=== PATIENT | male | born 1930 | race African-American/Black ===

== ENCOUNTER 2018-11-20 15:52 | Inpatient (IN) | payer OTHER ==
--- NOTE | 2018-11-20 16:13 | RAD REPORT ---
EXAM DESCRIPTION: RAD - Chest Single View - 11/20/2018 4:08 pm CLINICAL HISTORY: CONGESTION Chest pain. COMPARISON: No comparisons FINDINGS: Portable technique limits examination quality. The lungs are grossly clear. The heart is normal in size. No displaced fractures. IMPRESSION: No acute intrathoracic process suspected.
[2018-11-20] MEDS ORDERED: VANCOMYCIN/NS 1 gm 1 GM/250 ML BAG IV SCH (16:15)
[2018-11-20] MEDS ORDERED: NA CHLORIDE 0.9% 2,000 ML ONE (16:23)
[2018-11-20] MEDS ORDERED: CEFEPIME 1 GM/100 ML BAG IV ONE (16:24)
[2018-11-20] MEDS ORDERED: ACETAMINOPHEN 650MG/RECT SUPP PR ONE (16:25)
--- NOTE | 2018-11-20 16:30 | RAD REPORT ---
EXAM DESCRIPTION: CT - Head Brain Wo Cont - 11/20/2018 4:24 pm CLINICAL HISTORY: CONFUSED Headache, drowsiness COMPARISON: <Comparisons> TECHNIQUE: All CT scans are performed using dose optimization technique as appropriate and may inclu de automated exposure control or mA/KV adjustment according to patient size. FINDINGS: No intracranial hemorrhage, hydrocephalus or extra-axial fluid collection.Advanced general ized brain atrophy is present with advanced periventricular and deep white matter chronic microvascul ar ischemic changes.No areas of brain edema or evidence of midline shift. The paranasal sinuses and mastoids are clear. The calvarium is intact. IMPRESSION: No acute intracranial abnormality.
[2018-11-20 17:06] LABS: Absolute Lymphocytes (CBC) 0.5 K/uL (0.7-4.9); Basophils % 0.3 % (0-1.3); Hematocrit 35.2 % (39.6-49.0); MPV 10.3 fL (7.6-11.3); Monocytes % 5.2 % (3.3-12.3); RBC Red Blood Cell Count 3.64 M/uL (4.33-5.43)
[2018-11-20 17:09] LABS: Protime INR 2.11
[2018-11-20 17:24] LABS: ALT/SGPT 57 U/L (12-78); AST/SGOT 52 U/L (15-37); Albumin 2.9 g/dL (3.4-5.0); Alkaline Phosphatase 76 U/L (45-117); BUN Blood Urea Nitrogen 37 mg/dL (7-18); Bicarbonate 28 mmol/L (21-32); Bilirubin Direct 0.2 mg/dL (0-0.2); Bilirubin Total 0.7 mg/dL (0.2-1.0); CKMB Creatine Kinase MB < 1.0 ng/mL (0.3-3.6); Glucose Level 116 mg/dL (74-106); Potassium 4.1 mmol/L (3.5-5.1); Sodium Level 149 mmol/L (136-145); Troponin (Emerg Dept Use Only) 0.14 ng/mL (0.0-0.045)
[2018-11-20 17:32] LABS: Platelet Estimate ADEQ; Urine White Blood Cell Casts OK
[2018-11-20 17:33] LABS: Blood Morphology Comment NOT SEEN (NOT SEEN); Polychromasia SLIGHT
--- NOTE | 2018-11-20 18:10 | ER ---
Nurse's Notes [facility] Name: Sly Sutton Age: 87 yrs Sex: Male : 1930 Arrival Date: 11/20/2018 Time: 15:56 Bed 24 Private MD: Diagnosis: Cystitis, unspecified without hematuria;Sepsis due to other Gram-negative organisms Presentation: 11/20 15:50 Presenting complaint: EMS states: Pt from [facility], staff reports that pt was at ph baseline mental status at 1400, then found w/ AMS and high fever approx 1 hr later, hx of dementia but can usually speak and hold conversation, now only responding w/ grunts, temp for EMS 102.7, pt having difficulty drinking fluids so no PO meds given, IV initiated and approx 200 mL NS given, BBB noted on 12 lead, BP WNL, HR 105, BGL 106. Transition of care: patient was received from another setting of care (long-term care facility), [facility]. Onset of symptoms was November 20, 2018. Risk Assessment: Do you want to hurt yourself or someone else? Patient reports no desire to harm self or others. Initial Sepsis Screen: Does the patient meet any 2 criteria? RR > 20 per min. Temp <36.0*C (96.8*F)) or > 38.3*C (100.9*F). Altered Mental Status. HR > 90 bpm. Yes Does the patient have a suspected source of infection? Yes: Productive cough/pneumonia. Care prior to arrival: Medication(s) given: Normal saline infusion, 200 mL IV initiated. 20 GA, in the left hand, Glucose check: 106 Oxygen administered. via nasal cannula. 15:50 Method Of Arrival: EMS: [facility] ph 15:50 Acuity: FIORELLA 2 ph Historical: - Allergies: 16:18 No Known Allergies; ph - Home Meds: 18:16 amlodipine 5 mg tab 1 tab once daily [Active]; aspirin 81 mg Oral chew 1 tab once daily ph [Active]; cyanocobalamin (vitamin B-12) 500 mcg oral tab daily [Active]; furosemide 20 mg Oral tab 1 tab once daily [Active]; isosorbide mononitrate 30 mg Oral Tb24 1 tab once daily [Active]; levothyroxine 50 mcg tab 1 tab once daily [Active]; lovastatin 20 mg Oral tab 1 tab once daily [Active]; melatonin 3 mg Oral tab nightly [Active]; Risperdal 0.25 mg Oral tab 1 tabs as needed [Active]; Xarelto 15 mg oral tab [Active]; Risperdal 0.25 mg Oral tab 1 tabs nightly [Active]; Tylenol 325 mg oral tab 2 tabs every 6 hours [Active]; - PMHx: 16:18 Dementia; UTI; Hypertension; Hypothyroidism; Hyperlipidemia; DVT; ph - Immunization history:: Adult Immunizations unknown. - Social history:: Patient/guardian denies using alcohol, street drugs, The patient lives in [place] [facility], Smoking status: unknown. - Ebola Screening: : No symptoms or risks identified at this time. - Code Status:: DNR. Screenin:20 Abuse screen: Denies threats or abuse. Denies injuries from another. Nutritional ph screening: No deficits noted. Tuberculosis screening: No symptoms or risk factors identified. Fall Risk Fall in past 12 months (25 points). Secondary diagnosis (15 points) dementia, IV access (20 points). Ambulatory Aid- None/Bed Rest/Nurse Assist (0 pts). Gait- Weak (10 pts.). Mental Status- Overestimates/Forgets Limitations (15 pts.). Total Garcia Fall Scale indicates High Risk Score (45 or more points). Fall prevention measures have been instituted. Side Rails Up X 2 Placed Close to Nursing Station Frequent Obs/Assessments Occuring. Assessment: 16:10 General: Appears in no apparent distress. well groomed, Behavior is drowsy, quiet. ph Pain: Unable to use pain scale. Patient is disoriented. Neuro: Level of Consciousness is awake, lethargic, listless, Oriented to person. Cardiovascular: Capillary refill < 3 seconds in bilateral fingers Patient's skin is warm and dry. Respiratory: Airway is patent Respiratory effort is even, unlabored, Respiratory pattern is regular, symmetrical. GI: Abdomen is round non-distended. Derm: Skin is intact, with poor turgor Skin is normal, Skin temperature is hot. Musculoskeletal: Circulation, motion, and sensation intact. Range of motion: intact in all extremities, Swelling absent. 17:20 Reassessment: Attempted straight cath to obtain urine, unable to advance past prostate, ph ERP notified, will attempt again w/ coud catheter. 17:38 Reassessment: Patient appears in no apparent distress at this time. Patient and/or ph family updated on plan of care and expected duration. Pain level reassessed. Pt resting quietly, appears more alert and responsive, oriented to person only, family at bedside, oral temp decreased to 100.4, other VS WNL. 18:31 Reassessment: Patient appears in no apparent distress at this time. Patient and/or ph family updated on plan of care and expected duration. Pain level reassessed. Pt more alert, found standing at foot of bed attempting to remove lines and monitoring equipment, assisted back into bed by myself and another nurse, moved to bed 3 to remain in site of nurse, now resting quietly w/ stable VS. 18:38 Reassessment: Patient appears in no apparent distress at this time. Patient and/or ph family updated on plan of care and expected duration. Pain level reassessed. Dr Hardy at bedside. 19:09 Reassessment: Patient appears in no apparent distress at this time. Patient and/or ph family updated on plan of care and expected duration. Pain level reassessed. Pt to be ER hold until bed available, report given to MONIK Young and pt moved to ED 24. 19:43 Reassessment: Patient appears in no apparent distress at this time. No changes from fv previously documented assessment. Patient and/or family updated on plan of care and expected duration. Pain level reassessed. Patient alert and oriented x2 tries to get out of bed, but cooperative in getting back to bed. Vital Signs: 16:00 BP 144 / 81; Pulse 105; Resp 22; Temp 103.2; Pulse Ox 92% on R/A; Weight 74.84 kg; ph 16:30 BP 132 / 68; Pulse 102; Resp 18; Pulse Ox 98% on 2 lpm NC; ph 17:15 BP 112 / 70; Pulse 94; Resp 18; Pulse Ox 100% on 2 lpm NC; ph 17:15 Temp 100.4(O); ph 18:00 BP 126 / 76; Pulse 96; Resp 20; Pulse Ox 99% ; ph 18:38 BP 124 / 62; Pulse 94; Resp 16; Temp 99.2; Pulse Ox 98% on R/A; ph 20:28 BP 139 / 89; Pulse 97; Resp 20; Temp 98.7; Pulse Ox 99% ; fv Sravani Coma Score: 16:00 Eye Response: spontaneous(4). Verbal Response: incomprehensible(2). Motor Response: ph obeys commands(6). Total: 12. 18:38 Eye Response: spontaneous(4). Verbal Response: confused(4). Motor Response: obeys ph commands(6). Total: 14. ED Course: 15:56 Patient arrived in ED. ph 15:59 Shasta Ugalde MD is Attending Physician. ma2 16:00 Tayla Goff RN is Primary Nurse. ph 16:08 Chest Single View XRAY In Process Unspecified. EDMS 16:19 Maintain EMS IV. Dressing intact. Good blood return noted. Site clean \T\ dry. Gauge \T\ ph site: 20 G Lhand. Oxygen administration via nasal cannula \T\ 2L/min. 16:24 CT completed. Patient tolerated procedure well. Patient moved back from CT. mw3 16:25 CT Head Brain wo Cont In Process Unspecified. EDMS 16:26 Triage completed. ph 16:26 Arm band placed on Patient placed in an exam room, on a stretcher, on oxygen, on ph director of cardiac cath lab, on pulse oximetry. 16:26 Patient has correct armband on for positive identification. Placed in gown. Bed in low ph position. Call light in reach. Side rails up X2. etiquette coach on. Pulse ox on. NIBP on. Head of bed elevated. 16:50 Inserted saline lock: in left upper arm, using aseptic technique. Blood collected. ph inserted by Misael Wilson RN Accessed peripheral vein via ultrasound, utilizing dynamic ultrasound technique using 20G Nexia IV catheter Clean \T\ dry. Dressing intact. 18:08 Napoleon Elkins MD is Hospitalizing Provider. ma2 18:41 No provider procedures requiring assistance completed. Patient admitted, IV remains in ph place. Administered Medications: 16:19 Drug: Acetaminophen Suppository 650 mg Route: CO; ca1 17:44 Follow up: Response: No adverse reaction; Temperature is decreased ph 16:50 Drug: NS 0.9% (30 ml/kg) 30 ml/kg {Note: 2000 mL .} Route: IV; Rate: bolus; Site: left ph upper arm; 18:43 Follow up: Response: No adverse reaction; IV Status: Completed infusion; IV Intake: ph 2000ml 17:00 Drug: vancoMYCIN 1 grams Route: IVPB; Infused Over: 2 hrs; Site: left upper arm; ph 18:30 Follow up: Response: No adverse reaction; IV Status: Completed infusion; IV Intake: ph 250ml 17:13 Drug: Cefepime 1 grams Route: IVPB; Rate: 200 ml/hr; Infused Over: 30 mins; Site: left ph hand; 18:00 Follow up: Response: No adverse reaction; IV Status: Completed infusion; IV Intake: ph 100ml Intake: 18:00 IV: 100ml; Total: 100ml. ph 18:30 IV: 250ml; Total: 350ml. ph 18:43 IV: 2000ml; Total: 2350ml. ph Outcome: 18:09 Decision to Hospitalize by Provider. ma2 19:10 Admitted to ER Hold. Please see [facility] for further documentation. ph 19:10 Condition: improved 11/21 00:07 Patient left the ED. lt1 Signatures: Dispatcher [employer] Tayla Bauer RN RN Len Piper RN RN Shasta Ugalde MD MD ma2 Mary Cueva mw3 Ora Arizmendi RN RN ca1 Tran, Leah lt1
--- NOTE | 2018-11-20 18:10 | EDPHYS ---
Physician Documentation [facility] Name: Sly Sutton Age: 87 yrs Sex: Male : 1930 Arrival Date: 11/20/2018 Time: 15:56 Bed 24 Private MD: ED Physician Shasta Ugalde HPI: 11/20 16:01 This 87 yrs old Male presents to ER via Unassigned with complaints of confusion . ma2 16:01 The patient presents with confusion, decreased mental status. Onset: The ma2 symptoms/episode began/occurred gradually, 1 day(s) ago. Associated signs and symptoms: Pertinent negatives: ataxia, combativeness, dizziness. Associated signs and symptoms: Pertinent positives: confusion. Current symptoms: In the emergency department the patient's symptoms are unchanged from the initial presentation. Patient's baseline: Neuro: alert but confused, orientated to person. Unable to obtain HPI due to altered mental status. The patient has experienced similar episodes in the past. Historical: - Allergies: 16:18 No Known Allergies; ph - Home Meds: 18:16 amlodipine 5 mg tab 1 tab once daily [Active]; aspirin 81 mg Oral chew 1 tab once daily ph [Active]; cyanocobalamin (vitamin B-12) 500 mcg oral tab daily [Active]; furosemide 20 mg Oral tab 1 tab once daily [Active]; isosorbide mononitrate 30 mg Oral Tb24 1 tab once daily [Active]; levothyroxine 50 mcg tab 1 tab once daily [Active]; lovastatin 20 mg Oral tab 1 tab once daily [Active]; melatonin 3 mg Oral tab nightly [Active]; Risperdal 0.25 mg Oral tab 1 tabs as needed [Active]; Xarelto 15 mg oral tab [Active]; Risperdal 0.25 mg Oral tab 1 tabs nightly [Active]; Tylenol 325 mg oral tab 2 tabs every 6 hours [Active]; - PMHx: 16:18 Dementia; UTI; Hypertension; Hypothyroidism; Hyperlipidemia; DVT; ph - Immunization history:: Adult Immunizations unknown. - Social history:: Patient/guardian denies using alcohol, street drugs, The patient lives in a retirement, Smoking status: unknown. - Ebola Screening: : No symptoms or risks identified at this time. - Code Status:: DNR. ROS: 16:01 Eyes: Negative for injury, pain, redness, and discharge. ma2 16:01 All other systems are negative. 16:01 Unable to obtain ROS due to altered mental status. Exam: 16:01 Constitutional: This is a well developed, well nourished patient who is awake, alert, ma2 and in no acute distress. Eyes: Pupils equal round and reactive to light, extra-ocular motions intact. Lids and lashes normal. Conjunctiva and sclera are non-icteric and not injected. Cornea within normal limits. Periorbital areas with no swelling, redness, or edema. Neck: Trachea midline, no thyromegaly or masses palpated, and no cervical lymphadenopathy. Supple, full range of motion without nuchal rigidity, or vertebral point tenderness. No Meningismus. Chest/axilla: Normal chest wall appearance and motion. Nontender with no deformity. No lesions are appreciated. Cardiovascular: Regular rate and rhythm with a normal S1 and S2. No gallops, murmurs, or rubs. Normal PMI, no JVD. No pulse deficits. Abdomen/GI: Soft, non-tender, with normal bowel sounds. No distension or tympany. No guarding or rebound. No evidence of tenderness throughout. MS/ Extremity: Pulses equal, no cyanosis. Neurovascular intact. Full, normal range of motion. Neuro: Awake and alert, GCS 15, oriented to person, place, time, and situation. Cranial nerves II-XII grossly intact. Motor strength 5/5 in all extremities. Sensory grossly intact. Cerebellar exam normal. Normal gait. 16:01 Respiratory: moderate respiratory distress is noted, Respirations: labored breathing, Breath sounds: rhonchi, that are moderate, are located in both bases. Vital Signs: 16:00 BP 144 / 81; Pulse 105; Resp 22; Temp 103.2; Pulse Ox 92% on R/A; Weight 74.84 kg; ph 16:30 BP 132 / 68; Pulse 102; Resp 18; Pulse Ox 98% on 2 lpm NC; ph 17:15 BP 112 / 70; Pulse 94; Resp 18; Pulse Ox 100% on 2 lpm NC; ph 17:15 Temp 100.4(O); ph 18:00 BP 126 / 76; Pulse 96; Resp 20; Pulse Ox 99% ; ph 18:38 BP 124 / 62; Pulse 94; Resp 16; Temp 99.2; Pulse Ox 98% on R/A; ph 20:28 BP 139 / 89; Pulse 97; Resp 20; Temp 98.7; Pulse Ox 99% ; fv Sravani Coma Score: 16:00 Eye Response: spontaneous(4). Verbal Response: incomprehensible(2). Motor Response: ph obeys commands(6). Total: 12. 18:38 Eye Response: spontaneous(4). Verbal Response: confused(4). Motor Response: obeys ph commands(6). Total: 14. MDM: 15:59 Patient medically screened. [facility] 16:01 Differential Diagnosis: pneumonia, sepsis, TIA, UTI, volume depletion. [facility] 18:07 Data reviewed: vital signs, nurses notes. Counseling: I had a detailed discussion with [facility] the patient and/or guardian regarding: the historical points, exam findings, and any diagnostic results supporting the discharge/admit diagnosis, the presence of at least one elevated blood pressure reading (>120/80) during this emergency department visit, the need for further work-up and treatment in the hospital. Response to treatment: the patient's symptoms have markedly improved after treatment. ED course: has UTI, sepsis, elevated trop ekg with rbbb no ischemic changed no chest pain discussed with dr. elkins ]. 07 16:01 Order name: Urine Culture [facility] 11/20 16:01 Order name: Basic Metabolic Panel [facility] 11/20 16:01 Order name: Blood Culture Adult (2) [facility] 11/20 16:01 Order name: CBC with Diff [facility] 11/20 16:01 Order name: Ckmb [facility] 11/20 16:01 Order name: CPK [facility] 11/20 16:01 Order name: Lactate [facility] 11/20 16:01 Order name: LFT's [facility] 11/20 16:01 Order name: Lipase [facility] 11/20 16:01 Order name: Procalcitonin [facility] 11/20 16:01 Order name: Protime (+inr); Complete Time: 17:36 [facility] 11/20 16:01 Order name: Ptt, Activated; Complete Time: 17:36 [facility] 11/20 16:01 Order name: Troponin (emerg Dept Use Only); Complete Time: 17:36 [facility] 11/20 16:01 Order name: Urine Microscopic Only [facility] 11/20 16:01 Order name: Chest Single View XRAY; Complete Time: 16:45 [facility] 11/20 16:01 Order name: CT Head Brain wo Cont; Complete Time: 16:45 [facility] 11/20 16:02 Order name: Urine Culture [facility] 11/20 16:02 Order name: Basic Metabolic Panel; Complete Time: 17:41 [facility] 11/20 16:03 Order name: Blood Culture [facility] 11/20 16:03 Order name: CBC with Automated Diff; Complete Time: 17:36 [facility] 11/20 16:03 Order name: CKMB Creatine Kinase MB; Complete Time: 17:41 [facility] 11/20 16:03 Order name: Creatine Phosphokinase; Complete Time: 17:41 [facility] 11/20 16:03 Order name: Lactate; Complete Time: 17:36 [facility] 11/20 16:04 Order name: Liver (Hepatic) Function; Complete Time: 17:41 [facility] 11/20 16:04 Order name: Lipase; Complete Time: 17:36 [facility] 11/20 16:04 Order name: Procalcitonin; Complete Time: 17:41 [facility] 11/20 17:07 Order name: CBC Smear Scan; Complete Time: 17:36 [facility] 11/20 18:10 Order name: Urine Dipstick--Ancillary (enter results) 11/20 16:01 Order name: Accucheck; Complete Time: 17:13 [facility] 11/20 16:01 Order name: Cardiac monitoring; Complete Time: 17:13 [facility] 11/20 16:01 Order name: EKG - Nurse/Tech; Complete Time: 17:13 [facility] 11/20 16:01 Order name: IV Saline Lock - Large Bore; Complete Time: 17:13 [facility] 11/20 16:01 Order name: Labs collected and sent; Complete Time: 17:13 [facility] 11/20 16:01 Order name: O2 Per Protocol; Complete Time: 17:13 [facility] 11/20 16:01 Order name: O2 Sat Monitoring; Complete Time: 17:15 [facility] 11/20 16:01 Order name: Urine Dipstick-Ancillary (obtain specimen); Complete Time: 18:43 [facility] 11/20 18:16 Order name: CONS Pharmacy Consult [facility] 11/20 18:16 Order name: NPO EDMS Administered Medications: 16:19 Drug: Acetaminophen Suppository 650 mg Route: MO; ca1 17:44 Follow up: Response: No adverse reaction; Temperature is decreased ph 16:50 Drug: NS 0.9% (30 ml/kg) 30 ml/kg {Note: 2000 mL .} Route: IV; Rate: bolus; Site: left upper arm; 18:43 Follow up: Response: No adverse reaction; IV Status: Completed infusion; IV Intake: ph 2000ml 17:00 Drug: vancoMYCIN 1 grams Route: IVPB; Infused Over: 2 hrs; Site: left upper arm; ph 18:30 Follow up: Response: No adverse reaction; IV Status: Completed infusion; IV Intake: ph 250ml 17:13 Drug: Cefepime 1 grams Route: IVPB; Rate: 200 ml/hr; Infused Over: 30 mins; Site: left hand; 18:00 Follow up: Response: No adverse reaction; IV Status: Completed infusion; IV Intake: ph 100ml Disposition: 11/20/18 18:09 Hospitalization ordered by Napoleon Elkins for Inpatient Admission. Preliminary diagnosis are Cystitis, unspecified without hematuria, Sepsis due to other Gram-negative organisms. - Bed requested for Telemetry/MedSurg (Inpatient). - Status is Inpatient Admission. lt1 - Condition is Guarded. - Problem is new. - Symptoms have improved. UTI on Admission? Yes Signatures: Dispatcher [employer] EDMS Susana Crawley RN RN Tayla Goff RN RN Shasta Ugalde MD MD nm2 Ora Arizmendi RN RN [address], [place] lt1 Corrections: (The following items were deleted from the chart) 21:27 18:09 Hospitalization Ordered by Napoleon Elkins MD for Inpatient Admission. Preliminary diagnosis is Cystitis, unspecified without hematuria; Sepsis due to other Gram-negative organisms. Bed requested for Telemetry/MedSurg (Inpatient). Status is Inpatient Admission. Condition is Guarded. Problem is new. Symptoms have improved. UTI on Admission? Yes. ma2 11/21 00:07 11/20 21:27 11/20/2018 18:09 Hospitalization Ordered by Napoleon Elkins MD for lt1 Inpatient Admission. Preliminary diagnosis is Cystitis, unspecified without hematuria; Sepsis due to other Gram-negative organisms. Bed requested for Telemetry/MedSurg (Inpatient). Status is Inpatient Admission. Condition is Guarded. Problem is new. Symptoms have improved. UTI on Admission? Yes. fc
[2018-11-20 18:14] LABS: Urine Blood 3+ (NEG); Urine Glucose NEGATIVE (NEG); Urine Protein NEGATIVE (NEG)
[2018-11-20 18:14] LABS: Urine Volume 0.5 ML
[2018-11-20 18:16] LABS: Urine Bacteria 20-50 /HPF (NONE SEEN); Urine Culture Reflex Order REFLEXED
[2018-11-20] MEDS ORDERED: NA CHLORIDE 0.9% 1,000 ML ONE (20:18)
[2018-11-20] MEDS: NA CHLORIDE 0.9% 1,000 ML IV SCH (20:40)
[2018-11-21] MEDS: NA CHLORIDE 0.9% 1,000 ML IV SCH (05:00)
[2018-11-21 07:17] LABS: Absolute Lymphocytes (CBC) 1.7 K/uL (0.7-4.9); Basophils % 0.8 % (0-1.3); Eosinophils % 0.1 % (0-4.4); Hematocrit 30.3 % (39.6-49.0); Lymphocytes % 10.2 % (15.3-44.8); RBC Red Blood Cell Count 3.18 M/uL (4.33-5.43)
[2018-11-21 07:35] LABS: Albumin 2.4 g/dL (3.4-5.0); Bilirubin Total 0.8 mg/dL (0.2-1.0); Potassium 4.3 mmol/L (3.5-5.1); Protein, Total 6.9 g/dL (6.4-8.2)
--- NOTE | 2018-11-21 08:44 | EKG ---
Test Date: 2018-11-20 Test Time: 16:33:41 Check Weigher: FERNANDO MEASUREMENT RESULTS: Intervals: Rate: 102 DC: 144 QRSD: 134 QT: 384 QTc: 500 [place]: P: 79 DC: 144 QRS: -78 T: 68 INTERPRETIVE STATEMENTS: Sinus tachycardia with premature atrial complexes Right bundle branch block Left anterior fascicular block Bifascicular block Septal infarct, age undetermined Abnormal ECG No previous ECG available for comparison Electronically Signed On 11-21-18 08:42:25 CDT by Dominic Garcia
[2018-11-21 10:50] LABS: Blood Morphology Comment NOT SEEN (NOT SEEN); Platelet Estimate ADEQ
--- NOTE | 2018-11-21 11:15 | P.HP ---
Certification for Inpatient With expected LOS: >2 Midnights Practitioner: I am a practitioner with admitting privileges, knowledge of patient current condition, hospital course, and medical plan of care. Services: Services provided to patient in accordance with Admission requirements found in Title 42 Section 412.3 of the Code of Federal Regulations Patient History Date of Service: 11/21/18 Reason for admission: Altered mental status History of Present Illness: Patient is 87 years of age with a history of underlying dementia [facility] with altered mental status he was very altered unrest arousable delirious agitated appeared to be volume depleted hypernatremic renal insufficiency elevated CPK patient is nonverbal patient was febrile Allergies No Known Allergies Allergy (Verified 11/21/18 06:45) Home Medications: Amlodipine [Norvasc*] 1 tab PO DAILY 11/21/18 Aspirin [Aspir-Low] 1 tab PO DAILY 11/21/18 Cyanocobalamin (Vitamin B-12) [B-12] 1 tab PO DAILY 11/21/18 Furosemide 1 tab PO DAILY 11/21/18 Isosorbide Mononitrate [Isosorbide Mononitrate ER] 1 tab PO DAILY 11/21/18 Levothyroxine Sodium 1 tab PO DAILY 11/21/18 Lovastatin 1 tab PO DAILY 11/21/18 Melatonin 1 tab PO BEDTIME 11/21/18 Risperidone [Risperdal] 1 tab PO PRN PRN 11/21/18 Rivaroxaban [Xarelto*] 1 tab PO DAILY 11/21/18 - Past Medical/Surgical History Diabetic: No -: Dementia -: HTN -: Hypothyroidism -: Hyperlipidemia -: DVT - Social History Smoking Status: Unknown if ever smoked CD- Drugs: No Caffeine use: No Place of Residence: [facility] Review of Systems is unable to be obtained Physical Examination - Vital Signs Temperature: 98.8 F Blood Pressure: 163/74 Pulse: 90 Respirations: 18 Pulse Ox (%): 99 - Physical Exam General: Alert, Confused, Delirious HEENT: Atraumatic Neck: Supple Respiratory: Diminished Cardiovascular: No edema, Normal S1 S2 Gastrointestinal: Normal bowel sounds, Soft and benign Musculoskeletal: No clubbing, No swelling Neurological: Other (Appears to be moving all his extremities) - Studies Laboratory Data (last 24 hrs) 11/20/18 16:50: PT 24.2 H, INR 2.11, APTT 35.5 11/20/18 16:50: Lipase 180 11/20/18 16:50: WBC 13.5 H, Hgb 10.8 L, Hct 35.2 L, Plt Count 245 11/20/18 16:50: Sodium 149 H, Potassium 4.1, BUN 37 H, Creatinine 2.00 H, Glucose 116 H, Total Bilirubin 0.7, AST 52 H, ALT 57, Alkaline Phosphatase 76 Assessment and Plan - Problems (Diagnosis) (1) Hypernatremia Current Visit: Yes Status: Acute Plan: Patient is 87 years of age admitted from [facility] with altered mental status is appears to be dehydrated with hypernatremia renal insufficiency CPK elevated white count is also elevated possible urinary tract infection white count is also elevated admit for IV fluids IV antibiotics cultures urinalysis shows 4+ gram-negative rods patient was febrile Plan to discharge in: 48 Hours - Advance Directives Does patient have a Living Will: Yes Does patient have a Durable POA for Healthcare: Yes
[2018-11-21] MEDS ORDERED: RISPERIDONE 0.25 MG TABLET PO PRN (11:16)
--- NOTE | 2018-11-21 11:22 | P.PN ---
Subjective Date of Service: 11/21/18 Chief Complaint: Altered mental status No changes still altered blood pressure elevated urinalysis positive for Gram negative rods Review of Systems is unable to be obtained Physical Examination - Vital Signs Temperature: 98.8 F Blood Pressure: 163/74 Pulse: 90 Respirations: 18 Pulse Ox (%): 99 - Physical Exam General: Unresponsive Neck: Supple Respiratory: Clear to auscultation bilaterally, Normal air movement Cardiovascular: No edema, Regular rate/rhythm - Studies Laboratory Data (last 24 hrs) 11/20/18 16:50: PT 24.2 H, INR 2.11, APTT 35.5 11/20/18 16:50: Lipase 180 11/20/18 16:50: WBC 13.5 H, Hgb 10.8 L, Hct 35.2 L, Plt Count 245 11/20/18 16:50: Sodium 149 H, Potassium 4.1, BUN 37 H, Creatinine 2.00 H, Glucose 116 H, Total Bilirubin 0.7, AST 52 H, ALT 57, Alkaline Phosphatase 76 Assessment & Plan - Problems (Diagnosis) (1) Hypernatremia Current Visit: Yes Status: Acute Plan: Patient admitted with volume depletion hypernatremia and renal insufficiency is renal function is improving blood cultures all pending patient is on Rocephin was changed to D5 water thyroid function tests labs
[2018-11-21] MEDS: D5 0.45 NS 1,000 ML IV SCH ×2 (11:45→21:18)
[2018-11-21] MEDS ORDERED: CEFTRIAXONE/SWI 1gm 1 GM/10 ML SYR IV SCH (12:00)
[2018-11-21] MEDS: ISOSORBIDE MONO SR 30 MG TAB PO SCH (12:04)
[2018-11-21] MEDS: ASPIRIN EC 81 MG TAB PO SCH (12:04)
[2018-11-21] MEDS: AMLODIPINE 5 MG TAB PO SCH (12:07)
[2018-11-21] MEDS: RIVAROXABAN 15 MG TABLET PO SCH (18:27)
[2018-11-22] MEDS: LEVOTHYROXINE SOD 0.05 MG TABLET PO SCH (05:37)
[2018-11-22 06:03] LABS: Absolute Lymphocytes (CBC) 0.9 K/uL (0.7-4.9); Basophils % 0.3 % (0-1.3); Eosinophils % 1.9 % (0-4.4); Lymphocytes % 8.8 % (15.3-44.8); MPV 10.7 fL (7.6-11.3); Monocytes % 4.9 % (3.3-12.3); RBC Red Blood Cell Count 3.18 M/uL (4.33-5.43)
[2018-11-22 06:18] LABS: Albumin 2.4 g/dL (3.4-5.0); Bilirubin Total 0.7 mg/dL (0.2-1.0); Potassium 3.5 mmol/L (3.5-5.1); Protein, Total 7.1 g/dL (6.4-8.2)
[2018-11-22] MEDS: D5 0.45 NS 1,000 ML IV SCH ×2 (08:00→18:00)
[2018-11-22] MEDS: Meropenem 1,000 MG in NA CHLORIDE 0.9% 100 ML IV SCH ×2 (09:00→22:20)
[2018-11-22] MEDS ORDERED: Meropenem 1000 MG/VIAL IV SCH (09:00)
[2018-11-22] MEDS: AMLODIPINE 5 MG TAB PO SCH (09:57)
[2018-11-22] MEDS: ASPIRIN EC 81 MG TAB PO SCH (09:57)
[2018-11-22] MEDS: ISOSORBIDE MONO SR 30 MG TAB PO SCH (09:57)
[2018-11-22] MEDS: RIVAROXABAN 15 MG TABLET PO SCH (19:03)
--- NOTE | 2018-11-22 19:39 | RAD REPORT ---
EXAM DESCRIPTION: RAD - Chest Single View - 11/22/2018 7:31 pm CLINICAL HISTORY: Device placement PICC line placement COMPARISON: November 20, 2018 FINDINGS: A PICC line has been inserted with its tip in the mid superior vena cava. The lungs appear clear of acute infiltrate. The heart is normal size. IMPRESSION: PICC line with its tip in the mid superior vena cava
--- NOTE | 2018-11-22 21:43 | PN ---
Date of Progress Note: 11/22/2018 Subjective: The patient is seen and examined. Chart reviewed and case discussed with RN. No family at the bedside. The patient unable to really participate in history due to his baseline dementia. Medications: List reviewed. Code Status: Full. Physical Examination: Vital Signs: Temperature 98.3, heart rate 71, blood pressure 105/56, respirations 18, O2 98% on room air. General: The patient is asleep, but arousable. Oriented to self only. CV: S1, S2. Regular rate and rhythm. Peripheral pulses present. Respiratory: Diminished breath sounds at the bases, otherwise, moving air well. No stridor. No use of accessory muscles. Gastrointestinal: Abdomen is soft, nontender, nondistended. Positive bowel sounds. Extremities: No clubbing, cyanosis, or edema. Neurologic: Nonfocal. Speech is somewhat difficult to understand, however, comprehensible. Laboratory Data: Sodium 148, potassium 3.5, chloride 114, CO2 27, BUN 22, creatinine 1.42, glucose 9 9, calcium 8.4. CK level is 665. Albumin 2.4. WBC 10.8, H and H 9.7 and 31. Platelets 229, neutro phils 84%. Urine culture growing out ESBL E coli. Blood cultures, no growth to date. Assessment And Plan: An 87-year-old male with: 1.Acute metabolic encephalopathy, likely related to UTI and the patient is still oriented x1. 2.Hypernatremia, improving. Sodium now at 148. We will continue to monitor. Continue IV fluids. 3.Acute versus acute on chronic kidney injury. Continue to monitor creatinine. Continue IV fluids. 4.Rhabdomyolysis. CK is improving. Continue IV fluids. 5.Acute cystitis with hematuria secondary to extended-spectrum beta-lactamase Escherichia coli. We will switch IV antibiotics to meropenem. We will obtain PICC line. The patient will need 2 weeks of meropenem as outpatient. 6.Hypothyroidism. TSH is normal. Continue Synthroid. 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 Continue Risperdal. 8.Obesity, BMI of 31. 9.Deep venous thrombosis prophylaxis. The patient is on anticoagulation. 10.Essential hypertension, stable. Continue home medications. 11.Hyperlipidemia. Continue statin. Discharge back to nursing facility once clinically improved. SA/MODL Voice ID: [id number] Report ID: [id number]
[2018-11-23 04:35] LABS: Absolute Lymphocytes (CBC) 0.9 K/uL (0.7-4.9); Basophils % 0.4 % (0-1.3); Hematocrit 28.5 % (39.6-49.0); Lymphocytes % 11.5 % (15.3-44.8); MPV 11.6 fL (7.6-11.3); Monocytes % 6.5 % (3.3-12.3); RBC Red Blood Cell Count 2.99 M/uL (4.33-5.43)
[2018-11-23 04:49] LABS: Albumin 2.2 g/dL (3.4-5.0); Bilirubin Total 0.4 mg/dL (0.2-1.0); Potassium 3.8 mmol/L (3.5-5.1); Protein, Total 6.7 g/dL (6.4-8.2)
[2018-11-23] MEDS: D5 0.45 NS 1,000 ML IV SCH ×3 (05:13→14:00)
[2018-11-23] MEDS: LEVOTHYROXINE SOD 0.05 MG TABLET PO SCH (05:14)
[2018-11-23] MEDS: AMLODIPINE 5 MG TAB PO SCH (08:29)
[2018-11-23] MEDS: Meropenem 1,000 MG in NA CHLORIDE 0.9% 100 ML IV SCH ×2 (08:29→21:00)
[2018-11-23] MEDS: ISOSORBIDE MONO SR 30 MG TAB PO SCH (08:30)
[2018-11-23] MEDS: ASPIRIN EC 81 MG TAB PO SCH (08:30)
[2018-11-23 13:45] LABS: Creatine Phosphokinase 1984 U/L (39-308)
[2018-11-23] MEDS: RIVAROXABAN 15 MG TABLET PO SCH (16:54)
--- NOTE | 2018-11-23 19:56 | PN ---
Date of Progress Note: 11/23/2018 Subjective: The patient seen and examined. Chart reviewed and case discussed with RN. No acute lonnie nts. The patient is much more alert today. Medications: List reviewed. Physical Examination: Vital Signs: Temperature 98, heart rate 71, blood pressure 139/73, respirations 20, O2 98% on room a ir. General: Awake, alert, oriented x3. Elderly male, obese, BMI 31. CV: S1, S2. Regular rate and rhythm. Peripheral pulses present. Respiratory: Moving air well bilaterally. No wheezing. Gastrointestinal: Abdomen is soft, nontender, nondistended. Positive bowel sounds. Extremities: No clubbing, cyanosis, or edema. Neurologic: Nonfocal. Laboratory Data: Sodium 147, potassium 3.8, chloride 113, CO2 29, BUN 23, creatinine 1.24, glucose 1 04, calcium 8.2. CK level is 335. Albumin 2.2. WBC 7.5, H and H 9 and 28.5, platelets 181, neutrop hils 78%. Blood culture 1/4 bottles growing ESBL E coli. Urine culture also growing ESBL E coli. C hest x-ray, PICC line with its tip in the mid superior vena cava. Assessment And Plan: An 87-year-old male with: 1.Acute metabolic encephalopathy, improving. The patient is still oriented to self only. This may be his baseline. We will touch base with family, likely secondary to urinary tract infection. 2.Acute cystitis with hematuria secondary to ESBL Escherichia coli. We will continue meropenem. Th e patient will need 2 weeks of treatment. 3.Bacteremia secondary to ESBL Escherichia coli. Continue with meropenem. The patient will need to complete long-term IV antibiotics. 4.Hypernatremia, improving. We will continue IV fluids. 5.Acute versus acute on chronic kidney injury. Kidney function is normalized. This was likely acut e secondary to the rhabdomyolysis. 6.Acute rhabdomyolysis, nontraumatic. CK levels improving. We will continue IV fluids. 7.Hypothyroidism. Continue Synthroid. 8.Dementia early onset without behavioral disturbance. Continue Risperdal. 9.Obesity, BMI 31. 10.Essential hypertension, stable. 11.Hyperlipidemia. We will continue statin. 12.Deep venous thrombosis prophylaxis. The patient is on anticoagulation. Plan: Discharge back to nursing facility once IV antibiotics have been set up. The patient will nee d repeat BMP in 1 week. Sodium level is essentially close to normal. It is 147. CK is close to nor mal as well. Kidney function is now normalized. /CICI Voice ID: [id number] Report ID: [id number]
--- NOTE | 2018-11-23 21:41 | CON ---
History Of Present Illness: This is an 87-year-old male. I was consulted for ESBL UTI and bacteremi a. The patient is feeling better. Denies any headache, nausea, vomiting, chest pain, abdominal pain , constipation, diarrhea. Coming from detention, not a good historian. Most of the history was o btained through hospitalist and nursing staff. Past Medical History: Includes dementia, hypertension, hypothyroidism, hyperlipidemia, DVT. Past Surgical History: None. Social History: Nonsmoker, nondrinker. half-way resident. Medication: Include meropenem. Allergies: NO KNOWN DRUG ALLERGIES. Review of Systems: A 10-point review was performed. Physical Examination: General: This is an 87-year-old male, lying in bed, not in any acute cardiopulmonary distress. Vital Signs: Temperature 98, pulse 71, respiration 18, blood pressure 139/73. HEENT: Unremarkable. Neck: Supple. Lungs: Basal crackles. Heart: S1 and S2, regular. Abdomen: Soft. Bowel sounds present. Extremities: No edema. Laboratory Data: Shows WBC 7.5 down from 13.5, hemoglobin 9, platelets are 181. Chemistry shows sod ium 147, potassium 3.8, chloride 113, bicarb 29, BUN 23, creatinine 1.2, glucose 104. Creatine kinas e 335, down from . Urinalysis initially shows 20-50 wbc, E. coli ESBL noted in the urine a nd blood. Assessment And Plan: Bacteremia and urosepsis secondary to Escherichia coli extended-spectrum beta-l actamases, currently being treated with meropenem, total course of 2 weeks. Continue antibiotic and supportive care. We will follow the patient as needed. Thank you Dr. Atkins for consult. CURTIS/CICI Voice ID: [id number] Report ID: [id number]
[2018-11-24] MEDS: LEVOTHYROXINE SOD 0.05 MG TABLET PO SCH (06:30)
[2018-11-24] MEDS: AMLODIPINE 5 MG TAB PO SCH (09:11)
[2018-11-24] MEDS: ISOSORBIDE MONO SR 30 MG TAB PO SCH (09:11)
[2018-11-24] MEDS: ASPIRIN EC 81 MG TAB PO SCH (09:11)
[2018-11-24] MEDS: D5 0.45 NS 1,000 ML IV SCH ×2 (10:00)
[2018-11-24] MEDS: Meropenem 1,000 MG in NA CHLORIDE 0.9% 100 ML IV SCH (10:11)
[2018-11-24 11:53] LABS: Potassium 3.4 mmol/L (3.5-5.1)
--- NOTE | 2018-11-24 16:45 | PN ---
Subjective: The patient is lying in bed. No new acute event. Chart reviewed. Objective: Vital Signs: Temperature 98, pulse 74, respirations 16, blood pressure 135/80. Lungs: Basilar crackles. Heart: S1, S2. Regular. Abdomen: Soft, nontender. Bowel sounds present. Extremity: No edema. Laboratory Data: No new labs for today. Assessment/plan: Bacteremia and urosepsis. Continue antibiotic total course of 2 weeks. We will fo llow the patient as needed. NF/MODL Voice ID: [id number] Report ID: [id number]
--- NOTE | 2018-11-25 14:45 | DS ---
Date of Discharge: 11/24/2018 Admitting Diagnoses: 1.Acute metabolic encephalopathy. 2.Acute hypernatremia. 3.Acute cystitis with hematuria. 4.Acute rhabdomyolysis. 5.Acute kidney injury. 6.Alzheimer's dementia, Alzheimer's type early onset without behavioral disturbance. 7.Essential hypertension, stable. 8.Hypothyroidism, stable. 9.Mixed hyperlipidemia, on statin. Discharge Diagnoses: 1.Acute metabolic encephalopathy, now back to baseline. 2.Acute cystitis with hematuria secondary to extended-spectrum beta-lactamases Escherichia coli, on meropenem. 3.Bacteremia secondary to extended-spectrum beta-lactamases Escherichia coli. The patient will need 2 weeks of IV meropenem. 4.Acute hypernatremia, improving. 5.Hypokalemia, corrected. 6.Acute kidney injury, resolved. 7.Acute rhabdomyolysis, resolved, nontraumatic. 8.Hypothyroidism, on Synthroid. 9.Dementia, early onset without behavioral disturbance. 10.Obesity, BMI 31. 11.Essential hypertension, stable. 12.Mixed hyperlipidemia, on statin. Hospital Course: The patient is an 87-year-old male from snf with past medical history of d ementia, hypertension, hyperlipidemia, comes in with mental status changes, volume depletion. The pa jake is found to be hypernatremic, who had acute rhabdo with acute kidney injury. The patient was s tarted on IV fluids. His symptoms improved. His sodium level trended down almost normal. CK level also trended downward. Kidney function normalized. The patient's mental status improved. The patie nt was also found to have UTI and was started on IV antibiotics. His cultures showed ESBL E coli. H e was switched over to meropenem. Blood cultures also grew out ESBL E coli. ID was consulted. Luis mmended 2 weeks of IV antibiotics with meropenem. He will need weekly CBC, CMP, ESR, and CRP. The p atient to have repeat cultures obtained prior to discontinuing antibiotics. The patient was then sta ble enough to transfer back to nursing facility. Medications: As per medication reconciliation list. Followup: Follow up with primary care physician in 2-3 days. Follow up with Infectious Disease, Dr. Newton in 2 weeks. Return to ER for worsening condition. Diet: Heart healthy. Activity: Fall precautions. Physical Examination: General: Awake, alert, and oriented x3. Elderly, obese male. CV: S1 and S2. Respiratory: Moving air well bilaterally. Gastrointestinal: Abdomen is soft, nontender, nondistended. Positive bowel sounds. Extremities: No clubbing, cyanosis, or edema. Neurologic: Nonfocal. Oriented x1. Total time spent discharging the patient was 36 minutes. /CICI Voice ID: [id number] Report ID: [id number]
== END 2018-11-24 15:31 | DRG 689 ==
LOC: SUPCPDRO 15:52 → ER 15:52 → ERHOLD 20:36 → 4TH 22:53
PROVIDERS: ADMIT Internal Medicine Sleep Medicine; ATTEND Internal Medicine Sleep Medicine
PROC: 02HV33Z Insertion of Infusion Device into Superior Vena Cava, Percutaneous Approach (ICD-10-PCS; principal; 2018-11-22)
DX: N30.01 Acute cystitis with hematuria (principal); G93.41 Metabolic encephalopathy; R78.81 Bacteremia; E87.0 Hyperosmolality and hypernatremia; N17.9 Acute kidney failure, unspecified; M62.82 Rhabdomyolysis; B96.20 Unspecified Escherichia coli [E. coli] as the cause of diseases classified elsewhere; Z16.12 Extended spectrum beta lactamase (ESBL) resistance; E87.6 Hypokalemia; E03.9 Hypothyroidism, unspecified; F03.90 Unspecified dementia, unspecified severity, without behavioral disturbance, psychotic disturbance, mood disturbance, and anxiety; E66.9 Obesity, unspecified; Z68.31 Body mass index [BMI] 31.0-31.9, adult; I10 Essential (primary) hypertension; E78.2 Mixed hyperlipidemia
CPT/HCPCS: 36415; 70450; 71045; 80048; 80053; 80076; 81003; 81015; 82550; 82553; 83605; 83690; 84145; 84443; 84484; 85025; 85610; 85730; 87040; 87077; 87086; 87088; 87186; 87205; 93005; 94760; 99285; J0692; J0696; J3370; J7030

== ENCOUNTER 2019-06-05 15:08 | Inpatient (IN) | payer OTHER ==
--- OUTSIDE RECORDS SUMMARY | 2019-06-05 15:11 | XMS REPORT | Continuity of Care Document ---
:1930 Author Organization [facility] Address [address] [place] [address] Phone Unavailable Care Team Providers Name Role Phone MARTHA ROCA MD Primary Care Physician Insurance Providers Guarantor Chau Sutton Address [address] [place] [address] Email [email or web address] [facility] Policy Number [id number] Subscriber's Name Chau Sutton Relationship Self / Same As Patient Group Number [id number] Group Name NA Advance Directives Directive Response Recorded Date/Time Advance Directives No 03/31/16 1:49pm Directive to Physicians/Living Will No 08/26/15 9:39am Health Care Proxy No 08/26/15 9:39am Organ Donor No 08/26/15 9:39am Medical Power of Survey Methodologist No 08/26/15 9:39am Patient/Family Given Education Material R/T Y - 04/04/18....SBM 04/04/18 11 :23am Directives? Chief Complaint and Reason for Visit Chief Complaint HEENTL Reason for Visit Bleeding from ear Problems Medical Problem Onset Date Status Hypoglycemia Unknown Acute Hypoglycemia Unknown Acute UTI (urinary tract infection) Unknown Acute Past Problems Medical Problem Onset Date Status Bleeding from ear Unknown Acute Medications Current Home Medications Medication Dose Units Route Directions Days Qty Instructions Start Date Amlodipine Besylate 1 Tab ORAL Daily 30 Tablet (Amlodipine Besylate*) 5 Mg Tab Aspirin (Aspirin *) 81 Mg ORAL Daily 81 Mg Chw Cyanocobalamin 500 Mcg ORAL Daily (Vitamin B-12) 500 Mcg Rafael Donepezil Hcl 23 Mg ORAL Daily (Aricept *) 23 Mg Tab Levothyroxine 1 Tab ORAL Daily 30 Tablet Sodium (Synthroid 50 Mcg*) 50 Mcg Tab Lovastatin 1 Tab ORAL Daily 30 Tablet (Lovastatin 20 Mg (Mevacor) *) 20 Mg Tab Memantine (Namenda 1 Tab ORAL Twice A Day 180 Tablet 10 Mg*) 10 Mg Tab Past Home Medications Medication Directions Ordered Status Acetamin/Codeine 300/30 Mg * Every 6 Hours As Needed for 10/27/14 Discontinued (Tylenol With Codeine #3 300/30 Pain Mg *) Tab, 1 Tab Oral B 12 , Discontinued Ciprofloxacin (Cipro 250 Mg *) Twice A Day Discontinued 250 Mg Tab, 1 Tab Oral Ciprofloxacin Hcl (Ciprofloxacin Twice A Day 10/27/14 Discontinued Hcl 250 Mg) 250 Mg Tab, 1 Tab Oral Coconut Oil (Bulk) (Coconut Oil) Discontinued Oil, Hydrocodone-Acetaminophen 5/325MG Q 8 Hrs Prn for Pain 10/27/14 Discontinued * (Viola 5/325MG *) 1 Tab Tab, 1 Tab Oral Social History Social History Problem Response Recorded Date/Time Onset Date Status Hx Alcohol Use No 03/31/2016 1:49pm Not Applicable Not Applicable Hx Physical Abuse No 04/04/2018 10:40am Not Applicable Not Applicable Smoking Status Start Date Stop Date Former smoker Hospital Discharge Instructions No hospital discharge instruction information available. Plan of Care Discharge Date 04/04/18 11:23am Instructions/Education Provided Ear Drainage Forms Provided Portal Welcome Letter Prescriptions See Medication Section Referrals MARTHA ROCA MD Address: [address] [place] [address] Additional Instructions/Education Ciprodex 4 drops to right ear every 12 hours for 7 days Cotton ball to right ear changes needed Clean her right ear before applying the ear drops Follow up with Dr. Walker tomorrow Return for new pr worsening of symptoms Functional Status No functional status information available. Allergies, Adverse Reactions, Alerts Allergen Type Severity Reaction Status Last Updated BEES Allergy Unknown Active 08/26/15 NKA Allergy Unknown Active 12/20/03 Immunizations No immunization information available. Vital Signs Acute Vital Signs Vital Response Date/Time Blood Pressure 139/53 mm Hg 04/04/2018 11:23am Pulse Pulse Rate (adult) 55 beats per minute (60 - 100) 04/04/2018 11:23am Respiratory Rate 20 breaths per minute (10 - 24) 04/04/2018 11:23am Temperature Source Oral 04/04/2018 11:23am Height 5 ft 11 in 04/04/2018 10:40am Weight 200 lb 04/04/2018 10:40am Body Mass Index 27.9 kg/m^2 04/04/2018 10:40am Results No relevant diagnostic test, laboratory data and/or discharge summary information available. Procedures No procedure information available. Encounters Encounter Location Arrival/Admit Date Discharge/Depart Date Attending Provider Departed [place] 04/04/18 10:16am 04/04/18 11:23am TREY RUCKER Emergency [facility] Recent Diagnosis
[2019-06-05] MEDS ORDERED: ACETAMINOPHEN 500 MG TAB ONE (15:32)
[2019-06-05] MEDS ORDERED: NA CHLORIDE 0.9% 3,000 ML ONE (15:32)
[2019-06-05] MEDS ORDERED: CEFTRIAXONE/SWI 1gm 1 GM/10 ML SYR ONE (15:33)
[2019-06-05 15:36] LABS: Basophils % 0.5 % (0-1.3); Hematocrit 37.7 % (39.6-49.0); Lymphocytes % 10.8 % (15.3-44.8); MPV 8.8 fL (7.6-11.3); RBC Red Blood Cell Count 4.09 M/uL (4.33-5.43)
[2019-06-05 15:40] LABS: Protime INR 1.36
[2019-06-05 15:53] LABS: ALT/SGPT 41 U/L (12-78); AST/SGOT 21 U/L (15-37); Albumin 3.8 g/dL (3.4-5.0); Alkaline Phosphatase 123 U/L (45-117); BUN Blood Urea Nitrogen 25 mg/dL (7-18); Bicarbonate 30 mmol/L (21-32); Bilirubin Direct 0.1 mg/dL (0-0.2); Bilirubin Total 0.5 mg/dL (0.2-1.0); CKMB Creatine Kinase MB < 1.0 ng/mL (0.3-3.6); Creatine Phosphokinase 81 U/L (39-308); Glucose Level 92 mg/dL (74-106); Lipase 132 U/L (73-393); Potassium 4.4 mmol/L (3.5-5.1); Protein, Total 8.9 g/dL (6.4-8.2); Sodium Level 141 mmol/L (136-145); Troponin (Emerg Dept Use Only) < 0.02 ng/mL (0.0-0.045)
--- NOTE | 2019-06-05 16:14 | RAD REPORT ---
EXAM DESCRIPTION: RAD - Chest Single View - 06/05/2019 3:36 pm CLINICAL HISTORY: Code sepsis chest film, altered mental status COMPARISON: November 2018 TECHNIQUE: AP portable chest image was obtained 1530 hours . FINDINGS: Lungs are clear. Heart and vasculature are normal. No measurable pleural effusion and no p neumothorax. No acute bony abnormality seen. No acute aortic findings suspected. IMPRESSION: No acute cardiopulmonary process. No significant interval change.
--- NOTE | 2019-06-05 18:02 | ER ---
Nurse's Notes [facility] Name: Sly Sutton Age: 88 yrs Sex: Male : 1930 Arrival Date: 06/05/2019 Time: 15:09 Bed 6 Private MD: Diagnosis: Severe sepsis without septic shock Presentation: 06/05 15:09 Initial Sepsis Screen: Does the patient meet any 2 criteria? RR > 20 per min. Temp aa5 <36.0*C (96.8*F)) or > 38.3*C (100.9*F). Altered Mental Status. HR > 90 bpm. Yes Does the patient have a suspected source of infection? Yes:. 15:09 Presenting complaint: EMS states: AMS reported by [facility]. Fever of aa5 100.2F. 15:09 Transition of care: patient was received from another setting of care ([facility] care [facility]. Onset of symptoms was June 05, 2019. Risk Assessment: Do you want to hurt yourself or someone else? Unable to obtain. Care prior to arrival: Glucose check: 147. 15:09 Acuity: FIORELLA 2 aa5 15:09 Method Of Arrival: EMS: [facility] aa5 Historical: - Allergies: 15:09 No Known Allergies; aa5 - Home Meds: 15:09 amlodipine 5 mg tab 1 tab once daily [Active]; aspirin 81 mg Oral chew 1 tab once daily aa5 [Active]; cyanocobalamin (vitamin B-12) 500 mcg Oral tab daily [Active]; furosemide 20 mg Oral tab 1 tab once daily [Active]; isosorbide mononitrate 30 mg Oral Tb24 1 tab once daily [Active]; levothyroxine 50 mcg tab 1 tab once daily [Active]; lovastatin 20 mg Oral tab 1 tab once daily [Active]; melatonin 3 mg Oral tab nightly [Active]; Risperdal 0.25 mg Oral tab 1 tabs as needed [Active]; Risperdal 0.25 mg Oral tab 1 tabs nightly [Active]; Tylenol 325 mg Oral tab 2 tabs every 6 hours [Active]; Xarelto 15 mg Oral tab [Active]; - PMHx: 15:09 Dementia; DVT; Hyperlipidemia; Hypertension; UTI; Hypothyroidism; aa5 - Immunization history:: Adult Immunizations unknown. - Social history:: Patient/guardian denies using alcohol, street drugs, The patient lives with family, Smoking status: unknown. - Ebola Screening: : No symptoms or risks identified at this time. - Family history:: not pertinent. Screenin:22 Fall Risk Fall in past 12 months (25 points). Secondary diagnosis (15 points) dementia, aa5 IV access (20 points). Mental Status- Overestimates/Forgets Limitations (15 pts.). Total Garcia Fall Scale indicates High Risk Score (45 or more points). Fall prevention measures have been instituted. Side Rails Up X 2 Placed Close to Nursing Station. 15:22 Abuse screen: no signs of abuse noted. Nutritional screening: No deficits noted. aa5 Tuberculosis screening: No symptoms or risk factors identified. Assessment: 15:09 General: Appears comfortable, Behavior is calm, cooperative. Pain: Denies pain. Neuro: aa5 Level of Consciousness is awake, confused, Oriented to person, [place] are equal bilaterally Moves all extremities. Speech is normal, Facial symmetry appears normal, Pupils are PERRL. Cardiovascular: Heart tones S1 S2 present Rhythm is regular. Respiratory: Airway is patent Respiratory effort is even, unlabored, Respiratory pattern is regular, symmetrical, Breath sounds are clear bilaterally. Denies cough, shortness of breath. GI: Abdomen is round Bowel sounds present X 4 quads. Abd is non tender X 4 quads. : brief noted. EENT: No signs and/or symptoms were reported regarding the EENT system. Derm: Skin is dry, Skin is normal, Skin temperature is hot. Musculoskeletal: Range of motion: intact in all extremities. 15:40 Neuro: Level of Consciousness is awake, confused, Oriented to person. Respiratory: aa5 Airway is patent Respiratory effort is even, unlabored, Respiratory pattern is regular, symmetrical. Derm: Skin is dry, Skin is normal, Skin temperature is warm. 16:47 Reassessment: Pt sitting up in bed watching TV. Bed remains locked in low position, aa5 side rails x 2. . Neuro: Level of Consciousness is awake, confused, Oriented to person. Respiratory: Airway is patent Respiratory effort is even, unlabored, Respiratory pattern is regular, symmetrical. Derm: Skin is dry, Skin is normal, Skin temperature is warm. 17:25 Reassessment: Pt attempting to get out of bed, pt currently sitting at foot of bed, aa5 bleeding noted from IV site (20G to R FA), blood noted on floor and pt's gown. Pt cleaned and clean gown applied. Room cleaned. Pt cleaned of urinary incontinence, clean brief applied. Pt placed back in bed, lying down. . 18:00 Reassessment: Family at bedside at this time. . aa5 18:15 Reassessment: Several attempts made for straight cath using coud 14Fr/16Fr catheters aa5 and 12Fr/10Fr regular catheters without success. was notified. . 18:25 Reassessment: Dr. Raphael at bedside speaking to family and patient. Pt back from CT aa5 scan. . 19:39 Reassessment: CONDOM CATH APPLIED. rv Vital Signs: 15:10 BP 180 / 95; Pulse 115; Resp 22 S; Temp 103.2(O); Pulse Ox 96% on R/A; aa5 15:29 Weight 100 kg; iw 15:30 BP 172 / 92; Pulse 117; Resp 20 S; Pulse Ox 97% on R/A; aa5 16:47 BP 142 / 73; Pulse 83; Resp 20 S; Temp 101.7(O); Pulse Ox 96% on R/A; aa5 17:20 BP 141 / 79; Pulse 85; Resp 16 S; Pulse Ox 97% on R/A; aa5 18:00 BP 139 / 79; Pulse 87; Resp 18 S; Temp 101.0(O); Pulse Ox 96% on R/A; aa5 19:41 BP 130 / 75; Pulse 82; Resp 16; Temp 99; Pulse Ox 99% ; rv 20:21 BP 165 / 81; Pulse 82; Resp 12; Pulse Ox 99% on R/A; rv ED Course: 15:09 Patient arrived in ED. aa5 15:09 Arm band placed on. aa5 15:09 Patient has correct armband on for positive identification. Placed in gown. Bed in low aa5 position. Call light in reach. Side rails up X2. monitoring coordinator on. Pulse ox on. NIBP on. 15:11 Regla Rowell RN is Primary Nurse. aa5 15:12 Triage completed. aa5 15:16 Shasta Ugalde MD is Attending Physician. ma2 15:20 Inserted saline lock: 22 gauge in right hand, using aseptic technique. aa5 15:22 Inserted saline lock: 22 gauge in right antecubital area, using aseptic technique. aa5 Blood collected. 15:22 Initial lab(s) drawn, by me, sent to lab. First set of blood cultures drawn by me. aa5 15:35 Chest Single View XRAY In Process Unspecified. EDMS 15:55 Several unsuccessful attempts by lab, Salima Mishra RN, Carter Greene RN to collect aa5 second set of blood cultures. 16:05 Second set of blood cultures drawn by me. em 16:43 IV discontinued, intact, bleeding controlled, Pressure dressing applied, swelling noted aa5 to 22G to R hand. 16:45 Inserted saline lock: 20 gauge in right forearm, using aseptic technique. aa5 17:25 intact, bleeding controlled, No redness/swelling at site. Pressure dressing applied, aa5 20G to R FA came out while patient attempted to get out of bed. 18:01 René Raphael DO is Hospitalizing Provider. ma2 18:20 CT Abd/Pelvis - Without Contrast In Process Unspecified. EDMS 18:21 CT completed. Patient tolerated procedure well. Patient moved back from CT. mw3 19:02 Report given to MONIK Minaya and MONIK Garcia. aa5 20:22 No provider procedures requiring assistance completed. rv Administered Medications: 15:38 Drug: NS 0.9% (30 ml/kg) 30 ml/kg Route: IV; Rate: bolus; Site: right antecubital; em 20:24 Follow up: IV Status: Completed infusion; IV Intake: 3000ml rv 15:40 Drug: Acetaminophen 1000 mg Route: PO; em 19:42 Follow up: Response: No adverse reaction rv 16:15 Drug: Rocephin 1 grams Route: IV; Rate: calculated rate; Site: right antecubital; em 19:42 Follow up: IV Status: Completed infusion rv 18:02 Drug: TORadol 30 mg Route: IVP; Site: right antecubital; aa5 19:42 Follow up: Response: No adverse reaction rv Intake: 20:24 IV: 3000ml; Total: 3000ml. rv Outcome: 18:01 Decision to Hospitalize by Provider. ma2 20:23 Admitted to [facility] accompanied by tech, via wheelchair, room 431, with chart, Report rv called to DIANE RUGGIERO 20:23 Condition: good 20:23 Discharge instructions given to patient, family, Instructed on the need for admit. 20:24 Patient left the ED. rv Signatures: Dispatcher [employer] Carter Rivera, RN Christen Tan RN RN iw Calderon, Audri, RN RN aa5 Salima Mishra RN RN Shasta Ugalde MD MD nh2 Mary Cueva 3 Rei Barrios RN RN rv Corrections: (The following items were deleted from the chart) 16:22 15:26 Arm band placed on hb aa5 16:45 15:09 Initial Sepsis Screen: Does the patient meet any 2 criteria? Temp <36.0*C aa5 (96.8*F)) or > 38.3*C (100.9*F). Altered Mental Status. HR > 90 bpm. Yes Does the patient have a suspected source of infection? Yes: aa5 16:53 16:47 Temp 101.7F Oral; aa5 aa5 17:00 16:47 Pulse 83bpm; Resp 20bpm; Spontaneous; Pulse Ox 96% RA; Temp 101.7F Oral; aa5 aa5 18:33 18:25 Reassessment: Dr. Raphael at bedside speaking to family and patient. . aa5 aa5
--- NOTE | 2019-06-05 18:03 | EDPHYS ---
Physician Documentation [facility] Name: Sly Sutton Age: 88 yrs Sex: Male : 1930 Arrival Date: 06/05/2019 Time: 15:09 Bed 6 Private MD: ED Physician Shasta Ugalde HPI: 06/05 17:59 This 88 yrs old Black Male presents to ER via EMS with complaints of Altered Mental ma2 Status. 17:59 The patient presents with confusion. Onset: The symptoms/episode began/occurred ma2 gradually, 1 day(s) ago. Associated signs and symptoms: Pertinent positives: Pertinent negatives: agitation, blurred vision, diaphoresis, dizziness, headache. Current symptoms: In the emergency department the patient's symptoms are unchanged from the initial presentation. Historical: - Allergies: 15:09 No Known Allergies; aa5 - Home Meds: 15:09 amlodipine 5 mg tab 1 tab once daily [Active]; aspirin 81 mg Oral chew 1 tab once daily aa5 [Active]; cyanocobalamin (vitamin B-12) 500 mcg Oral tab daily [Active]; furosemide 20 mg Oral tab 1 tab once daily [Active]; isosorbide mononitrate 30 mg Oral Tb24 1 tab once daily [Active]; levothyroxine 50 mcg tab 1 tab once daily [Active]; lovastatin 20 mg Oral tab 1 tab once daily [Active]; melatonin 3 mg Oral tab nightly [Active]; Risperdal 0.25 mg Oral tab 1 tabs as needed [Active]; Risperdal 0.25 mg Oral tab 1 tabs nightly [Active]; Tylenol 325 mg Oral tab 2 tabs every 6 hours [Active]; Xarelto 15 mg Oral tab [Active]; - PMHx: 15:09 Dementia; DVT; Hyperlipidemia; Hypertension; UTI; Hypothyroidism; aa5 - Immunization history:: Adult Immunizations unknown. - Social history:: Patient/guardian denies using alcohol, street drugs, The patient lives with family, Smoking status: unknown. - Ebola Screening: : No symptoms or risks identified at this time. - Family history:: not pertinent. ROS: 17:59 Constitutional: Negative for fever, chills, and weight loss. ma2 17:59 Unable to obtain ROS due to altered mental status. Exam: 17:59 Eyes: Pupils equal round and reactive to light, extra-ocular motions intact. Lids and ma2 lashes normal. Conjunctiva and sclera are non-icteric and not injected. Cornea within normal limits. Periorbital areas with no swelling, redness, or edema. ENT: Nares patent. No nasal discharge, no septal abnormalities noted. Tympanic membranes are normal and external auditory canals are clear. Oropharynx with no redness, swelling, or masses, exudates, or evidence of obstruction, uvula midline. Mucous membranes moist. Chest/axilla: Normal chest wall appearance and motion. Nontender with no deformity. No lesions are appreciated. Cardiovascular: Regular rate and rhythm with a normal S1 and S2. No gallops, murmurs, or rubs. Normal PMI, no JVD. No pulse deficits. Respiratory: Lungs have equal breath sounds bilaterally, clear to auscultation and percussion. No rales, rhonchi or wheezes noted. No increased work of breathing, no retractions or nasal flaring. Abdomen/GI: Soft, non-tender, with normal bowel sounds. No distension or tympany. No guarding or rebound. No evidence of tenderness throughout. 17:59 MS/ Extremity: Pulses equal, no cyanosis. Neurovascular intact. Full, normal range of motion. Neuro: Awake and alert, GCS 15, oriented to person, place, time, and situation. Cranial nerves II-XII grossly intact. Motor strength 5/5 in all extremities. Sensory grossly intact. Cerebellar exam normal. Normal gait. 17:59 Constitutional: The patient appears awake, febrile. Vital Signs: 15:10 BP 180 / 95; Pulse 115; Resp 22 S; Temp 103.2(O); Pulse Ox 96% on R/A; aa5 15:29 Weight 100 kg; iw 15:30 BP 172 / 92; Pulse 117; Resp 20 S; Pulse Ox 97% on R/A; aa5 16:47 BP 142 / 73; Pulse 83; Resp 20 S; Temp 101.7(O); Pulse Ox 96% on R/A; aa5 17:20 BP 141 / 79; Pulse 85; Resp 16 S; Pulse Ox 97% on R/A; aa5 18:00 BP 139 / 79; Pulse 87; Resp 18 S; Temp 101.0(O); Pulse Ox 96% on R/A; aa5 19:41 BP 130 / 75; Pulse 82; Resp 16; Temp 99; Pulse Ox 99% ; rv 20:21 BP 165 / 81; Pulse 82; Resp 12; Pulse Ox 99% on R/A; rv MDM: 15:16 Patient medically screened. ma2 17:59 Differential Diagnosis: hypoglycemia, sepsis, UTI, volume depletion. Data reviewed: ma2 vital signs, nurses notes. Counseling: I had a detailed discussion with the patient and/or guardian regarding: the historical points, exam findings, and any diagnostic results supporting the discharge/admit diagnosis, the presence of at least one elevated blood pressure reading (>120/80) during this emergency department visit, the need for outpatient follow up. Response to treatment: the patient's symptoms have markedly improved after treatment. 06/05 15:13 Order name: Basic Metabolic Panel; Complete Time: 16:37 06/05 15:13 Order name: Blood Culture Adult (2) 06/05 15:13 Order name: CBC with Diff; Complete Time: 16:37 06/05 15:13 Order name: Ckmb; Complete Time: 16:37 06/05 15:13 Order name: CPK; Complete Time: 16:37 06/05 15:13 Order name: Lactate; Complete Time: 16:37 06/05 15:13 Order name: LFT's; Complete Time: 16:37 06/05 15:13 Order name: Lipase; Complete Time: 16:37 06/05 15:13 Order name: Procalcitonin; Complete Time: 16:37 06/05 15:13 Order name: Protime (+inr); Complete Time: 16:37 06/05 15:13 Order name: Ptt, Activated; Complete Time: 16:37 06/05 15:13 Order name: Troponin (emerg Dept Use Only); Complete Time: 16:37 06/05 15:13 Order name: Urine Microscopic Only 06/05 15:17 Order name: Flu; Complete Time: 17:48 [facility] 06/05 15:13 Order name: Chest Single View XRAY; Complete Time: 16:37 06/05 15:13 Order name: Accucheck; Complete Time: 15:28 06/05 15:13 Order name: Cardiac monitoring; Complete Time: 15: [facility] 06/05 15:13 Order name: EKG - Nurse/Tech; Complete Time: 15: 06/05 15:13 Order name: IV Saline Lock - Large Bore; Complete Time: 15: [facility] 06/05 15:13 Order name: Labs collected and sent; Complete Time: 15: [facility] 06/05 15:13 Order name: O2 Per Protocol; Complete Time: 15: [facility] 06/05 15:13 Order name: O2 Sat Monitoring; Complete Time: 15: [facility] 06/05 15:35 Order name: Glucose, Ancillary Testing; Complete Time: 16:37 [facility] 06/05 18:03 Order name: CT Abd/Pelvis - Without Contrast ma2 Administered Medications: 15:38 Drug: NS 0.9% (30 ml/kg) 30 ml/kg Route: IV; Rate: bolus; Site: right antecubital; em 20:24 Follow up: IV Status: Completed infusion; IV Intake: 3000ml rv 15:40 Drug: Acetaminophen 1000 mg Route: PO; em 19:42 Follow up: Response: No adverse reaction rv 16:15 Drug: Rocephin 1 grams Route: IV; Rate: calculated rate; Site: right antecubital; em 19:42 Follow up: IV Status: Completed infusion rv 18:02 Drug: TORadol 30 mg Route: IVP; Site: right antecubital; aa5 19:42 Follow up: Response: No adverse reaction rv Disposition: 06/05/19 18:01 Hospitalization ordered by René Raphael for Inpatient Admission. Preliminary diagnosis is Severe sepsis without septic shock. - Bed requested for Telemetry/MedSurg (Inpatient). - Status is Inpatient Admission. rv - Condition is Stable. - Problem is new. - Symptoms are unchanged. UTI on Admission? No Signatures: Dispatcher [employer] [facility] Afua Garcia RN RN mw Munoz, Edgar, RN RN em Williams, Irene, RN RN Regla Rowell RN RN aa5 Shasta Ugalde MD MD ma2 Rei Barrios RN RN rv Corrections: (The following items were deleted from the chart) 15:32 15:18 ACETAMINOPHEN+C.LAB.BRZ ordered. [facility] [place] 18:15 17:54 Straight Cath ordered. aa5 aa5 19:44 18:01 Hospitalization Ordered by René Raphael DO for Inpatient Admission. Preliminary mw diagnosis is Severe sepsis without septic shock. Bed requested for Telemetry/MedSurg (Inpatient). Status is Inpatient Admission. Condition is Stable. Problem is new. Symptoms are unchanged. UTI on Admission? No. ma2 20:24 19:44 06/05/2019 18:01 Hospitalization Ordered by René Raphael DO for Inpatient rv Admission. Preliminary diagnosis is Severe sepsis without septic shock. Bed requested for Telemetry/MedSurg (Inpatient). Status is Inpatient Admission. Condition is Stable. Problem is new. Symptoms are unchanged. UTI on Admission? No. mw
[2019-06-05] MEDS ORDERED: KETOROLAC 30 MG/ML INJ ONE (18:05)
--- NOTE | 2019-06-05 18:53 | RAD REPORT ---
EXAM DESCRIPTION: CT - Abdomen Pelvis Wo Contrast - 06/05/2019 6:20 pm CLINICAL HISTORY: ABD PAIN Septic, altered mental status COMPARISON: No comparisons TECHNIQUE: Axial [address] imaging of the abdomen and pelvis was performed without IV contrast. No IV contrast was given because of allergy, abnormal renal function, patient refusal or physician re quest. Oral contrast was given. All CT scans are performed using dose optimization technique as appropriate and may include automated exposure control or mA/KV adjustment according to patient size. FINDINGS: No suspicious findings in the lung bases. The liver, spleen and pancreas show no suspicious findings on non-contrast imaging. Gallbladder and b iliary tree are also without suspicious finding. No hydronephrosis or suspicious renal mass. Mild, symmetric perinephric stranding present. No signifi cant adrenal finding. Isodense renal masses and pyelonephritis cannot be excluded in the absence of I V contrast. No adrenal abnormalities. Urinary bladder wall is thickened for the amount of distention. Antiseptic patient, cystitis would be a consideration. No dilated bowel loops or bowel wall thickening. Moderately large stool volume distends the rectum. D iverticulosis is minimal. No acute GI process evident. No free air, free fluid or inflammatory strand ing. No hernia, mass or bulky lymphadenopathy. No suspicious bony findings. IMPRESSION: Thickening of the urinary bladder wall with no bladder stone seen. In a separate dictati on, cystitis would be a primary consideration. No hydronephrosis or acute finding. Isodense masses and pyelonephritis cannot be excluded. No acute GI process seen. Gallbladder, biliary tree and pancreas within normal limits for noncontrast imaging. Full assessment is limited is the absence of IV contrast.
--- NOTE | 2019-06-05 19:34 | P.HP ---
Certification for Inpatient Patient admitted to: Inpatient With expected LOS: >2 Midnights Patient will require the following post-hospital care: Other (Back to longterm) Practitioner: I am a practitioner with admitting privileges, knowledge of patient current condition, hospital course, and medical plan of care. Services: Services provided to patient in accordance with Admission requirements found in Title 42 Section 412.3 of the Code of Federal Regulations Patient History Date of Service: 06/05/19 Primary Care Provider: longterm physician Reason for admission: fever, confusion History of Present Illness: 88 yo AAM with history of recurrent UTI, BPH, HTN and severe alzheimers dementia presented to the ER for Fever and confusion. He was sent to the ER for fever and confusion. He has severe dementia but he was not acting his normal. Family was present at bedside. He has a history of recurrent UTI. He was last seen in the hospital for E. Coli ESBL and required Merrem for 2 weeks in November of 2018. He was last seen by Urology-Dr. Cortez in January. While in the ER he was evaluated for sepsis. WBC was 9.5, Procal-0.8, Lactate 1.6. NA-141, BUN-25, Creatinine 1.[address] scan did not show obstruction. ER had trouble collecting urine likely from dehydration. They attempted but not able to pass catheter. He has history of prostate issues. He was admitted for treatment. When I saw him he not appear septic. Allergies No Known Allergies Allergy (Verified 11/21/18 06:45) Home medications list reviewed: Yes Home Medications: Amlodipine [Norvasc*] 1 tab PO DAILY 11/21/18 Aspirin [Aspir-Low] 1 tab PO DAILY 11/21/18 Cyanocobalamin (Vitamin B-12) [B-12] 1 tab PO DAILY 11/21/18 Furosemide 1 tab PO DAILY 11/21/18 Isosorbide Mononitrate [Isosorbide Mononitrate ER] 1 tab PO DAILY 11/21/18 Levothyroxine Sodium 1 tab PO DAILY 11/21/18 Lovastatin 1 tab PO DAILY 11/21/18 Melatonin 1 tab PO BEDTIME 11/21/18 Risperidone [Risperdal] 1 tab PO PRN PRN 11/21/18 Rivaroxaban [Xarelto*] 1 tab PO DAILY 11/21/18 Meropenem [Merrem 1 GM/100 ML NS IVPB] 1 gm IV Q8HR #1 bag 11/24/18 - Past Medical/Surgical History Diabetic: No -: Severe Alzheimers dementia -: HTN -: Hypothyroidism -: Hyperlipidemia -: Hx of DVT on chronic anticoagulation -: Hx of BPH and prostate issues -: Hx of recurrent resistent UTI -: Prostate procedures Psychosocial/ Personal History: Lives in [place] since September of 2018 - Family History Family History: Reviewed- Non-Contributory - Social History Smoking Status: Never smoker CD- Drugs: No Caffeine use: No Place of Residence: Residential Review of Systems General: Fever, Chills, As per HPI Eyes: Unremarkable ENT: Unremarkable Respiratory: Unremarkable Cardiovascular: Unremarkable Gastrointestinal: Unremarkable Genitourinary: Dysuria, As per HPI Musculoskeletal: Unremarkable Integumentary: Unremarkable Neurological: Confusion, As per HPI Lymphatics: Unremarkable Physical Examination - Physical Exam General: Alert, Cooperative, Demented HEENT: Atraumatic, Normocephalic, Other (Dry mucous membranes) Neck: Supple Respiratory: Clear to auscultation bilaterally, Normal air movement Cardiovascular: Normal pulses, Regular rate/rhythm Gastrointestinal: Normal bowel sounds, Soft and benign, Non-distended, No ascites, No tenderness, No masses, No rebound, No guarding Musculoskeletal: No erythema, No tenderness, No warmth Integumentary: No tenderness/swelling, No erythema, No warmth, No cyanosis Neurological: Normal speech, Normal strength at 5/5 x4 extr, Normal tone, Dementia - Studies Laboratory Data (last 24 hrs) 06/05/19 15:22: PT 15.9 H, INR 1.36, APTT 35.9 06/05/19 15:22: WBC 9.5, Hgb 12.3 L, Hct 37.7 L, Plt Count 216 06/05/19 15:22: Sodium 141, Potassium 4.4, BUN 25 H, Creatinine 1.74 H, Glucose 92, Total Bilirubin 0.5, AST 21, ALT 41, Alkaline Phosphatase 123 H, Lipase 132 Microbiology Data (last 24 hrs): 06/05/19 16:55 Nasopharnyx Influenza Type A Antigen Screen - Final 06/05/19 16:55 Nasopharnyx Influenza Type B Antigen Screen - Final Assessment and Plan - Plan Impression: Recurrent UTI w history of E.coli ESBL BPH Acute renal injury likely dehydration HTN Severe Alzheimers dementia Hypothyroidism History of DVT on chronic anticoagulation Plan: Patient will be admitted for further evaluation and treatment. Will start IV fluids and IV Merrem. Doubt sepsis at this time. Will monitor closely. Obtain Blood and urine culture. No need for sam catheter as ER attempted. May need condom catheter. See Urology-Dr. Cortez. Will need to obtain and verify home meds. Will need to restart Norvasc, Levothyroxine, Xarelto, and NH meds. Will continue to reassess. Advance directives addressed. He is DNR. Monitor lab closely. Electrolyte protocol in place. Discharge Plan: Residential Plan to discharge in: 72 Hours - Advance Directives Does patient have a Living Will: Yes Does patient have a Durable POA for Healthcare: Yes - Code Status/Comfort Care Code Status Assessed: Yes (Patient is DNR) Time Spent Managing Pts Care (In Minutes): 55
[2019-06-05] MEDS ORDERED: ONDANSETRON 4 MG/2 ML VIAL IV PRN (20:45)
[2019-06-05 20:49] VITALS: BMI 32.4
[2019-06-05] MEDS ORDERED: Meropenem 1000 MG/VIAL IV SCH (21:00)
[2019-06-05] MEDS: NACHLORIDE 0.45% 1,000 ML IV SCH (22:29)
[2019-06-05] MEDS ORDERED: Meropenem 1,000 MG in NA CHLORIDE 0.9% 100 ML IV SCH (23:00)
[2019-06-06 00:21] LABS: Urine Appearance CLOUDY; Urine Bilirubin NEGATIVE (NEG); Urine Blood 3+ (NEG); Urine Color YELLOW; Urine Glucose NEGATIVE (NEG); Urine Protein NEGATIVE (NEG); Urine Specific Gravity 1.015 (1.005-1.030); Urine Urobilinogen 0.2 mg/dL (0.2-1.0); Urine pH 5.5 (5.0-7.0)
[2019-06-06 00:30] LABS: Urine Microscopic Reflex ORDER UMIC
[2019-06-06 00:58] LABS: Urine Bacteria <20 /HPF (NONE SEEN); Urine Culture Reflex Order REFLEXED
[2019-06-06] MEDS: ACETAMINOPHEN 500 MG TAB PO PRN ×2 (04:26→16:00)
[2019-06-06 05:10] LABS: Absolute Lymphocytes (CBC) 0.6 K/uL (0.7-4.9); Basophils % 0.4 % (0-1.3); Hematocrit 34.4 % (39.6-49.0); Lymphocytes % 7.2 % (15.3-44.8); MPV 8.7 fL (7.6-11.3); RBC Red Blood Cell Count 3.69 M/uL (4.33-5.43)
[2019-06-06 05:14] LABS: Magnesium 1.9 mg/dL (1.8-2.4); Potassium 4.1 mmol/L (3.5-5.1)
[2019-06-06] MEDS: NACHLORIDE 0.45% 1,000 ML IV SCH ×2 (08:32→16:01)
[2019-06-06] MEDS: AMLODIPINE 5 MG TAB PO SCH (08:32)
[2019-06-06] MEDS: Meropenem 1,000 MG in NA CHLORIDE 0.9% 100 ML IV SCH ×2 (08:32→21:42)
[2019-06-06] MEDS: FOLIC ACID 1 MG TABLET PO SCH (08:33)
--- NOTE | 2019-06-06 08:48 | EKG ---
Test Date: 2019-06-05 Test Time: 15:51:25 Executor Of Estate: ASHLEY MEASUREMENT RESULTS: Intervals: Rate: 108 VA: 174 QRSD: 136 QT: 362 QTc: 485 [place]: P: 82 VA: 174 QRS: -79 T: 70 INTERPRETIVE STATEMENTS: Sinus tachycardia Right bundle branch block Left axis Abnormal ECG Compared to ECG 11/20/2018 16:33:41 Atrial premature complex(es) no longer present Electronically Signed On 06-06-19 08:47:50 [employer]ST [employer] ASSISTANT [employer]AURANT MANAGER by Champ Camarillo
[2019-06-06] MEDS ORDERED: CYANOCOBALAMIN 1,000 MCG TAB PO SCH (09:00)
[2019-06-06] MEDS: CYANOCOBALAMIN 1,000 MCG TAB PO SCH (09:00)
[2019-06-06] MEDS: DOCUSATE NA 100 MG CAP PO SCH (09:06)
[2019-06-06] MEDS: ISOSORBIDE MONO SR 30 MG TAB PO SCH (09:06)
[2019-06-06] MEDS: SENOSIDES 8.6 MG TAB PO SCH (09:06)
[2019-06-06] MEDS: ASPIRIN EC 81 MG TAB PO SCH (09:06)
[2019-06-06] MEDS: MEMANTINE HCL 10 MG TABLET PO SCH ×2 (09:07→21:43)
[2019-06-06] MEDS: LEVOTHYROXINE SOD 0.05 MG TABLET PO SCH (09:09)
--- NOTE | 2019-06-06 12:04 | P.PN ---
Subjective Date of Service: 06/06/19 Primary Care Provider: [facility] Chief Complaint: fever, confusion Subjective: Doing well, Demented Physical Examination - Vital Signs Temperature: 99.0 F Blood Pressure: 172/79 Pulse: 87 Respirations: 18 Pulse Ox (%): 96 - Physical Exam General: Alert, In no apparent distress, Oriented x3, Cooperative HEENT: Atraumatic Neck: Supple Respiratory: Clear to auscultation bilaterally, Normal air movement Cardiovascular: Normal pulses, Regular rate/rhythm Gastrointestinal: Normal bowel sounds, Soft and benign, Non-distended Neurological: Normal speech, Normal strength at 5/5 x4 extr, Normal tone, Normal affect - Studies Laboratory Data (last 24 hrs) 06/05/19 15:22: PT 15.9 H, INR 1.36, APTT 35.9 06/05/19 15:22: WBC 9.5, Hgb 12.3 L, Hct 37.7 L, Plt Count 216 06/05/19 15:22: Sodium 141, Potassium 4.4, BUN 25 H, Creatinine 1.74 H, Glucose 92, Total Bilirubin 0.5, AST 21, ALT 41, Alkaline Phosphatase 123 H, Lipase 132 Microbiology Data (last 24 hrs): 06/05/19 16:05 Blood - Blood Anaerobic Blood Culture - Final 06/05/19 16:55 Nasopharnyx Influenza Type A Antigen Screen - Final 06/05/19 16:55 Nasopharnyx Influenza Type B Antigen Screen - Final Medications List Reviewed: Yes Assessment & Plan Discharge Plan: Home Plan to discharge in: 24 Hours Physician Review Additional Text: Impression: Recurrent UTI w history of E.coli ESBL BPH Acute renal injury likely dehydration HTN Severe Alzheimers dementia Hypothyroidism History of DVT on chronic anticoagulation Plan: Continue with IV fluids and IV Merrem. Restart home meds and adjust. See Urology -Dr. Cortez. Will need to obtain and verify home meds. Will need to restart Norvasc, Levothyroxine, Xarelto, and NH meds. Will continue to reassess. Advance directives addressed. He is DNR. Monitor lab closely. Electrolyte protocol in place. Anticipate improvement. Time Spent Managing Pts Care (In Minutes): 55
[2019-06-06] MEDS: RIVAROXABAN 15 MG TABLET PO SCH (16:01)
[2019-06-06] MEDS: ATORVASTATIN 10 MG TAB PO SCH (21:43)
[2019-06-07] MEDS: NACHLORIDE 0.45% 1,000 ML IV SCH ×4 (02:45→22:45)
[2019-06-07 05:11] LABS: Basophils % 0.4 % (0-1.3); Hematocrit 30.1 % (39.6-49.0); Lymphocytes % 10.8 % (15.3-44.8); MPV 8.9 fL (7.6-11.3); RBC Red Blood Cell Count 3.26 M/uL (4.33-5.43)
[2019-06-07 05:27] LABS: Magnesium 2.1 mg/dL (1.8-2.4); Potassium 3.9 mmol/L (3.5-5.1)
[2019-06-07] MEDS ORDERED: POTASSIUM CL SA 10 MEQ TAB PO ONE (05:41)
[2019-06-07] MEDS: LEVOTHYROXINE SOD 0.05 MG TABLET PO SCH (05:43)
[2019-06-07] MEDS: AMLODIPINE 5 MG TAB PO SCH (08:46)
[2019-06-07] MEDS: ASPIRIN EC 81 MG TAB PO SCH (08:46)
[2019-06-07] MEDS: Meropenem 1,000 MG in NA CHLORIDE 0.9% 100 ML IV SCH ×2 (08:46→21:10)
[2019-06-07] MEDS: CYANOCOBALAMIN 1,000 MCG TAB PO SCH (08:47)
[2019-06-07] MEDS: DOCUSATE NA 100 MG CAP PO SCH (08:47)
[2019-06-07] MEDS: SENOSIDES 8.6 MG TAB PO SCH (08:47)
[2019-06-07] MEDS: FOLIC ACID 1 MG TABLET PO SCH (08:48)
[2019-06-07] MEDS: ISOSORBIDE MONO SR 30 MG TAB PO SCH (08:48)
[2019-06-07] MEDS: MEMANTINE HCL 10 MG TABLET PO SCH ×2 (08:48→21:07)
--- NOTE | 2019-06-07 15:06 | P.PN ---
Subjective Date of Service: 06/07/19 Primary Care Provider: [facility] physician Chief Complaint: fever, confusion Subjective: Improving, Demented Physical Examination - Vital Signs Temperature: 98.4 F Blood Pressure: 132/73 Pulse: 71 Respirations: 18 Pulse Ox (%): 96 - Physical Exam General: Alert, Demented HEENT: Atraumatic Neck: Supple Respiratory: Clear to auscultation bilaterally, Normal air movement Cardiovascular: Normal pulses, Regular rate/rhythm - Studies Microbiology Data (last 24 hrs): 06/05/19 16:05 Blood - Blood Anaerobic Blood Culture - Final Medications List Reviewed: Yes Assessment & Plan Discharge Plan: Custodial Plan to discharge in: 24 Hours Physician Review Additional Text: Impression: Recurrent UTI w history of E.coli ESBL BPH Acute renal injury likely dehydration HTN Severe Alzheimers dementia Hypothyroidism History of DVT on chronic anticoagulation Plan: Continue with IV fluids and IV Merrem. Await urine culture results. Continue home medications. Will try to discuss with Urology-Dr. Cortez. Will need to obtain and verify home meds. Anticipate improvement over the next 24 hr. Possible discharge once culture results are obtained. Will discuss with family. Time Spent Managing Pts Care (In Minutes): 55
[2019-06-07] MEDS: RIVAROXABAN 15 MG TABLET PO SCH (16:06)
[2019-06-07 17:36] VITALS: O2SAT 95
[2019-06-07] MEDS: ATORVASTATIN 10 MG TAB PO SCH (21:06)
[2019-06-08] MEDS: NACHLORIDE 0.45% 1,000 ML IV SCH (04:00)
[2019-06-08 04:16] LABS: Absolute Lymphocytes (CBC) 0.9 K/uL (0.7-4.9); Basophils % 0.6 % (0-1.3); Hematocrit 30.1 % (39.6-49.0); Lymphocytes % 12.1 % (15.3-44.8); MPV 9.1 fL (7.6-11.3); RBC Red Blood Cell Count 3.23 M/uL (4.33-5.43)
[2019-06-08 04:28] LABS: Magnesium 2.3 mg/dL (1.8-2.4); Potassium 3.8 mmol/L (3.5-5.1)
[2019-06-08] MEDS ORDERED: POTASSIUM CL SA 10 MEQ TAB PO ONE (05:19)
[2019-06-08] MEDS: LEVOTHYROXINE SOD 0.05 MG TABLET PO SCH (05:47)
[2019-06-08] MEDS: ISOSORBIDE MONO SR 30 MG TAB PO SCH (08:35)
[2019-06-08] MEDS: MEMANTINE HCL 10 MG TABLET PO SCH (08:35)
[2019-06-08] MEDS: Meropenem 1,000 MG in NA CHLORIDE 0.9% 100 ML IV SCH (08:35)
[2019-06-08] MEDS: ASPIRIN EC 81 MG TAB PO SCH (08:35)
[2019-06-08] MEDS: SENOSIDES 8.6 MG TAB PO SCH ×2 (08:35→08:38)
[2019-06-08] MEDS: DOCUSATE NA 100 MG CAP PO SCH ×2 (08:35→08:39)
[2019-06-08] MEDS: CYANOCOBALAMIN 1,000 MCG TAB PO SCH (08:35)
[2019-06-08] MEDS: FOLIC ACID 1 MG TABLET PO SCH (08:36)
[2019-06-08] MEDS: AMLODIPINE 5 MG TAB PO SCH (08:36)
--- NOTE | 2019-06-08 09:40 | P.DS ---
Admission Date: 06/05/19 Discharge Date: 06/08/19 Primary Care Provider: long-term physician Disposition: TRANSFER TO CARE HOME Discharge Condition: GOOD Reason for Admission: fever, confusion Consultations: none Procedures: CT Ab/Pelvis: COMPARISON: No comparisons TECHNIQUE: Axial [address] imaging of the abdomen and pelvis was performed without IV contrast. No IV contrast was given because of allergy, abnormal renal function, patient refusal or physician request. Oral contrast was given. All CT scans are performed using dose optimization technique as appropriate and may include automated exposure control or mA/KV adjustment according to patient size. FINDINGS: No suspicious findings in the lung bases. The liver, spleen and pancreas show no suspicious findings on non-contrast imaging. Gallbladder and biliary tree are also without suspicious finding. No hydronephrosis or suspicious renal mass. Mild, symmetric perinephric stranding present. No significant adrenal finding. Isodense renal masses and pyelonephritis cannot be excluded in the absence of IV contrast. No adrenal abnormalities. Urinary bladder wall is thickened for the amount of distention. Antiseptic patient, cystitis would be a consideration. No dilated bowel loops or bowel wall thickening. Moderately large stool volume distends the rectum. Diverticulosis is minimal. No acute GI process evident. No free air, free fluid or inflammatory stranding. No hernia, mass or bulky lymphadenopathy. No suspicious bony findings. IMPRESSION: Thickening of the urinary bladder wall with no bladder stone seen. In a separate dictation, cystitis would be a primary consideration. No hydronephrosis or acute finding. Isodense masses and pyelonephritis cannot be excluded. No acute GI process seen. Gallbladder, biliary tree and pancreas within normal limits for noncontrast imaging. Full assessment is limited is the absence of IV contrast. Medical Problem List: Toxic encephalopathy related to Recurrent UTI , urine culture positive for E coli-ESBL Acute renal injury likely dehydration HTN Severe Alzheimers dementia Hypothyroidism History of DVT on chronic anticoagulation Anemia of chronic disease CAD Brief History of Present Illness: 88 yo AAM with history of recurrent UTI, BPH, HTN and severe alzheimers dementia presented to the ER for Fever and confusion. He was sent to the ER for fever and confusion. He has severe dementia but he was not acting his normal. Family was present at bedside. He has a history of recurrent UTI. He was last seen in the hospital for E. Coli ESBL and required Merrem for 2 weeks in [place] of 2019. He was last seen by Urology-Dr. Cortez in January. While in the ER he was evaluated for sepsis. WBC was 9.5, Procal-0.8, Lactate 1.6. NA-141, BUN-25, Creatinine 1.[address] scan did not show obstruction. ER had trouble collecting urine likely from dehydration. They attempted but not able to pass catheter. He has history of prostate issues. He was admitted for treatment. When I saw him he not appear septic. Hospital Course: Patient presented with toxic encephalopathy. This was related to recurrent UTI. Patient with prior history of E coli-ESBL. Patient was treated with IV Merrem. Urine culture was again positive for E coli-ESBL. Patient also had acute renal injury likely from dehydration. Patient received IV fluids with improvement of renal function. Renal function now back to baseline. Patient did well in the course of his stay. PICC line was placed for long-term IV antibiotic therapy. Arrangements for IV meropenem 1 g IV twice daily for 7 days will be arranged. Patient will continue with IV meropenem 1 g IV twice daily for 7 days at the longterm. Recommend to recheck urine culture after that time to monitor resolution. If negative PICC line and antibiotics can be discontinued. Patient does see urology as an outpatient. Will recommend follow up with urology in 1-2 weeks to follow up this hospitalization. Due to his dementia will need to make sure longterm is monitoring patient closely to assure stability of PICC line. Patient with hypertension. This has remained stable. Patient will continue with his current medication-Norvasc 5 mg daily. Patient with severe Alzheimer's dementia. This has remained stable. Patient will continue with his medication-Namenda 10 mg 1 pill twice daily. Patient with hypothyroidism. Patient will continue with his medication- levothyroxine 50 mcg daily. Patient with history of DVT currently on chronic anti coagulation therapy. At discharge he will continue with his medication-Xarelto 15 mg daily. Patient with history of CAD and hyperlipidemia. At discharge he will continue with isosorbide mononitrate ER 30 mg daily and lovastatin 20 mg daily. Patient previously taking Lasix 20 mg 1 pill twice daily. Due to his acute renal injury from dehydration will recommend to discontinue Lasix. Recommend to monitor weight daily. If his weight increases by more than 5 lb then longterm to consider restarting Lasix. Recommend to continue with a 1500 cc per day fluid restriction. Patient with anemia of chronic disease. This has remained stable. Patient may continue with folic acid 1 mg daily, vitamin-B 12 1 pill daily, and multi vitamin with iron. Recommend to recheck CBC in 2-4 weeks to monitor his progress. Vital Signs/Physical Exam: Temp Pulse Resp BP Pulse Ox 98.0 F 68 18 147/76 H 97 06/08/19 08:00 06/08/19 08:36 06/08/19 08:00 06/08/19 08:36 06/08/19 08:00 General: Alert, In no apparent distress, Oriented x3, Cooperative, Demented HEENT: Atraumatic Neck: Supple Respiratory: Clear to auscultation bilaterally, Normal air movement Cardiovascular: Normal pulses, Regular rate/rhythm Gastrointestinal: Normal bowel sounds, Soft and benign, Non-distended, No tenderness, No masses, No rebound, No guarding Musculoskeletal: No erythema, No tenderness, No warmth Neurological: Dementia Laboratory Data at Discharge: WBC 7.6 K/uL (4.3-10.9) D 06/08/19 03:50 Hgb 9.9 g/dL (13.6-17.9) L 06/08/19 03:50 Hct 30.1 % (39.6-49.0) L 06/08/19 03:50 Plt Count 159 K/uL (152-406) 06/08/19 03:50 PT 15.9 SECONDS (9.5-12.5) H 06/05/19 15:22 INR 1.36 06/05/19 15:22 APTT 35.9 SECONDS (24.3-36.9) 06/05/19 15:22 Sodium 141 mmol/L (136-145) 06/08/19 03:50 Potassium 3.8 mmol/L (3.5-5.1) 06/08/19 03:50 BUN 23 mg/dL (7-18) H 06/08/19 03:50 Creatinine 1.30 mg/dL (0.55-1.3) 06/08/19 03:50 Glucose 99 mg/dL (74-106) 06/08/19 03:50 Magnesium 2.3 mg/dL (1.8-2.4) 06/08/19 03:50 Total Bilirubin 0.5 mg/dL (0.2-1.0) 06/05/19 15:22 AST 21 U/L (15-37) 06/05/19 15:22 ALT 41 U/L (12-78) 06/05/19 15:22 Alkaline Phosphatase 123 U/L (45-117) H 06/05/19 15:22 Lipase 132 U/L (73-393) 06/05/19 15:22 Home Medications: Amlodipine [Norvasc*] 5 mg PO DAILY 11/21/18 Aspirin [Aspir-Low] 1 tab PO DAILY 11/21/18 Cyanocobalamin (Vitamin B-12) [B-12] 500 mcg PO DAILY 11/21/18 Isosorbide Mononitrate [Isosorbide Mononitrate ER] 1 tab PO DAILY 11/21/18 Levothyroxine Sodium 1 tab PO DAILY 11/21/18 Lovastatin 1 tab PO BEDTIME 11/21/18 Docusate [Colace Cap*] 100 mg PO DAILY 06/05/19 Memantine HCl [Namenda*] 10 mg PO BID 06/05/19 Rivaroxaban [Xarelto*] 15 mg PO DAILY 06/05/19 Sennosides [Senna] 8.6 mg PO DAILY 06/05/19 Folic Acid 1 mg PO DAILY #90 tablet 06/08/19 Multivitamin with Iron [Animal Shapes Plus Iron] 1 each PO DAILY #90 tab.chew New Medications: Folic Acid 1 mg PO DAILY #90 tablet Multivitamin with Iron [Animal Shapes Plus Iron] 1 each PO DAILY #90 tab.chew Patient Discharge Instructions: 1. Patient will return to the longterm with IV antibiotic in place. 2. Patient presented with toxic encephalopathy. This was related to recurrent UTI. Patient with prior history of E coli-ESBL. Patient was treated with IV Merrem. Urine culture was again positive for E coli -ESBL. Patient also had acute renal injury likely from dehydration. Patient received IV fluids with improvement of renal function. Renal function now back to baseline. Patient did well in the course of his stay. PICC line was placed for long-term IV antibiotic therapy. Arrangements for IV meropenem 1 g IV twice daily for 7 days will be arranged. Patient will continue with IV meropenem 1 g IV twice daily for 7 days at the longterm. Recommend to recheck urine culture after that time to monitor resolution. If negative PICC line and antibiotics can be discontinued. Patient does see urology as an outpatient. Will recommend follow up with urology in 1-2 weeks to follow up this hospitalization. Due to his dementia will need to make sure longterm is monitoring patient closely to assure stability of PICC line. 3. Patient with hypertension. This has remained stable. Patient will continue with his current medication-Norvasc 5 mg daily. 4. Patient with severe Alzheimer's dementia. This has remained stable. Patient will continue with his medication- Namenda 10 mg 1 pill twice daily. 5. Patient with hypothyroidism. Patient will continue with his medication-levothyroxine 50 mcg daily. 6. Patient with history of DVT currently on chronic anti coagulation therapy. At discharge he will continue with his medication-Xarelto 15 mg daily. 7. Patient with history of CAD and hyperlipidemia. At discharge he will continue with isosorbide mononitrate ER 30 mg daily and lovastatin 20 mg daily. Patient previously taking Lasix 20 mg 1 pill twice daily. Due to his acute renal injury from dehydration will recommend to discontinue Lasix. Recommend to monitor weight daily. If his weight increases by more than 5 lb then longterm to consider restarting Lasix. Recommend to continue with a 1500 cc per day fluid restriction. 8. Patient with anemia of chronic disease. This has remained stable. Patient may continue with folic acid 1 mg daily, vitamin-B 12 1 pill daily, and multi vitamin with iron. Recommend to recheck CBC in 2-4 weeks to monitor his progress. Diet: AHA Activity: Fall precautions Time spent managing pt's care (in minutes): 55
[2019-06-08] MEDS ORDERED: LIDOCAINE 1% MPF 5 ML VIAL ONE (14:24)
--- NOTE | 2019-06-08 15:20 | RAD REPORT ---
EXAM DESCRIPTION: RAD - Chest Single View - 06/08/2019 3:13 pm CLINICAL HISTORY: PICC line placement COMPARISON: June 05 FINDINGS: Portable chest was obtained following placement of a right upper extremity PICC line. The catheter tip is in the mid SVC.
[2019-06-08] MEDS: RIVAROXABAN 15 MG TABLET PO SCH (16:55)
[2019-06-08 17:40] VITALS: BP 148/77; TEMP 97.8
== END 2019-06-08 17:12 | DRG 689 ==
LOC: ER 15:08 → ERHOLD 19:21 → 4TH 20:19
PROVIDERS: ADMIT Family Medicine; ATTEND Family Medicine
DX: N39.0 Urinary tract infection, site not specified (principal); G92 Toxic encephalopathy; N17.9 Acute kidney failure, unspecified; Z16.12 Extended spectrum beta lactamase (ESBL) resistance; B96.20 Unspecified Escherichia coli [E. coli] as the cause of diseases classified elsewhere; N40.0 Benign prostatic hyperplasia without lower urinary tract symptoms; I10 Essential (primary) hypertension; G30.9 Alzheimer's disease, unspecified; F02.80 Dementia in other diseases classified elsewhere, unspecified severity, without behavioral disturbance, psychotic disturbance, mood disturbance, and anxiety; E03.9 Hypothyroidism, unspecified; E78.5 Hyperlipidemia, unspecified
CPT/HCPCS: 36415; 71045; 74176; 80048; 80076; 81003; 81015; 82550; 82553; 82947; 83605; 83690; 83735; 84145; 84484; 85025; 85610; 85730; 87040; 87077; 87086; 87088; 87186; 87804; 93005; 96365; 96366; 96375; 99285; J0696; J7030

== ENCOUNTER 2019-08-06 07:30 | Inpatient (IN) | payer OTHER ==
[2019-08-06] MEDS ORDERED: NA CHLORIDE 0.9% 2,000 ML ONE (09:02)
[2019-08-06 09:25] LABS: Absolute Lymphocytes (CBC) 0.7 K/uL (0.7-4.9); Basophils % 0.3 % (0-1.3); Hematocrit 37.5 % (39.6-49.0); MPV 8.9 fL (7.6-11.3); RBC Red Blood Cell Count 3.99 M/uL (4.33-5.43)
[2019-08-06 09:27] LABS: Protime INR 1.71
[2019-08-06 09:34] LABS: ALT/SGPT 16 U/L (12-78); AST/SGOT 14 U/L (15-37); Albumin 3.3 g/dL (3.4-5.0); Alkaline Phosphatase 102 U/L (45-117); Amylase Level 25 U/L (25-115); BUN Blood Urea Nitrogen 22 mg/dL (7-18); Bicarbonate 28 mmol/L (21-32); Bilirubin Direct 0.3 mg/dL (0-0.2); Bilirubin Total 1.1 mg/dL (0.2-1.0); CKMB Creatine Kinase MB < 1.0 ng/mL (0.3-3.6); Creatine Phosphokinase 104 U/L (39-308); Glucose Level 108 mg/dL (74-106); Lipase 58 U/L (73-393); Protein, Total 8.3 g/dL (6.4-8.2); Sodium Level 139 mmol/L (136-145); Troponin (Emerg Dept Use Only) 0.08 ng/mL (0.0-0.045)
--- NOTE | 2019-08-06 10:09 | RAD REPORT ---
EXAM DESCRIPTION: Abelardo Single View08/06/2019 9:47 am CLINICAL HISTORY: fever COMPARISON: May 2019 FINDINGS: The lungs appear clear of acute infiltrate. The heart is normal size IMPRESSION: No acute abnormalities displayed
[2019-08-06 10:26] LABS: Urine Bacteria >50 /HPF (NONE SEEN); Urine Culture Reflex Order NOT NEEDED; Urine RBC >50 /HPF (NONE SEEN)
[2019-08-06] MEDS ORDERED: CEFTRIAXONE/SWI 1gm 1 GM/10 ML SYR ONE (11:00)
--- NOTE | 2019-08-06 11:00 | EDPHYS ---
Physician Documentation [facility] Name: Sly Sutton Age: 88 yrs Sex: Male : 1930 Arrival Date: 08/06/2019 Time: 07:34 Bed 18 Private MD: ED Physician Benitez Arthur HPI: 08/05 08:49 This 88 yrs old Black Male presents to ER via EMS with complaints of Fever. kdr 08:49 The patient reports fever, that was measured at 102.4 degrees Fahrenheit. Onset: The kdr symptoms/episode began/occurred today. Modifying factors: there are no obvious modifying factors. Associated signs and symptoms: Pertinent positives: altered mental status,\E\ Pertinent negatives:. Severity of symptoms: At their worst the symptoms were moderate in the emergency department the symptoms are unchanged. The patient has not experienced similar symptoms in the past, It is unknown whether or not the patient has had similar symptoms in the past. It is unknown whether or not the patient has recently seen a physician. Historical: - Allergies: :34 No Known Allergies; rb1 - Home Meds: 07:34 amlodipine 5 mg tab 1 tab once daily [Active]; aspirin 81 mg Oral chew 1 tab once daily rb1 [Active]; cyanocobalamin (vitamin B-12) 500 mcg Oral tab daily [Active]; furosemide 20 mg Oral tab 1 tab once daily [Active]; isosorbide mononitrate 30 mg Oral Tb24 1 tab once daily [Active]; levothyroxine 50 mcg tab 1 tab once daily [Active]; lovastatin 20 mg Oral tab 1 tab once daily [Active]; melatonin 3 mg Oral tab nightly [Active]; Risperdal 0.25 mg Oral tab 1 tabs as needed [Active]; Risperdal 0.25 mg Oral tab 1 tabs nightly [Active]; Tylenol 325 mg Oral tab 2 tabs every 6 hours [Active]; Xarelto 15 mg Oral tab [Active]; - PMHx: 07:34 Dementia; DVT; Hyperlipidemia; Hypertension; Hypothyroidism; UTI; rb1 - Immunization history:: Adult Immunizations unknown. - Social history:: Smoking status: Patient/guardian denies using. ROS: 08:49 Constitutional: The patient is unable to give a history and the family is not present kdr 08:49 Unable to obtain ROS due to baseline dementia. Exam: 08:49 Constitutional: This is a well developed, well nourished patient who is awake, but kdr somnolent in no acute distress. Head/Face: Normocephalic, atraumatic. Eyes: Pupils equal round and reactive to light, extra-ocular motions intact. Lids and lashes normal. Conjunctiva and sclera are non-icteric and not injected. Cornea within normal limits. Periorbital areas with no swelling, redness, or edema. Neck: Trachea midline, no thyromegaly or masses palpated, and no cervical lymphadenopathy. Supple, full range of motion without nuchal rigidity, or vertebral point tenderness. No Meningismus. Chest/axilla: Normal chest wall appearance and motion. Nontender with no deformity. No lesions are appreciated. Cardiovascular: Regular rate and rhythm with a normal S1 and S2. No gallops, murmurs, or rubs. Normal PMI, no JVD. No pulse deficits. Respiratory: Lungs have equal breath sounds bilaterally, clear to auscultation and percussion. No rales, rhonchi or wheezes noted. No increased work of breathing, no retractions or nasal flaring. Abdomen/GI: Soft, non-tender, with normal bowel sounds. No distension or tympany. No guarding or rebound. No evidence of tenderness throughout. Back: No spinal tenderness. No costovertebral tenderness. Full range of motion. Skin: Warm, dry with normal turgor. Normal color with no rashes, no lesions, and no evidence of cellulitis. MS/ Extremity: Pulses equal, no cyanosis. Neurovascular intact. Full, normal range of motion. 08:49 Neuro: Orientation: Not oriented to person, place, time, situation, Motor: moves all fours, Gait: unable to assess. Vital Signs: 08:00 BP 133 / 89; Pulse 67; Resp 19; Temp 98.5(TE); Pulse Ox 99% on R/A; Weight 104.33 kg rb1 (R); Height 5 ft. 8 in. (172.72 cm); Pain 0/10; 09:00 BP 147 / 60; Pulse 68; Resp 18; Pulse Ox 97% on R/A; rb1 09:22 Weight 104.33 kg; jl7 09:40 BP 140 / 75; Pulse 71; Resp 19; Pulse Ox 95% on R/A; Pain 0/10; rb1 10:40 BP 176 / 83; Pulse 81; Resp 17; Pulse Ox 98% on R/A; rb1 11:40 BP 172 / 72; Pulse 81; Resp 18; Pulse Ox 99% ; rb1 12:30 BP 169 / 92; Pulse 80; Resp 17; Pulse Ox 98% on R/A; Pain 0/10; rb1 08:00 Body Mass Index 34.97 (104.33 kg, 172.72 cm) rb1 MDM: 10:59 Patient medically screened. kdr 11:06 Data reviewed: vital signs, nurses notes, lab test result(s), radiologic studies. kdr Counseling: I had a detailed discussion with the patient and/or guardian regarding: the historical points, exam findings, and any diagnostic results supporting the discharge/admit diagnosis, the presence of at least one elevated blood pressure reading (>120/80) during this emergency department visit, radiology results, the need for further work-up and treatment in the hospital. 08/05 08:30 Order name: Amylase, Serum; Complete Time: 10:05 kdr 08/05 08:30 Order name: Basic Metabolic Panel; Complete Time: 10:05 kdr 08/05 08:30 Order name: Blood Culture Adult (2) kdr 08/05 08:30 Order name: CBC with Diff; Complete Time: 10:05 kdr 08/05 08:30 Order name: Ckmb; Complete Time: 10:05 kdr 08/05 08:30 Order name: CPK; Complete Time: 10:05 kdr 08/05 08:30 Order name: Lactate; Complete Time: 10:05 kdr 08/05 08:30 Order name: LFT's; Complete Time: 10:05 kdr 08/05 08:30 Order name: Lipase; Complete Time: 10:05 kdr 08/05 08:30 Order name: Procalcitonin; Complete Time: 10:05 kdr 08/05 08:30 Order name: Protime (+inr); Complete Time: 10:05 kdr 08/05 08:30 Order name: Ptt, Activated; Complete Time: 10:05 kdr 08/05 08:30 Order name: Troponin (emerg Dept Use Only); Complete Time: 10:05 kdr 08/05 08:30 Order name: Urine Microscopic Only; Complete Time: 10:34 kdr 08/05 08:30 Order name: Chest Single View XRAY; Complete Time: 10:34 kdr 08/05 08:30 Order name: Cardiac monitoring; Complete Time: 10:22 kdr 08/05 08:30 Order name: EKG - Nurse/Tech; Complete Time: 10:22 kdr 08/05 08:30 Order name: IV Saline Lock - Large Bore; Complete Time: 09:29 kdr 08/05 08:30 Order name: Labs collected and sent; Complete Time: 09: kdr 08/05 08:30 Order name: O2 Per Protocol; Complete Time: 09: kdr 08/05 08:30 Order name: O2 Sat Monitoring; Complete Time: 09: kdr 08/05 08:30 Order name: Urine Dipstick-Ancillary (obtain specimen); Complete Time: 09: kdr 08/05 08:31 Order name: Urine Culture [facility] 08/05 08:55 Order name: Flu; Complete Time: 10:05 iw 08/05 09:30 Order name: Urine Dipstick--Ancillary (enter results); Complete Time: 11:24 eb 08/05 09:34 Order name: Misc. Lab Test iw Administered Medications: Discontinued: NS 0.9% (30 ml/kg) 30 ml/kg IV at bolus once; Sepsis Protocol 09:15 Drug: NS 0.9% (30 ml/kg) 30 ml/kg Route: IV; Rate: bolus; Site: right antecubital; rb1 11:08 Drug: Rocephin - (cefTRIAXone) 1 grams Route: IVPB; Infused Over: 30 mins; Site: right rb1 antecubital; 11:30 Follow up: Response: No adverse reaction rb1 11:30 Follow up: IV Status: Completed infusion rb1 Disposition: 08/06/19 10:59 Hospitalization ordered by René Raphael for Inpatient Admission. Preliminary diagnosis are Urinary tract infection, site not specified, Fever, unspecified, Altered mental status, unspecified. - Bed requested for Telemetry/MedSurg (Inpatient). - Status is Inpatient Admission. rb1 - Condition is Fair. - Problem is new. - Symptoms have improved. Signatures: Dispatcher [employer] EDMS Benitez Arthur MD MD kdr Sara Amaya, RN RN rb1 Veronica Mendoza Corrections: (The following items were deleted from the chart) 11:08 08:30 Accucheck ordered. kdr rb1 11:08 10:59 Hospitalization Ordered by René Raphael DO for Observation. Preliminary kdr diagnosis is Urinary tract infection, site not specified; Fever, unspecified; Altered mental status, unspecified. Bed requested for Telemetry/MedSurg (observation). Status is Observation. Condition is Fair. Problem is new. Symptoms have improved. kdr 12:27 11:08 08/06/2019 10:59 Hospitalization Ordered by René Raphael DO for Inpatient eb Admission. Preliminary diagnosis is Urinary tract infection, site not specified; Fever, unspecified; Altered mental status, unspecified. Bed requested for Telemetry/MedSurg (Inpatient). Status is Inpatient Admission. Condition is Fair. Problem is new. Symptoms have improved. kdr 13:20 12:27 08/06/2019 10:59 Hospitalization Ordered by René Raphael DO for Inpatient rb1 Admission. Preliminary diagnosis is Urinary tract infection, site not specified; Fever, unspecified; Altered mental status, unspecified. Bed requested for Telemetry/MedSurg (Inpatient). Status is Inpatient Admission. Condition is Fair. Problem is new. Symptoms have improved. eb
--- NOTE | 2019-08-06 11:00 | ER ---
Nurse's Notes [facility] [place] Name: Sly Sutton Age: 88 yrs Sex: Male : 1930 Arrival Date: 08/06/2019 Time: 07:34 Bed 18 Private MD: Diagnosis: Urinary tract infection, site not specified;Fever, unspecified;Altered mental status, unspecified Presentation: 08/05 07:34 Chief complaint: EMS states: Pt. has history of dementia, is from [address] Facility reports that the pt. has a fever of 102.4, rhonchi heard in the right upper lobe and diminished in the lower lobes. Denies travel. Facility administered tylenol at 0600 this morning and EMS administered Tylenol 1000 g at 0720. 20 G to the left hand with NS 1000 ml infusing.. Denies pain. O2 94% on RA. Coronavirus screen: Patient reports a subjective fever or greater than 100.4F, or cough, or shortness of breath, or difficulty breathing. Surgical mask placed on patient. Patient moved to private room, placed in contact and droplet isolation with eye protection until further assessment. Patient denies travel on a cruise ship or to a country the [facility] currently lists as an affected area. Ebola Screen: Patient negative for fever greater than or equal to 101.5 degrees Fahrenheit, and additional compatible Ebola Virus Disease symptoms. Risk Assessment: Do you want to hurt yourself or someone else? Patient reports no desire to harm self or others. 07:34 Method Of Arrival: EMS: [place] [id number] 07:34 Acuity: FIORELLA 3 [facility] 07:34 Initial Sepsis Screen: Does the patient meet any 2 criteria? No. Patient's initial [facility] sepsis screen is negative. Does the patient have a suspected source of infection? Yes: Other: fever. 07:34 Onset of symptoms was August 05, 2019. [facility] Triage Assessment: 07:34 General: Appears in no apparent distress. comfortable, Behavior is calm, cooperative, rb1 Reports fever for 12-24 hours, 102.4. Pain: Denies pain. Neuro: Level of Consciousness is awake, alert, obeys commands, Oriented to person, place, time, situation. Cardiovascular: Capillary refill < 3 seconds is brisk in bilateral fingers. Respiratory: Reports cough that is Airway is patent Respiratory effort is even, unlabored, Respiratory pattern is regular, symmetrical, Breath sounds are clear bilaterally. GI: incontinence. : incontinence. Derm: Skin is pink, warm \T\ dry. Historical: - Allergies: :34 No Known Allergies; rb1 - Home Meds: :34 amlodipine 5 mg tab 1 tab once daily [Active]; aspirin 81 mg Oral chew 1 tab once daily rb1 [Active]; cyanocobalamin (vitamin B-12) 500 mcg Oral tab daily [Active]; furosemide 20 mg Oral tab 1 tab once daily [Active]; isosorbide mononitrate 30 mg Oral Tb24 1 tab once daily [Active]; levothyroxine 50 mcg tab 1 tab once daily [Active]; lovastatin 20 mg Oral tab 1 tab once daily [Active]; melatonin 3 mg Oral tab nightly [Active]; Risperdal 0.25 mg Oral tab 1 tabs as needed [Active]; Risperdal 0.25 mg Oral tab 1 tabs nightly [Active]; Tylenol 325 mg Oral tab 2 tabs every 6 hours [Active]; Xarelto 15 mg Oral tab [Active]; - PMHx: 07:34 Dementia; DVT; Hyperlipidemia; Hypertension; Hypothyroidism; UTI; rb1 - Immunization history:: Adult Immunizations unknown. - Social history:: Smoking status: Patient/guardian denies using. Screenin:34 Abuse screen: Denies threats or abuse. Nutritional screening: No deficits noted. rb1 Tuberculosis screening: No symptoms or risk factors identified. Fall Risk No fall in past 12 months (0 pts). Secondary diagnosis (15 points) dementia, IV access (20 points). Ambulatory Aid- None/Bed Rest/Nurse Assist (0 pts). Gait- Normal/Bed Rest/Wheelchair (0 pts) Mental Status- Overestimates/Forgets Limitations (15 pts.). Total Garcia Fall Scale indicates High Risk Score (45 or more points). Fall prevention measures have been instituted. Side Rails Up X 2 Placed Close to Nursing Station 1:1 Attendant Assigned Frequent Obs/Assessments Occuring As available patient and family educated on Fall Prevention Program and Strategies. Assessment: 07:34 General: See triage assessment. rb1 08:30 Reassessment: Patient appears in no apparent distress at this time. No changes from rb1 previously documented assessment. 09:30 Reassessment: Patient appears in no apparent distress at this time. Patient and/or rb1 family updated on plan of care and expected duration. Pain level reassessed. Patient is alert, oriented x 3, equal unlabored respirations, skin warm/dry/pink. 10:30 Reassessment: Patient appears in no apparent distress at this time. No changes from rb1 previously documented assessment. 11:00 Reassessment: Patient appears in no apparent distress at this time. Patient and/or rb1 family updated on plan of care and expected duration. Pain level reassessed. Patient is alert, oriented x 3, equal unlabored respirations, skin warm/dry/pink. Pt. was repositioned with assistance. Patient denies pain at this time. 12:00 Reassessment: Patient appears in no apparent distress at this time. Pt. resting with rb1 eyes closed, respirations even, unlabored. 12:35 Reassessment: Tried to call report, was unable to give report at this time. I was told [facility] that MONIK Santiago will have to call me back. 12:48 Reassessment: Gave report to MONIK Santiago. Information from the [facility] was given. All [facility] questions asked and answered. 13:00 Reassessment: Patient appears in no apparent distress at this time. Patient and/or rb1 family updated on plan of care and expected duration. Pain level reassessed. Patient is alert, oriented x 3, equal unlabored respirations, skin warm/dry/pink. Vital Signs: 08:00 BP 133 / 89; Pulse 67; Resp 19; Temp 98.5(TE); Pulse Ox 99% on R/A; Weight 104.33 kg rb1 (R); Height 5 ft. 8 in. (172.72 cm); Pain 0/10; 09:00 BP 147 / 60; Pulse 68; Resp 18; Pulse Ox 97% on R/A; rb1 09:22 Weight 104.33 kg; jl7 09:40 BP 140 / 75; Pulse 71; Resp 19; Pulse Ox 95% on R/A; Pain 0/10; rb1 10:40 BP 176 / 83; Pulse 81; Resp 17; Pulse Ox 98% on R/A; rb1 11:40 BP 172 / 72; Pulse 81; Resp 18; Pulse Ox 99% ; rb1 12:30 BP 169 / 92; Pulse 80; Resp 17; Pulse Ox 98% on R/A; Pain 0/10; rb1 08:00 Body Mass Index 34.97 (104.33 kg, 172.72 cm) rb1 ED Course: 07:34 Patient arrived in ED. iw 07:34 Patient has correct armband on for positive identification. Bed in low position. Call rb1 light in reach. Side rails up X2. gambling monitor on. Pulse ox on. NIBP on. given a sheet to cover with due to fever. 07:35 Benitez Arthur MD is Attending Physician. kdr 08:00 Arm band placed on right wrist. rb1 08:08 Sara Amaya, RN is Primary Nurse. rb1 08:13 Triage completed. rb1 09:00 Inserted saline lock: 22 gauge in right antecubital area, using aseptic technique. rb1 Blood collected. 09:27 Flu Sent. rb1 09:48 Chest Single View XRAY In Process Unspecified. EDMS 10:54 Health Dept notified COVID test sent to lab/ PUI# [id number]. lab notified. eb 10:58 René Raphael DO is Hospitalizing Provider. kdr 13:17 No provider procedures requiring assistance completed. Patient admitted, IV remains in rb1 place. Administered Medications: Discontinued: NS 0.9% (30 ml/kg) 30 ml/kg IV at bolus once; Sepsis Protocol 09:15 Drug: NS 0.9% (30 ml/kg) 30 ml/kg Route: IV; Rate: bolus; Site: right antecubital; rb1 11:08 Drug: Rocephin - (cefTRIAXone) 1 grams Route: IVPB; Infused Over: 30 mins; Site: right rb1 antecubital; 11:30 Follow up: Response: No adverse reaction rb1 11:30 Follow up: IV Status: Completed infusion rb1 Outcome: 10:59 Decision to Hospitalize by Provider. kdr 13:17 Admitted to Tele accompanied by tech, via stretcher, room 416, with chart, Report rb1 called to MONIK santiago 13:17 Condition: stable 13:17 Instructed on the need for admit. 13:20 Patient left the ED. rb1 Signatures: Dispatcher [employer] EDMS Benitez Arthur MD MD kdr Christen Mijares RN RN iw Sara Amaya, RN RN rb1 Young Srivastava RN RN jl7 Veronica Mendoza
[2019-08-06 11:18] LABS: Urine Blood 2+ (NEG); Urine Glucose NEGATIVE (NEG); Urine Protein 2+ (NEG)
--- NOTE | 2019-08-06 12:35 | P.HP ---
Certification for Inpatient Patient admitted to: Inpatient With expected LOS: >2 Midnights Patient will require the following post-hospital care: Other (Back to Senior Living) Practitioner: I am a practitioner with admitting privileges, knowledge of patient current condition, hospital course, and medical plan of care. 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 Patient was hospitalized in May for UTI/sepsis/E coli-ESBL. Today he was sent from the [facility] due to fever. There was some question of altered mental status different from his baseline. Patient has severe Alzheimer's dementia. There was no indication of cough, fever, nausea, vomiting. No indication of any distress. Patient was evaluated in the emergency room. Vital signs stable. Influenza test negative. Chest x-ray unremarkable. White count 7.8, hemoglobin 12.1. Sodium 139, potassium 4.2. BUN of 22, creatinine 1.89 with a GFR 41. Troponin 0.08. Pro calcitonin elevated at 0.87. Lactic acid negative. Due to his high risk factors patient was evaluated for coronavirus. Patient was evaluated per health department evaluation. He may criteria to send out lab for coronavirus. Patient admitted for further evaluation and treatment. When I saw the patient ER, he appeared stable. Patient was here dementia. Not able to get any history from him. Patient did not appear septic. 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 Allergies No Known Allergies Allergy (Verified 11/21/18 06:45) Home medications list reviewed: Yes Home Medications: Amlodipine [Norvasc*] 5 mg PO DAILY 11/21/18 Aspirin [Aspir-Low] 1 tab PO DAILY 11/21/18 Cyanocobalamin (Vitamin B-12) [B-12] 500 mcg PO DAILY 11/21/18 Isosorbide Mononitrate [Isosorbide Mononitrate ER] 1 tab PO DAILY 11/21/18 Levothyroxine Sodium 1 tab PO DAILY 11/21/18 Lovastatin 1 tab PO BEDTIME 11/21/18 Docusate [Colace Cap*] 100 mg PO DAILY 06/05/19 Memantine HCl [Namenda*] 10 mg PO BID 06/05/19 Rivaroxaban [Xarelto*] 15 mg PO DAILY 06/05/19 Sennosides [Senna] 8.6 mg PO DAILY 06/05/19 Folic Acid 1 mg PO DAILY #90 tablet 06/08/19 Meropenem [Merrem] 1 gm IV BID 7 Days #14 vial 06/08/19 Multivitamin with Iron [Animal Shapes Plus Iron] 1 each PO DAILY #90 tab.chew - Past Medical/Surgical History Diabetic: No -: Severe Alzheimers dementia -: HTN -: Hypothyroidism -: Hyperlipidemia -: Hx of DVT on chronic anticoagulation -: Hx of BPH and prostate issues -: Hx of recurrent resistent UTI -: Prostate procedures Psychosocial/ Personal History: Lives in [place] since September of 2018 - Family History Father -: Heart disease - Social History Smoking Status: Unknown if ever smoked Alcohol use: No CD- Drugs: No Caffeine use: Yes Place of Residence: [facility] Living Review of Systems is unable to be obtained General: Fever Physical Examination - Physical Exam General: Alert, In no apparent distress, Demented (Severe dementia) HEENT: Atraumatic, Mucous membr. moist/pink Neck: Supple Respiratory: Clear to auscultation bilaterally, Normal air movement Cardiovascular: Normal pulses, Regular rate/rhythm Gastrointestinal: Normal bowel sounds, Soft and benign, Non-distended, No ascites, No tenderness, No masses, No rebound, No guarding Musculoskeletal: No erythema, No tenderness, No warmth Integumentary: No tenderness/swelling, No erythema, No warmth, No cyanosis Neurological: Normal speech, Normal strength at 5/5 x4 extr, Normal tone, Dementia (Severe dementia) - Studies Laboratory Data (last 24 hrs) 08/06/19 09:00: PT 20.0 H, INR 1.71, APTT 37.7 H 08/06/19 09:00: WBC 7.8, Hgb 12.1 L, Hct 37.5 L, Plt Count 177 08/06/19 09:00: Sodium 139, Potassium 4.0, BUN 22 H, Creatinine 1.89 H, Glucose 108 H, Total Bilirubin 1.1 H, AST 14 L, ALT 16, Alkaline Phosphatase 102, Amylase 25, Lipase 58 L Microbiology Data (last 24 hrs): 08/06/19 09:05 Nasopharnyx Influenza Type A Antigen Screen - Final 08/06/19 09:05 Nasopharnyx Influenza Type B Antigen Screen - Final Assessment and Plan - Plan Impression: Toxic encephalopathy secondary to recurrent UTI with history of E coli-ESBL Acute renal injury likely dehydration Hypertension Hypothyroidism Severe Alzheimer's dementia History DVT on chronic anti coagulation therapy CAD Hyperlipidemia Anemia of chronic anemia Plan: Toxic encephalopathy secondary to recurrent UTI with history of E coli-ESBL: Patient be admitted for further evaluation and treatment. Patient does not appear septic. Will start IV meropenem since the patient was recently evaluated for E coli-ESBL. Pharmacy to monitor and adjust appropriately. Patient had slight elevation of troponin this is likely from demand. No need for cardiac evaluation at this time. Spoke with medical power of collections attorney. She reports patient has seen urology as an outpatient. 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 He is not to have any Alford catheter placed due to his scarring. I will address this with the nurse. The patient met criteria for high risk for evaluation for ellsworth virus. Therefore he will be in isolation. PPE and respiratory/droplet isolation will be enforced. During my examination I performed PPE. Will start low-dose IV fluids. Will continue to monitor and assess. Blood and urine cultures obtained. I did speak to the medical power of collections attorney concerning advanced directives. Patient is do not resuscitate. Anticipate improvement over the next 48-72 hr. Patient may require PICC line with IV meropenem to continue at fdc. Acute renal injury likely dehydration: Will provide low-dose IV fluids. Will monitor closely. Electrolyte protocol in place. Hypertension: Restart fdc medication. Will monitor adjust appropriately. Hypothyroidism: Will obtain and restart fdc medication. Severe Alzheimer's dementia: Will obtain and restart fdc medication. History DVT on chronic anti coagulation therapy: Obtain and restart fdc medication. CAD: Obtain and restart fdc medication. Hyperlipidemia: Obtain and restart fdc medication. Anemia of chronic anemia: Obtain and restart fdc medication. Discharge Plan: Senior Living Plan to discharge in: 72 Hours - Advance Directives Does patient have a Living Will: Yes Does patient have a Durable POA for Healthcare: No - Code Status/Comfort Care Code Status Assessed: Yes (Patient is do not resuscitate) Code Status: Do Not Attempt Resuscitat Time Spent Managing Pts Care (In Minutes): 55
[2019-08-06] MEDS ORDERED: NA CHLORIDE 0.9% 1,000 ML IV SCH (13:15)
[2019-08-06] MEDS ORDERED: ONDANSETRON 4 MG/2 ML VIAL IV PRN (13:15)
[2019-08-06] MEDS: HYDRALAZINE HCL 20 MG/ML VIAL IV PRN (13:50)
[2019-08-06 14:39] VITALS: BMI 34.9
[2019-08-06] MEDS: RIVAROXABAN 15 MG TABLET PO SCH (16:54)
[2019-08-06] MEDS ORDERED: ACETAMINOPHEN 650MG/RECT SUPP PR PRN (20:24)
[2019-08-06] MEDS ORDERED: Meropenem 1000 MG/VIAL IV SCH (21:00)
[2019-08-06] MEDS: Meropenem 1,000 MG in NA CHLORIDE 0.9% 100 ML IV SCH (21:14)
[2019-08-06] MEDS: ATORVASTATIN 10 MG TAB PO SCH (21:15)
[2019-08-06] MEDS: MEMANTINE HCL 10 MG TABLET PO SCH (21:15)
[2019-08-07] MEDS: HYDRALAZINE HCL 20 MG/ML VIAL IV PRN (04:53)
[2019-08-07 06:07] LABS: Basophils % 0.5 % (0-1.3); Hematocrit 39.1 % (39.6-49.0); Lymphocytes % 11.3 % (15.3-44.8); MPV 9.6 fL (7.6-11.3); RBC Red Blood Cell Count 4.22 M/uL (4.33-5.43)
[2019-08-07 06:14] LABS: Potassium 4.1 mmol/L (3.5-5.1)
[2019-08-07] MEDS: ACETAMINOPHEN 500 MG TAB PO PRN ×2 (08:33→20:27)
[2019-08-07] MEDS: AMLODIPINE 5 MG TAB PO SCH (08:34)
[2019-08-07] MEDS: CYANOCOBALAMIN 1,000 MCG TAB PO SCH (08:34)
[2019-08-07] MEDS: MEMANTINE HCL 10 MG TABLET PO SCH ×2 (08:34→20:28)
[2019-08-07] MEDS: Meropenem 1,000 MG in NA CHLORIDE 0.9% 100 ML IV SCH ×2 (08:34→20:28)
[2019-08-07] MEDS: ASPIRIN EC 81 MG TAB PO SCH (08:34)
[2019-08-07] MEDS: MULTIVITAMIN TAB PO SCH (08:35)
[2019-08-07] MEDS: ISOSORBIDE MONO SR 30 MG TAB PO SCH (08:35)
[2019-08-07] MEDS: FOLIC ACID 1 MG TABLET PO SCH (08:35)
[2019-08-07] MEDS: FUROSEMIDE 40 MG TABLET PO SCH (08:35)
[2019-08-07] MEDS: NA CHLORIDE 0.9% 1,000 ML IV SCH ×2 (08:37→20:27)
[2019-08-07] MEDS ORDERED: ENOXAPARIN 40 MG/0.4 ML SQ SCH (09:00)
--- NOTE | 2019-08-07 09:00 | EKG ---
Test Date: 2019-08-06 Test Time: 09:47:49 Degreasing Solution Reclaimer: WILLIAN MEASUREMENT RESULTS: Intervals: Rate: 77 MI: 200 QRSD: 146 QT: 410 QTc: 463 [place]: P: 80 MI: 200 QRS: -74 T: 10 INTERPRETIVE STATEMENTS: Normal sinus rhythm Right bundle branch block Left anterior fascicular block Bifascicular block Minimal voltage criteria for LVH, may be normal variant Septal infarct, age undetermined Abnormal ECG Compared to ECG 06/05/2019 15:51:25 Left anterior fascicular block now present Bifascicular block now present Left ventricular hypertrophy now present Myocardial infarct finding now present Sinus tachycardia no longer present Electronically Signed On 08-07-19 08:57:51 CDT by Dominic Garcia
[2019-08-07 09:36] LABS: Platelet Estimate ADEQ; Urine White Blood Cell Casts OK
[2019-08-07 09:37] LABS: Blood Morphology Comment NOT SEEN (NOT SEEN)
--- NOTE | 2019-08-07 12:49 | P.PN ---
Subjective Date of Service: 08/07/19 Primary Care Provider: intermediate patient Chief Complaint: Fever Subjective: Doing well, Demented, Other (Patient appears improved. PPE performed.) Physical Examination - Vital Signs Temperature: 98.8 F Blood Pressure: 98/56 Pulse: 83 Respirations: 18 Pulse Ox (%): 95 - Physical Exam General: Alert, In no apparent distress, Demented HEENT: Atraumatic Neck: Supple Respiratory: Clear to auscultation bilaterally, Normal air movement Cardiovascular: Normal pulses, Regular rate/rhythm Gastrointestinal: Normal bowel sounds, Soft and benign, Non-distended Integumentary: No warmth, No cyanosis, Tenderness/swelling (1 to 2+ pitting edema to the lower extremity) Neurological: Normal speech, Normal strength at 5/5 x4 extr, Normal tone, Dementia - Studies Microbiology Data (last 24 hrs): 08/06/19 09:05 Nasopharnyx Influenza Type A Antigen Screen - Final 08/06/19 09:05 Nasopharnyx Influenza Type B Antigen Screen - Final Medications List Reviewed: Yes Assessment & Plan Discharge Plan: Assisted Plan to discharge in: 48 Hours Physician Review Additional Text: Impression: Toxic encephalopathy secondary to recurrent UTI with history of E coli-ESBL Acute renal injury likely dehydration Hypertension Hypothyroidism Severe Alzheimer's dementia History DVT on chronic anti coagulation therapy CAD Hyperlipidemia Anemia of chronic anemia Plan: Toxic encephalopathy secondary to recurrent UTI with history of E coli-ESBL: Patient appears to be at his baseline level. Continue IV meropenem. Continue monitor closely. Awaiting Covid 19 viral results back. If negative will discontinue isolation. Continue IV fluids. Will monitor closely. Continue long-term medication. During my exam I performed PPE. Continue to monitor closely. Will discuss with medical power of bouffant curtain machine tender. Anticipate patient will likely have UTI with ESBL. If so patient will require PICC line and IV antibiotic therapy for at least 7 days. Blood culture pending. Anticipate improvement over the next 48 hr. I will turn the service over to the hospital team tomorrow. I will go over the plan of care with him. Acute renal injury likely dehydration: Continue IV fluids. Will monitor closely. Electrolyte protocol in place. Hypertension: Continue long-term medication. Hold if blood pressure systolic less than 110. Will monitor adjust appropriately. Hypothyroidism: Continue long-term medication. Severe Alzheimer's dementia: Continue long-term medication. History DVT on chronic anti coagulation therapy: Continue long-term medication. CAD: Overall stable. No intervention required at this time.. Hyperlipidemia: Continue long-term medication. Anemia of chronic anemia: Continue long-term medication. Time Spent Managing Pts Care (In Minutes): 55
[2019-08-07] MEDS: RIVAROXABAN 15 MG TABLET PO SCH (16:50)
[2019-08-07] MEDS: ATORVASTATIN 10 MG TAB PO SCH (20:28)
[2019-08-07] MEDS ORDERED: ATORVASTATIN 10 MG TAB PO SCH (21:00)
[2019-08-07] MEDS ORDERED: HOME MED 1 EA UNK (Lovastatin [Lovastatin] 1 TAB) PO SCH (21:00)
[2019-08-08 06:25] LABS: Magnesium 2.2 mg/dL (1.8-2.4); Potassium 4.1 mmol/L (3.5-5.1)
[2019-08-08 06:29] LABS: Basophils % 0.4 % (0-1.3); Hematocrit 34.8 % (39.6-49.0); Lymphocytes % 11.3 % (15.3-44.8); MPV 9.2 fL (7.6-11.3); RBC Red Blood Cell Count 3.72 M/uL (4.33-5.43)
[2019-08-08] MEDS: Meropenem 1,000 MG in NA CHLORIDE 0.9% 100 ML IV SCH ×2 (08:00→21:36)
[2019-08-08] MEDS: MULTIVITAMIN TAB PO SCH (08:01)
[2019-08-08] MEDS: MEMANTINE HCL 10 MG TABLET PO SCH ×2 (08:01→21:36)
[2019-08-08] MEDS: SENOSIDES 8.6 MG TAB PO SCH (08:01)
[2019-08-08] MEDS: DOCUSATE NA 100 MG CAP PO SCH (08:01)
[2019-08-08] MEDS: FOLIC ACID 1 MG TABLET PO SCH (08:01)
[2019-08-08] MEDS: ASPIRIN EC 81 MG TAB PO SCH (08:01)
[2019-08-08] MEDS: CYANOCOBALAMIN 1,000 MCG TAB PO SCH ×2 (08:01→08:02)
[2019-08-08] MEDS: ISOSORBIDE MONO SR 30 MG TAB PO SCH (08:03)
[2019-08-08] MEDS: FUROSEMIDE 40 MG TABLET PO SCH (08:25)
[2019-08-08] MEDS: AMLODIPINE 5 MG TAB PO SCH (08:25)
[2019-08-08] MEDS: ACETAMINOPHEN 500 MG TAB PO PRN (08:31)
[2019-08-08] MEDS: LEVOTHYROXINE SOD 0.05 MG TABLET PO SCH (08:31)
[2019-08-08] MEDS ORDERED: MULTIVITAMIN WITH IRON PO SCH (09:00)
[2019-08-08] MEDS: NA CHLORIDE 0.9% 1,000 ML IV SCH (11:50)
--- NOTE | 2019-08-08 12:34 | P.PN ---
Subjective Date of Service: 08/08/19 Primary Care Provider: [facility] patient Chief Complaint: Fever Patient continued to have low-grade fever. His urine culture is growing years ESBL E. coli. He is a poor historian. Physical Examination - Vital Signs Temperature: 100.6 F Blood Pressure: 155/69 Pulse: 88 Respirations: 12 Pulse Ox (%): 95 - Physical Exam General: In no apparent distress, Confused, Other (Awake.) HEENT: Mucous membr. moist/pink, Sclerae nonicteric Neck: Supple Respiratory: Clear to auscultation bilaterally, Normal air movement Cardiovascular: No edema, Regular rate/rhythm, Normal S1 S2 Gastrointestinal: Normal bowel sounds, Soft and benign, Non-distended, No tenderness Musculoskeletal: No swelling, No erythema Integumentary: Other (Sclerotic rash on the dorsum and ankle area of left foot.) Neurological: Other (Nonfocal.) - Studies Microbiology Data (last 24 hrs): 08/06/19 09:17 Catheterized Urine [place] Count - Final >100,000 CFU/ML. 08/06/19 09:17 Catheterized Urine - Final Escherichia Coli Esbl Medications List Reviewed: Yes Assessment And Plan - Current Problems (Diagnosis) (1) Metabolic encephalopathy Current Visit: Yes Status: Acute (2) Infection due to ESBL-producing Escherichia coli Current Visit: Yes Status: Acute (3) UTI (urinary tract infection) Current Visit: Yes Status: Acute (4) Alzheimer's dementia Current Visit: Yes Status: Acute (5) History of DVT (deep vein thrombosis) Current Visit: Yes Status: Acute (6) Acute worsening of stage 3 chronic kidney disease Current Visit: Yes Status: Acute - Plan IV hydration. Stop Lasix Continue IV meropenem. Anticoagulation with Xarelto Blood cultures have yielded no growth. Place PICC line for outpatient IV antibiotics Supportive measures. Diet as tolerated. Patient is been screened for Covid 19 given fever at the nursing. He is DNR.
[2019-08-08] MEDS: RIVAROXABAN 15 MG TABLET PO SCH (16:59)
[2019-08-08] MEDS: ATORVASTATIN 10 MG TAB PO SCH (21:36)
[2019-08-09 04:47] LABS: Absolute Lymphocytes (CBC) 1.1 K/uL (0.7-4.9); Basophils % 0.6 % (0-1.3); Hematocrit 30.4 % (39.6-49.0); Lymphocytes % 15.8 % (15.3-44.8); MPV 9.3 fL (7.6-11.3); RBC Red Blood Cell Count 3.26 M/uL (4.33-5.43)
[2019-08-09 04:56] LABS: Potassium 3.4 mmol/L (3.5-5.1)
[2019-08-09] MEDS: LEVOTHYROXINE SOD 0.05 MG TABLET PO SCH (05:00)
[2019-08-09] MEDS: ACETAMINOPHEN 500 MG TAB PO PRN (05:00)
[2019-08-09] MEDS ORDERED: POTASSIUM 25 MEQ EFFERV TAB PO ONE (05:33)
[2019-08-09] MEDS: NA CHLORIDE 0.9% 1,000 ML IV SCH (06:32)
[2019-08-09] MEDS ORDERED: SODIUM CHLORIDE 0.9% 10ML INJ IV PRN ×2 (08:00)
[2019-08-09] MEDS: ASPIRIN EC 81 MG TAB PO SCH (09:38)
[2019-08-09] MEDS: MULTIVITAMIN TAB PO SCH (09:38)
[2019-08-09] MEDS: ISOSORBIDE MONO SR 30 MG TAB PO SCH (09:38)
[2019-08-09] MEDS: MEMANTINE HCL 10 MG TABLET PO SCH ×2 (09:39→22:13)
[2019-08-09] MEDS: AMLODIPINE 5 MG TAB PO SCH (09:39)
[2019-08-09] MEDS: CYANOCOBALAMIN 1,000 MCG TAB PO SCH (09:39)
[2019-08-09] MEDS: FOLIC ACID 1 MG TABLET PO SCH (09:39)
[2019-08-09] MEDS: SENOSIDES 8.6 MG TAB PO SCH (09:40)
[2019-08-09] MEDS: SODIUM CHLORIDE 0.9% 10ML INJ IV SCH ×2 (09:40→21:00)
[2019-08-09] MEDS: DOCUSATE NA 100 MG CAP PO SCH (09:40)
[2019-08-09] MEDS: Meropenem 1,000 MG in NA CHLORIDE 0.9% 100 ML IV SCH ×2 (09:44→22:33)
--- NOTE | 2019-08-09 11:11 | RAD REPORT ---
EXAM DESCRIPTION: RAD - Chest Single View - 08/09/2019 12:45 am CLINICAL HISTORY: PICC placement TECHNIQUE: Single frontal view of the chest is submitted. COMPARISON: None available for comparison FINDINGS: Heart: The cardiothoracic silhouette is mildly enlarged, in part accentuated by portable t echnique. Lungs: No focal consolidation. Mediastinum: Thoracic aortic atherosclerosis. Pleura: No appreciable effusion. No pneumothorax. Bones: Multilevel spondylosis. No acute fracture. Upper abdomen: Unremarkable Other: Right upper extremity PICC in place. The tip projects over the proximal to mid superior vena c melody. IMPRESSION: Right upper extremity PICC tip projects over the proximal to mid superior vena cava. Electronically signed by: Nataliia Perera MD 08/09/2019 12:23 AM CDT Due to temporary technical issues with the PACS/Fluency reporting system, reports are being signed by the in house radiologist as a courtesy to ensure prompt reporting. The interpreting radiologist is f ully responsible for the content of the report.
--- NOTE | 2019-08-09 13:54 | P.PN ---
Subjective Date of Service: 08/09/19 Primary Care Provider: [facility] patient Chief Complaint: Fever Patient been experiencing intermittent fever. He denies any complain. He has good oral intake. No issues overnight. No agitation report. It appears his mental status is at baseline. Physical Examination - Vital Signs Temperature: 98.7 F Blood Pressure: 121/63 Pulse: 75 Respirations: 16 Pulse Ox (%): 96 - Physical Exam General: In no apparent distress, Other (Awake) HEENT: Mucous membr. moist/pink Neck: Supple Respiratory: Clear to auscultation bilaterally, Normal air movement Cardiovascular: No edema, Regular rate/rhythm, Normal S1 S2 Gastrointestinal: Normal bowel sounds, Soft and benign, Non-distended, No tenderness Musculoskeletal: No swelling Integumentary: Other (Sclerosis noted on the anterior aspect of both ankle, and dorsum of both feet.) Neurological: Other (Oriented x 1, nonfocal.) - Studies Medications List Reviewed: Yes Assessment And Plan - Current Problems (Diagnosis) (1) Metabolic encephalopathy Current Visit: Yes Status: Acute (2) Infection due to ESBL-producing Escherichia coli Current Visit: Yes Status: Acute (3) UTI (urinary tract infection) Current Visit: Yes Status: Acute (4) Alzheimer's dementia Current Visit: Yes Status: Acute (5) History of DVT (deep vein thrombosis) Current Visit: Yes Status: Acute (6) Acute worsening of stage 3 chronic kidney disease Current Visit: Yes Status: Acute - Plan Patient has good oral intake Discontinue IV fluid Continue IV meropenem. Anticoagulation with Xarelto Blood cultures have yielded no growth. PICC line placed for outpatient IV antibiotics Supportive measures. Diet as tolerated. Patient is negative for Covid 19.. He is DNR. D/C to NH once no fever for 48 hrs.
[2019-08-09] MEDS: RIVAROXABAN 15 MG TABLET PO SCH (17:13)
[2019-08-09] MEDS: ATORVASTATIN 10 MG TAB PO SCH (22:13)
[2019-08-10] MEDS: LEVOTHYROXINE SOD 0.05 MG TABLET PO SCH (06:11)
[2019-08-10] MEDS: SODIUM CHLORIDE 0.9% 10ML INJ IV SCH ×2 (09:00→22:35)
[2019-08-10] MEDS ORDERED: POTASSIUM 25 MEQ EFFERV TAB PO ONE (09:00)
[2019-08-10] MEDS: Meropenem 1,000 MG in NA CHLORIDE 0.9% 100 ML IV SCH ×2 (09:49→22:33)
[2019-08-10] MEDS: MEMANTINE HCL 10 MG TABLET PO SCH ×2 (09:50→22:31)
[2019-08-10] MEDS: MULTIVITAMIN TAB PO SCH (09:50)
[2019-08-10] MEDS: AMLODIPINE 5 MG TAB PO SCH (09:50)
[2019-08-10] MEDS: DOCUSATE NA 100 MG CAP PO SCH (09:50)
[2019-08-10] MEDS: ASPIRIN EC 81 MG TAB PO SCH (09:50)
[2019-08-10] MEDS: ISOSORBIDE MONO SR 30 MG TAB PO SCH (09:50)
[2019-08-10] MEDS: SENOSIDES 8.6 MG TAB PO SCH (09:51)
[2019-08-10] MEDS: FOLIC ACID 1 MG TABLET PO SCH (09:51)
[2019-08-10] MEDS: CYANOCOBALAMIN 1,000 MCG TAB PO SCH (09:51)
--- NOTE | 2019-08-10 10:59 | EKG ---
Test Date: 2019-08-07 Test Time: 06:12:17 Restaurant Hostess: RT-O MEASUREMENT RESULTS: Intervals: Rate: 51 [place]: QRSD: 86 QT: 488 QTc: 449 [place]: P: [place]: QRS: 12 T: 31 INTERPRETIVE STATEMENTS: Atrial fibrillation with slow ventricular response RSR' or QR pattern in V1 suggests right ventricular conduction delay Abnormal ECG Compared to ECG 08/06/2019 09:47:49 RSR' in V1 or V2 now present Sinus rhythm no longer present Right bundle-branch block no longer present Left anterior fascicular block no longer present Bifascicular block no longer present Left ventricular hypertrophy no longer present Myocardial infarct finding no longer present Electronically Signed On 08-10-19 10:56:26 CDT by Dominic Garcia
--- NOTE | 2019-08-10 12:16 | P.PN ---
Subjective Date of Service: 08/10/19 Primary Care Provider: jail patient Chief Complaint: Fever Patient has no complain, he is awake and interactive. T-max over the last 24 hours was 99.4. He has good oral intake. No agitation report. It appears his mental status has improved to baseline. Physical Examination - Vital Signs Temperature: 98.8 F Blood Pressure: 140/76 Pulse: 65 Respirations: 16 Pulse Ox (%): 97 - Physical Exam General: Other (Awake, pleasant.) HEENT: Mucous membr. moist/pink Neck: Supple Respiratory: Clear to auscultation bilaterally, Normal air movement Cardiovascular: No edema, Regular rate/rhythm, Normal S1 S2 Gastrointestinal: Normal bowel sounds, Soft and benign, Non-distended, No tenderness Musculoskeletal: No swelling, No erythema Neurological: Other (Nonfocal.) - Studies Medications List Reviewed: Yes Assessment And Plan - Current Problems (Diagnosis) (1) Metabolic encephalopathy Current Visit: Yes Status: Acute (2) Infection due to ESBL-producing Escherichia coli Current Visit: Yes Status: Acute (3) UTI (urinary tract infection) Current Visit: Yes Status: Acute (4) Alzheimer's dementia Current Visit: Yes Status: Acute (5) History of DVT (deep vein thrombosis) Current Visit: Yes Status: Acute (6) Acute worsening of stage 3 chronic kidney disease Current Visit: Yes Status: Acute - Plan Patient has good oral intake Continue IV meropenem. Continue anticoagulation with Xarelto Blood cultures have yielded no growth. PICC line placed for outpatient IV antibiotics Diet as tolerated. D/C to NH once no fever for the next 24 hrs.
[2019-08-10] MEDS: RIVAROXABAN 15 MG TABLET PO SCH (17:22)
[2019-08-10] MEDS: ATORVASTATIN 10 MG TAB PO SCH (22:30)
[2019-08-11] MEDS: LEVOTHYROXINE SOD 0.05 MG TABLET PO SCH (06:36)
[2019-08-11] MEDS: SODIUM CHLORIDE 0.9% 10ML INJ IV SCH (09:00)
[2019-08-11] MEDS: Meropenem 1,000 MG in NA CHLORIDE 0.9% 100 ML IV SCH (09:00)
[2019-08-11] MEDS: CYANOCOBALAMIN 1,000 MCG TAB PO SCH (09:05)
[2019-08-11] MEDS: DOCUSATE NA 100 MG CAP PO SCH (09:05)
[2019-08-11] MEDS: ASPIRIN EC 81 MG TAB PO SCH (09:05)
[2019-08-11] MEDS: ISOSORBIDE MONO SR 30 MG TAB PO SCH (09:05)
[2019-08-11] MEDS: AMLODIPINE 5 MG TAB PO SCH (09:05)
[2019-08-11] MEDS: MULTIVITAMIN TAB PO SCH (09:05)
[2019-08-11] MEDS: FOLIC ACID 1 MG TABLET PO SCH (09:05)
[2019-08-11] MEDS: MEMANTINE HCL 10 MG TABLET PO SCH (09:05)
[2019-08-11] MEDS: SENOSIDES 8.6 MG TAB PO SCH (09:05)
[2019-08-11 09:10] VITALS: O2SAT 95
[2019-08-11 10:19] LABS: Absolute Lymphocytes (CBC) 0.9 K/uL (0.7-4.9); Basophils % 0.8 % (0-1.3); Hematocrit 31.9 % (39.6-49.0); Lymphocytes % 15.9 % (15.3-44.8); MPV 9.9 fL (7.6-11.3); RBC Red Blood Cell Count 3.45 M/uL (4.33-5.43)
[2019-08-11 10:22] LABS: Potassium 4.3 mmol/L (3.5-5.1)
--- NOTE | 2019-08-11 11:58 | P.DS ---
Admission Date: 08/06/19 Discharge Date: 08/11/19 Primary Care Provider: half-way patient Disposition: TRANSFER TO GROUP HOME Discharge Condition: FAIR Reason for Admission: Fever Consultations: None Procedures: None - Problems (1) Metabolic encephalopathy Current Visit: Yes Status: Acute (2) Infection due to ESBL-producing Escherichia coli Current Visit: Yes Status: Acute (3) UTI (urinary tract infection) Current Visit: Yes Status: Acute (4) Alzheimer's dementia Current Visit: Yes Status: Acute (5) History of DVT (deep vein thrombosis) Current Visit: Yes Status: Acute (6) Acute worsening of stage 3 chronic kidney disease Current Visit: Yes Status: Acute Brief History of Present Illness: 88-year-old long term resident with a history of advanced Alzheimer dementia transferred from the long term to the emergency department due to fever and suspected altered mental status. Patient was recently admitted and treated for ESBL UTI. His urinalysis in the ED suggested the presence of UTI. His procalcitonin was mildly elevated. He had no leukocytosis. Patient was admitted for further management. Hospital Course: Patient was started on IV meropenem given history of ESBL UTI. Urine culture grew ESBL Klebsiella. He had intermittent fever. Patient received 5 days of IV meropenem. He defeversced 2 days ago. He has had no fever for 48 hours. His mental status appeared to be her baseline. He has good oral intake, vitals have been stable. Patient is deemed clinically stable for discharge. Noted he tested negative for Covid 19. Patient is discharged with fosfomycin to complete treatment for a ESBL Klebsiella UTI. His other medications are continued on discharge without any changes. Vital Signs/Physical Exam: Temp Pulse Resp BP Pulse Ox 97.1 F 65 16 149/66 H 95 08/11/19 08:00 08/11/19 09:05 08/11/19 08:00 08/11/19 09:05 08/11/19 08:00 General: In no apparent distress, Other HEENT: Mucous membr. moist/pink Neck: Supple Respiratory: Clear to auscultation bilaterally, Normal air movement Cardiovascular: No edema, Regular rate/rhythm, Normal S1 S2 Gastrointestinal: Normal bowel sounds, Soft and benign, No tenderness Musculoskeletal: No swelling, No erythema Neurological: Other (Nonfocal), Dementia Laboratory Data at Discharge: WBC 5.8 K/uL (4.3-10.9) D 08/11/19 09:56 Hgb 10.2 g/dL (13.6-17.9) L 08/11/19 09:56 Hct 31.9 % (39.6-49.0) L 08/11/19 09:56 Plt Count 190 K/uL (152-406) 08/11/19 09:56 PT 20.0 SECONDS (9.5-12.5) H 08/06/19 09:00 INR 1.71 08/06/19 09:00 APTT 37.7 SECONDS (24.3-36.9) H 08/06/19 09:00 Sodium 144 mmol/L (136-145) 08/11/19 09:56 Potassium 4.3 mmol/L (3.5-5.1) 08/11/19 09:56 BUN 23 mg/dL (7-18) H 08/11/19 09:56 Creatinine 1.31 mg/dL (0.55-1.3) H 08/11/19 09:56 Glucose 131 mg/dL (74-106) H 08/11/19 09:56 Magnesium 2.0 mg/dL (1.8-2.4) 08/09/19 04:20 Total Bilirubin 1.1 mg/dL (0.2-1.0) H 08/06/19 09:00 AST 14 U/L (15-37) L 08/06/19 09:00 ALT 16 U/L (12-78) 08/06/19 09:00 Alkaline Phosphatase 102 U/L (45-117) 08/06/19 09:00 Amylase 25 U/L (25-115) 08/06/19 09:00 Lipase 58 U/L (73-393) L 08/06/19 09:00 Home Medications: Amlodipine [Norvasc*] 5 mg PO DAILY 11/21/18 Aspirin [Aspir-Low] 1 tab PO DAILY 11/21/18 Cyanocobalamin (Vitamin B-12) [B-12] 500 mcg PO DAILY 11/21/18 Isosorbide Mononitrate [Isosorbide Mononitrate ER] 1 tab PO DAILY 11/21/18 Levothyroxine Sodium 1 tab PO DAILY 11/21/18 Lovastatin 1 tab PO BEDTIME 07/07/19 Docusate [Colace Cap*] 100 mg PO DAILY 06/05/19 Memantine HCl [Namenda*] 10 mg PO BID 06/05/19 Rivaroxaban [Xarelto*] 15 mg PO DAILY 06/05/19 Sennosides [Senna] 8.6 mg PO DAILY 06/05/19 Folic Acid 1 mg PO DAILY #90 tablet 06/08/19 Multivitamin with Iron [Animal Shapes Plus Iron] 1 each PO DAILY #90 tab.chew Fosfomycin Tromethamine [Monurol] 3 gm PO Q72H #3 packet 08/11/19 New Medications: Fosfomycin Tromethamine [Monurol] 3 gm PO Q72H #3 packet Diet: AHA Activity: Fall precautions Time spent managing pt's care (in minutes): 45
[2019-08-11 12:31] VITALS: BP 139/69; TEMP 97
== END 2019-08-11 15:35 | DRG 689 ==
LOC: ER 07:30 → ERHOLD 12:09 → 4TH 12:49
PROVIDERS: ADMIT Family Medicine; ATTEND Internal Medicine
PROC: 8E0ZXY6 Isolation (ICD-10-PCS; principal; 2019-08-06)
PROC: 02HV33Z Insertion of Infusion Device into Superior Vena Cava, Percutaneous Approach (ICD-10-PCS; 2019-08-11)
DX: N39.0 Urinary tract infection, site not specified (principal); G92 Toxic encephalopathy; N17.9 Acute kidney failure, unspecified; Z16.12 Extended spectrum beta lactamase (ESBL) resistance; Z66 Do not resuscitate; Z79.01 Long term (current) use of anticoagulants; Z86.718 Personal history of other venous thrombosis and embolism; I25.10 Atherosclerotic heart disease of native coronary artery without angina pectoris; G30.9 Alzheimer's disease, unspecified; F02.80 Dementia in other diseases classified elsewhere, unspecified severity, without behavioral disturbance, psychotic disturbance, mood disturbance, and anxiety; Z79.82 Long term (current) use of aspirin; Z79.890 Hormone replacement therapy; E03.9 Hypothyroidism, unspecified; E78.5 Hyperlipidemia, unspecified; E86.0 Dehydration; D64.9 Anemia, unspecified; Z03.818 Encounter for observation for suspected exposure to other biological agents ruled out; B96.20 Unspecified Escherichia coli [E. coli] as the cause of diseases classified elsewhere; I12.9 Hypertensive chronic kidney disease with stage 1 through stage 4 chronic kidney disease, or unspecified chronic kidney disease; N18.3 Chronic kidney disease, stage 3 (moderate)
CPT/HCPCS: 36415; 36569; 71045; 80048; 80076; 81003; 81015; 82150; 82550; 82553; 82947; 83605; 83690; 83735; 84145; 84484; 85025; 85610; 85730; 87040; 87077; 87086; 87088; 87186; 87804; 93005; 96365; 96375; 99285; J0360; J0696; J7030; U0001

== ENCOUNTER 2019-08-31 01:53 | Emergency (ER) | payer OTHER ==
--- NOTE | 2019-08-31 02:53 | EDPHYS ---
Physician Documentation [facility] Name: Sly Sutton Age: 88 yrs Sex: Male : 1930 Arrival Date: 08/31/2019 Time: 01:54 Bed 6 Private MD: ED Physician Robin Garrison HPI: 08/30 02:07 This 88 yrs old Black Male presents to ER via EMS with complaints of Fall Injury. snw 02:07 Details of fall: The patient fell from seated position, off the edge of a bed. Onset: snw The symptoms/episode began/occurred at an unknown time. Associated injuries: The patient sustained injury to the head, contusion, swelling. Severity of symptoms: At their worst the symptoms were mild, in the emergency department the symptoms are unchanged. It is unknown whether or not the patient has had similar symptoms in the past. The patient has been recently seen at the [facility] Emergency Department, a couple of weeks ago. unknown LOC, unknown onset of fall, pt awake, alert, Oriented to person. No complaints. 02:09 Pt takes Eliquis and Aspirin. snw Historical: - Allergies: 01:59 No Known Allergies; bb - Home Meds: 02:08 amlodipine 5 mg tab 1 tab once daily [Active]; aspirin 81 mg Oral chew 1 tab once daily bb [Active]; cyanocobalamin (vitamin B-12) 500 mcg Oral tab daily [Active]; Colace 100 mg oral cap 1 cap once daily [Active]; cyanocobalamin (vitamin B-12) 500 mcg oral tab [Active]; Flomax 0.4 mg Oral cp24 1 cap once daily [Active]; folic acid 1 mg Oral tab once daily [Active]; Hydrocortisone Acetate-Aloe Topical [Active]; isosorbide mononitrate 30 mg Oral Tb24 1 tab once daily [Active]; isosorbide mononitrate 30 mg Oral Tb24 1 tab once daily [Active]; levothyroxine 50 mcg tab 1 tab once daily [Active]; lovastatin 10 mg oral tab once daily [Active]; Multiple Vitamins with Iron oral chew [Active]; Namenda 10 mg oral tab 1 tab 2 times per day [Active]; probiotic [Active]; senna 8.6 mg oral cap 1 caps once daily [Active]; trazodone 50 mg Oral tab [Active]; Xarelto 15 mg Oral tab daily [Active]; furosemide 20 mg Oral tab 1 tab once daily [Active]; Monurol 3 gram oral pack 1 sachet [Active]; - PMHx: 01:59 Dementia; DVT; Hyperlipidemia; Hypertension; Hypothyroidism; UTI; bb - Immunization history: Last tetanus immunization: unknown. - Social history:: Smoking status: unknown. ROS: 02:05 Constitutional: Negative for fever, chills, and weight loss, ENT: Negative for injury, snw pain, and discharge, Neck: Negative for injury, pain, and swelling, Cardiovascular: Negative for chest pain, palpitations, and edema, Respiratory: Negative for shortness of breath, cough, wheezing, and pleuritic chest pain, Abdomen/GI: Negative for abdominal pain, nausea, vomiting, diarrhea, and constipation, Back: Negative for injury and pain, : Negative for injury, bleeding, discharge, and swelling, MS/Extremity: Negative for injury and deformity, Skin: Negative for injury, rash, and discoloration, Neuro: Negative for headache, weakness, numbness, tingling, and seizure, Psych: Negative for depression, anxiety, suicide ideation, homicidal ideation, and hallucinations. 02:05 Eyes: Positive for swelling, to left upper eyebrow s/p [facility], pt without voiced complaint. Exam: 02:03 Constitutional: This is a well developed, well nourished patient who is awake, alert, snw and in no acute distress. ENT: Nares patent. No nasal discharge, no septal abnormalities noted. Tympanic membranes are normal and external auditory canals are clear. Oropharynx with no redness, swelling, or masses, exudates, or evidence of obstruction, uvula midline. Mucous membranes moist. Neck: Trachea midline, no thyromegaly or masses palpated, and no cervical lymphadenopathy. Supple, full range of motion without nuchal rigidity, or vertebral point tenderness. No Meningismus. Chest/axilla: Normal chest wall appearance and motion. Nontender with no deformity. No lesions are appreciated. Cardiovascular: Regular rate and rhythm with a normal S1 and S2. No gallops, murmurs, or rubs. Normal PMI, no JVD. No pulse deficits. Respiratory: Lungs have equal breath sounds bilaterally, clear to auscultation and percussion. No rales, rhonchi or wheezes noted. No increased work of breathing, no retractions or nasal flaring. Abdomen/GI: Soft, non-tender, with normal bowel sounds. No distension or tympany. No guarding or rebound. No evidence of tenderness throughout. Back: No spinal tenderness. No costovertebral tenderness. Full range of motion. Skin: Warm, dry with normal turgor. Normal color with no rashes, no lesions, and no evidence of cellulitis. MS/ Extremity: Pulses equal, no cyanosis. Neurovascular intact. Full, normal range of motion. Psych: Awake, alert, with orientation to person, place and time. Behavior, mood, and affect are within normal limits. 02:03 Head/Face: Normocephalic, atraumatic. 02:03 Eyes: Periorbital structures: swelling, that is moderate, that is marked, on the middle aspect of left eyebrow, outer aspect of left eyebrow and left supraorbital ridge, contusion, Extraocular movements: intact throughout, Conjunctiva: injected, in the left eye, mildly at 9 O'clock. 02:03 Neuro: Orientation: to person, [facility] staff states [facility] is patient's norm, Mentation: able to follow commands, Memory: unable to test, the patient has a history of dementia, Gait: not tested. Vital Signs: 01:55 BP 174 / 75; Pulse 72; Resp 19; Pulse Ox 99% on R/A; rr5 01:55 Temp 98.1(TE); Weight 95.25 kg (R); Height 6 ft. 1 in. (185.42 cm) (R); Pain 0/10; bb 03:03 BP 164 / 76; Pulse 77; Resp 18; Pulse Ox 97% ; ea 04:08 BP 184 / 90; Pulse 60; Resp 18; Pulse Ox 98% ; ea 06:00 BP 160 / 82; Pulse 62; Resp 17; Pulse Ox 99% ; rr5 01:55 Body Mass Index 27.71 (95.25 kg, 185.42 cm) bb [place] Coma Score: 01:55 Eye Response: spontaneous(4). Verbal Response: oriented(5). Motor Response: obeys bb commands(6). Total: 15. Trauma Score (Adult): 01:55 Eye Response: spontaneous(1); Verbal Response: oriented(1); Motor Response: obeys bb commands(2); Systolic BP: > 89 mm Hg(4); Respiratory Rate: 10 to 29 per min(4); [place] Score: 15; Trauma Score: 12 MDM: 02:08 Data reviewed: vital signs, nurses notes. Data interpreted: Pulse oximetry: on room air snw is 99 %. Transition of care: After a detail discussion of the patient's case, care is transferred to Robin Garrison MD. 02:09 Patient medically screened. snw 02:51 Differential diagnosis: closed head injury, contusion, fracture. Counseling: I had a rn detailed discussion with the patient and/or guardian regarding: the historical points, exam findings, and any diagnostic results supporting the discharge/admit diagnosis, radiology results, the need for outpatient follow up, to return to the emergency department if symptoms worsen or persist or if there are any questions or concerns that arise at home. Special discussion: Based on the patient's history, exam and DX evaluation, there is no indication for emergent intervention or inpatient TX. It is understood by the patient/guardian that if the SXs persist or worsen they need to return immediately for re-evaluation. I discussed with the patient/guardian in detail that at this point there is no indication for admission to the hospital. It is understood, however, that if the symptoms persist or worsen the patient needs to return immediately for re-evaluation. 08/30 01:57 Order name: CT Head C Spine snw 08/30 01:57 Order name: Chest Single View XRAY snw 08/30 02:08 Order name: Ice pack; Complete Time: 02:12 snw Administered Medications: No medications were administered Disposition: 08/31/19 02:52 Discharged to Home. Impression: Superficial injury of head, Periorbital hematoma. - Condition is Stable. - Discharge Instructions: Head Injury, Adult, Hematoma. - Medication Reconciliation Form, Thank You Letter, Antibiotic Education, Prescription Opioid Use form. - Follow up: Private Physician; When: As needed; Reason: Recheck today's complaints, Re-evaluation by your physician. - Problem is new. - Symptoms have improved. Signatures: Dispatcher [employer] Trish Grace, HAT BODY SORTER-C HAT BODY SORTER-Csnw Greene, MONIK Machado RN, Brenda, RN RN bb Robin Garrison MD MD barn and property manager: (The following items were deleted from the chart) 08:31 02:52 08/31/2019 02:52 Discharged to Home. Impression: Superficial injury of head; em Periorbital hematoma. Condition is Stable. Forms are Medication Reconciliation Form, Thank You Letter, Antibiotic Education, Prescription Opioid Use. Follow up: Private Physician; When: As needed; Reason: Recheck today's complaints, Re-evaluation by your physician. Problem is new. Symptoms have improved. rn
--- NOTE | 2019-08-31 02:53 | ER ---
Nurse's Notes [facility] Name: Sly Sutton Age: 88 yrs Sex: Male : 1930 Arrival Date: 08/31/2019 Time: 01:54 Bed 6 Private MD: Diagnosis: Superficial injury of head;Periorbital hematoma Presentation: 08/30 01:55 Chief complaint: EMS states: they were toned out for report of pt being found on the bb floor with edema to left orbital area. Care prior to arrival: None. Mechanism of Injury: Fall unknown, pt found on floor. Trauma event details: Injury occurred in the [facility], Injury occurred: [facility] Injury occurred: August 31, 2019. 01:55 Method Of Arrival: EMS: [facility] bb 01:55 Acuity: FIORELLA 3 bb 01:58 Coronavirus screen: Proceed with normal triage. Ebola Screen: No symptoms or risks bb identified at this time. Initial Sepsis Screen: Does the patient meet any 2 criteria? No. Patient's initial sepsis screen is negative. Does the patient have a suspected source of infection? No. Patient's initial sepsis screen is negative. Risk Assessment: Do you want to hurt yourself or someone else? Patient reports no desire to harm self or others. Onset of symptoms was August 31, 2019. Trauma Activation: Alert Physician: ED Physician; Name: Dr Garrison; Notified At: 01:55; Arrived At: 01:55 Physician: General Surgeon; Name: ; Notified At: 01:55; Arrived At: Physician: Radiology; Name: ; Notified At: 01:55; Arrived At: Physician: Respiratory; Name: ; Notified At: 01:55; Arrived At: Physician: Lab; Name: ; Notified At: 01:55; Arrived At: Historical: - Allergies: 01:59 No Known Allergies; bb - Home Meds: 02:08 amlodipine 5 mg tab 1 tab once daily [Active]; aspirin 81 mg Oral chew 1 tab once daily bb [Active]; cyanocobalamin (vitamin B-12) 500 mcg Oral tab daily [Active]; Colace 100 mg oral cap 1 cap once daily [Active]; cyanocobalamin (vitamin B-12) 500 mcg oral tab [Active]; Flomax 0.4 mg Oral cp24 1 cap once daily [Active]; folic acid 1 mg Oral tab once daily [Active]; Hydrocortisone Acetate-Aloe Topical [Active]; isosorbide mononitrate 30 mg Oral Tb24 1 tab once daily [Active]; isosorbide mononitrate 30 mg Oral Tb24 1 tab once daily [Active]; levothyroxine 50 mcg tab 1 tab once daily [Active]; lovastatin 10 mg oral tab once daily [Active]; Multiple Vitamins with Iron oral chew [Active]; Namenda 10 mg oral tab 1 tab 2 times per day [Active]; probiotic [Active]; senna 8.6 mg oral cap 1 caps once daily [Active]; trazodone 50 mg Oral tab [Active]; Xarelto 15 mg Oral tab daily [Active]; furosemide 20 mg Oral tab 1 tab once daily [Active]; Monurol 3 gram oral pack 1 sachet [Active]; - PMHx: 01:59 Dementia; DVT; Hyperlipidemia; Hypertension; Hypothyroidism; UTI; bb - Immunization history: Last tetanus immunization: unknown. - Social history:: Smoking status: unknown. Screenin:55 Abuse screen: Denies threats or abuse. Tuberculosis screening: No symptoms or risk bb factors identified. 02:04 Nutritional screening: No deficits noted. Fall Risk Fall in past 12 months (25 points). rr5 Secondary diagnosis (15 points) dementia, Mental Status- Overestimates/Forgets Limitations (15 pts.). Total Garcia Fall Scale indicates High Risk Score (45 or more points). Fall prevention measures have been instituted. Side Rails Up X 2 Placed Close to Nursing Station Frequent Obs/Assessments Occuring. Primary Survey: 01:55 NO uncontrolled hemorrhage observed. A: The patient is alert. Airway: patent. bb Breathing/Chest: Respiratory pattern: regular, Respiratory effort: spontaneous, unlabored. Circulation: Heart tones present. Disability Alert. 01:55 Exposure/Environment: All clothing and personal items were removed. There is no rr5 evidence of uncontrolled external bleeding. Obvious injury(ies) are noted at this time: swelling hematoma at left eye A warming method has been applied: A warm blanket has been provided to the patient. 03:00 Reassessment Airway Airway Patent Trachea Midline Breathing/Chest Respiratory pattern rr5 Regular Respiratory effort Spontaneous Unlabored Chest inspection Symmetrical Circulation Pulses Palpable Color [place] Disability Alert. Secondary Survey: 02:00 HEENT: Eyes: Ecchymosis noted left eyebrow, left upper eyelid and left outer canthus. rr5 02:00 Gastrointestinal: Abdomen is soft, Bowel sounds present in all quadrants. : No signs rr5 and/or symptoms were reported regarding the genitourinary system. Musculoskeletal: Capillary refill < 3 seconds. Assessment: 01:55 General: Appears in no apparent distress. comfortable, Behavior is calm, cooperative. rr5 01:55 Pain: Unable to use pain scale. dementia patient. Neuro: Level of Consciousness is rr5 awake, alert, Oriented to person, dementia patient. Cardiovascular: Capillary refill < 3 seconds Patient's skin is warm and dry. Respiratory: Airway is patent Respiratory effort is even, unlabored, Respiratory pattern is regular, symmetrical. GI: No signs and/or symptoms were reported involving the gastrointestinal system. : No signs and/or symptoms were reported regarding the genitourinary system. EENT: Eyes swelling left eye. Sclera/Cornea are reddened in outer aspect of conjuctiva of left eye and inner aspect of conjunctiva of left eye. Derm: Skin is intact, is fragile, is thin, Skin temperature is warm. Musculoskeletal: Capillary refill < 3 seconds, Swelling present in left eye. 02:10 Reassessment: Patient appears in no apparent distress at this time. send for CT scan rr5 per stretcher assisted by CTstaff. 02:57 Reassessment: Patient appears in no apparent distress at this time. spoke to cassie alcala rr5 MANAGEMENT RETAIL INTERN informed patient is for discharge. she will call back, needs to wait she will arrange the in house transport. 04:07 Reassessment: Pt resting with eyes closed, respirations even and unlabored, chest ea expansions even and symmetrical. No s/s of pain or discomfort noted at this time. 05:10 Reassessment: Patient appears in no apparent distress at this time. No changes from rr5 previously documented assessment. 05:53 Reassessment: Patient appears in no apparent distress at this time. No changes from rr5 previously documented assessment. awaiting for [facility] transport. no complaints made. 06:10 Reassessment: Patient and/or family updated on plan of care and expected duration. Pain ea level reassessed. Pt resting with eyes closed, respirations even and unlabored, chest expansions even and symmetrical. No s/s of pain or discomfort noted at this time. Awaiting for [facility] transportation to pick pt up in the AM. 07:42 Reassessment: I called multiple times to get an ETA on pt's transportation, no answer. sv Will try again. 07:50 Reassessment: employee stated "Somebody will be here shortly to come get him.". sv Vital Signs: 01:55 BP 174 / 75; Pulse 72; Resp 19; Pulse Ox 99% on R/A; rr5 01:55 Temp 98.1(TE); Weight 95.25 kg (R); Height 6 ft. 1 in. (185.42 cm) (R); Pain 0/10; bb 03:03 BP 164 / 76; Pulse 77; Resp 18; Pulse Ox 97% ; ea 04:08 BP 184 / 90; Pulse 60; Resp 18; Pulse Ox 98% ; ea 06:00 BP 160 / 82; Pulse 62; Resp 17; Pulse Ox 99% ; rr5 01:55 Body Mass Index 27.71 (95.25 kg, 185.42 cm) bb [place] Coma Score: 01:55 Eye Response: spontaneous(4). Verbal Response: oriented(5). Motor Response: obeys bb commands(6). Total: 15. Trauma Score (Adult): 01:55 Eye Response: spontaneous(1); Verbal Response: oriented(1); Motor Response: obeys bb commands(2); Systolic BP: > 89 mm Hg(4); Respiratory Rate: 10 to 29 per min(4); [place] Score: 15; Trauma Score: 12 ED Course: 01:54 Patient arrived in ED. ds1 01:55 Trish Stephen F[facility]-C [facility]. snw 01:55 Robin Garrison MD is Attending Physician. snw 01:55 Patient has correct armband on for positive identification. Bed in low position. Call bb light in reach. Side rails up X2. 01:55 Patient maintains SpO2 saturation greater than 95% on room air. bb 01:56 Triage completed. bb 01:57 Alejandro Aden RN is Primary Nurse. rr5 01:59 Arm band placed on Patient placed in an exam room, on a stretcher, on pulse oximetry. bb 01:59 Thermoregulation: warm blanket given to patient. bb 02:10 Ice pack to injury. rr5 02:12 Chest Single View XRAY In Process Unspecified. EDMS 02:32 CT Head C Spine In Process Unspecified. EDMS 03:00 No provider procedures requiring assistance completed. Patient did not have IV access rr5 during this emergency room visit. Administered Medications: No medications were administered Intake: 01:55 PO: 0ml; Total: 0ml. bb Outcome: 02:52 Discharge ordered by MD. rn 02:59 Patient's length of stay in the Emergency Department was greater than 2 hours. patient rr5 awaiting for transport from [facility].Patient's length of stay extended due to 08:29 Discharged to [facility]. em 08:29 Condition: good 08:29 Discharge instructions given to patient, [facility], Instructed on discharge instructions, follow up and referral plans. Demonstrated understanding of instructions, follow-up care. 08:31 Patient left the ED. em Signatures: Dispatcher [employer] Radha Jimenez, RN Trish Ramos, TEASELER-C TEASELER-Csnw Carter Greene, RN RN Kaley Carroll ds1 Melody Malik RN RN bb Robin Garrison MD MD rn Antunez, Elena, RN RN ea Roque, Raymond, RN RN rr5 Corrections: (The following items were deleted from the chart) 02:11 01:55 Neuro: Level of Consciousness is awake, alert, Oriented to dementia patient. rr5 rr5
--- NOTE | 2019-08-31 07:24 | RAD REPORT ---
EXAM DESCRIPTION: RAD - Chest Single View - 08/31/2019 2:12 am CLINICAL HISTORY: TRAUMA, chest pain, patient found on floor COMPARISON: Portable August 08 TECHNIQUE: AP portable chest image was obtained 08/31/2019 2:12 am . FINDINGS: Lungs are clear. Heart and vasculature are normal. No measurable pleural effusion and no p neumothorax. No acute bony abnormality seen. No acute aortic finding. Interstitial pattern matches pr ior imaging. Right-side PICC line has been removed since prior imaging. IMPRESSION: No acute cardiopulmonary process.
[2019-08-31 08:38] VITALS: TEMP 98.1
[2019-08-31 08:43] VITALS: BP 160/82; O2SAT 99
--- NOTE | 2019-08-31 10:28 | RAD REPORT ---
EXAM DESCRIPTION: CT - CTHCSPWOC - 08/31/2019 3:10 am CLINICAL HISTORY: Swelling;Smash injury COMPARISON: None. TECHNIQUE: CT Head and Cervical spine WO contrast on 08/31/2019 1:57 AM CDT This exam was performed according to our departmental dose-optimization program, which includes autom ated exposure control, adjustment of the mA and/or kV according to patient size and/or use of iterati ve reconstruction technique. FINDINGS: Brain: There is no acute hemorrhage, mass effect or midline shift. Chiang-white differentiat ion is preserved. There is no hydrocephalus. There is mild to moderate diffuse cerebral atrophy. The calvarium is intact. There is a moderate left periorbital amount of soft tissue swelling. The par anasal sinuses are clear. Mastoid air cells are clear. Cervical Spine: There is no acute fracture. Alignment is anatomic. There is mild bilateral upper cerv ical facet arthritis. Disc spaces are maintained. Vertebral body heights are preserved. Soft tissues are unremarkable. IMPRESSION: No fracture or intracranial hemorrhage. Electronically signed by: Kapil Encarnacion MD 08/31/2019 2:45 AM CDT Due to temporary technical issues with the PACS/Fluency reporting system, reports are being signed by the in house radiologist as a courtesy to ensure prompt reporting. The interpreting radiologist is f ully responsible for the content of the report.
== END 2019-08-31 08:31 | disposition home or self-care (01) ==
LOC: ER 01:53
DX: S00.90XA Unspecified superficial injury of unspecified part of head, initial encounter (principal); S00.12XA Contusion of left eyelid and periocular area, initial encounter; W06.XXXA Fall from bed, initial encounter; F03.90 Unspecified dementia, unspecified severity, without behavioral disturbance, psychotic disturbance, mood disturbance, and anxiety; E78.5 Hyperlipidemia, unspecified; E03.9 Hypothyroidism, unspecified; I10 Essential (primary) hypertension; Z79.82 Long term (current) use of aspirin; Z79.01 Long term (current) use of anticoagulants; Z79.899 Other long term (current) drug therapy; Z86.718 Personal history of other venous thrombosis and embolism
CPT/HCPCS: 70450; 71045; 72125; 99284

== ENCOUNTER 2019-11-08 09:03 | Day surgery (SDC) | payer OTHER ==
[2019-11-04 10:24] LABS: Urine Appearance CLOUDY; Urine Bilirubin NEGATIVE (NEG); Urine Blood TRACE (NEG); Urine Color YELLOW; Urine Glucose NEGATIVE (NEG); Urine Protein NEGATIVE (NEG); Urine Urobilinogen 0.2 mg/dL (0.2-1.0)
[2019-11-04 10:26] LABS: Basophils % 0.4 % (0-1.3); Hematocrit 39.7 % (39.6-49.0); Lymphocytes % 12.9 % (15.3-44.8); MPV 9.4 fL (7.6-11.3); RBC Red Blood Cell Count 4.22 M/uL (4.33-5.43)
[2019-11-04 10:29] LABS: Protime INR 1.3
[2019-11-04 10:29] LABS: Urine Microscopic Reflex ORDER UMIC
[2019-11-04 10:52] LABS: Urine Bacteria <20 /HPF (NONE SEEN); Urine Culture Reflex Order NOT NEEDED; Urine Urothelial Cells <5 /HPF (NONE SEEN)
[2019-11-08] MEDS ORDERED: GENTAMICIN 80 MG/100 ML BAG 80 MG/100 ML BAG IV ONE (09:34)
[2019-11-08] MEDS ORDERED: Ringers Lactate 1,000 ML IV ONE (09:34)
[2019-11-08] MEDS ORDERED: FENTANYL CITR 100 MCG/2 ML ONE (09:49)
[2019-11-08] MEDS ORDERED: propofoL 200 MG/20 ML VIAL IV ONE (09:49)
[2019-11-08] MEDS ORDERED: LIDOCAINE 1% MPF 5 ML VIAL ONE (09:49)
[2019-11-08] MEDS ORDERED: NS 0.9% VIAL 10 ML ONE (10:57)
[2019-11-08] MEDS ORDERED: EPHEDRINE SULF 50 MG/ML VIAL ONE (10:57)
[2019-11-08] MEDS ORDERED: ONDANSETRON 4 MG/2 ML VIAL ONE (11:12)
[2019-11-08 12:00] VITALS: BP 112/56; TEMP 97.4; O2SAT 99
== END 2019-11-08 12:40 | disposition home or self-care (01) ==
LOC: OR 09:03
PROVIDERS: ATTEND Urology
PROC: 0TND8ZZ Release Urethra, Via Natural or Artificial Opening Endoscopic (ICD-10-PCS; principal; 2019-11-08 10:00)
DX: N35.919 Unspecified urethral stricture, male, unspecified site (principal); N40.1 Benign prostatic hyperplasia with lower urinary tract symptoms; N43.3 Hydrocele, unspecified; N39.0 Urinary tract infection, site not specified; F03.90 Unspecified dementia, unspecified severity, without behavioral disturbance, psychotic disturbance, mood disturbance, and anxiety; E03.9 Hypothyroidism, unspecified; Z79.82 Long term (current) use of aspirin; Z79.01 Long term (current) use of anticoagulants; Z79.899 Other long term (current) drug therapy; Z87.891 Personal history of nicotine dependence
CPT/HCPCS: 87088; 85025; 87086; 80048; 36415; 85610; 85730; 52276; J2704; J3010; J7120; J1580; J2405; 81003; 81015

== ENCOUNTER 2021-03-03 17:20 | Inpatient (IN) | payer OTHER ==
[2021-03-03 18:12] LABS: Absolute Lymphocytes (CBC) 2.3 K/uL (0.7-4.9); Basophils % 0.3 % (0-1.3); Hematocrit 35.8 % (39.6-49.0); Lymphocytes % 26.9 % (15.3-44.8); MPV 8.1 fL (7.6-11.3); Protime INR 1.55; RBC Red Blood Cell Count 3.69 M/uL (4.33-5.43)
[2021-03-03 18:24] LABS: ALT/SGPT 31 U/L (12-78); AST/SGOT 19 U/L (15-37); Albumin 3.3 g/dL (3.4-5.0); Alkaline Phosphatase 141 U/L (45-117); BUN Blood Urea Nitrogen 17 mg/dL (7-18); Bicarbonate 24 mmol/L (21-32); Bilirubin Direct < 0.1 mg/dL (0-0.2); Bilirubin Total 0.3 mg/dL (0.2-1.0); Glucose Level 95 mg/dL (74-106); Magnesium 2.4 mg/dL (1.8-2.4); NT PRO-BNP 675 pg/mL (<450); Potassium 3.8 mmol/L (3.5-5.1); Protein, Total 8.1 g/dL (6.4-8.2); Sodium Level 145 mmol/L (136-145); Troponin (Emerg Dept Use Only) < 0.02 ng/mL (0.0-0.045)
[2021-03-03 18:30] LABS: Amylase 45 U/L (25-115); Creatine Phosphokinase 88 U/L (39-308); Lipase 248 U/L (73-393)
[2021-03-03 18:31] LABS: CKMB Creatine Kinase MB < 1.0 ng/mL (1.0-3.6)
--- NOTE | 2021-03-03 18:49 | RAD REPORT ---
EXAM DESCRIPTION: Abelardo Single View03/03/2021 6:10 pm CLINICAL HISTORY: Alteration of consciousness COMPARISON: none FINDINGS: The lungs appear clear of acute infiltrate. The heart is normal size IMPRESSION: No acute abnormalities displayed
--- NOTE | 2021-03-03 18:50 | RAD REPORT ---
EXAM DESCRIPTION: RAD - Knee Left 3 View - 03/03/2021 6:11 pm CLINICAL HISTORY: Left knee pain FINDINGS: No fracture or dislocation is seen. Moderate medial joint space narrowing and osteophytes. Diffuse edema within the subcutaneous tissues
[2021-03-03] MEDS ORDERED: CEFEPIME 1 GM/VIAL ONE (19:13)
[2021-03-03] MEDS ORDERED: NA CHLORIDE 0.9% 100 ML ONE (19:13)
[2021-03-03] MEDS ORDERED: NA CHLORIDE 0.9% 2,000 ML ONE (19:13)
--- NOTE | 2021-03-03 19:16 | EDPHYS ---
Physician Documentation [facility] Name: Sly Sutton Age: 89 yrs Sex: Male : 1930 Arrival Date: 03/03/2021 Time: 17:24 Bed 2 Private MD: ED Physician Benitez Arthur HPI: 03/03 19:15 This 89 yrs old Black Male presents to ER via EMS with complaints of Altered Mental kdr Status. 19:15 The patient presents with decreased responsiveness. Onset: The symptoms/episode kdr began/occurred suddenly, just prior to arrival. Possible causes: CVA or TIA, seizure, sepsis. Associated signs and symptoms: Pertinent positives: combativeness, confusion, weakness. Current symptoms: In the emergency department the patient's symptoms have improved, moderately, Patient is now awake but still confused. Patient's baseline: Exact baseline is unknown as there is no family present. It is unknown whether or not the patient has had similar symptoms in the past. It is unknown whether or not the patient has recently seen a physician. 19:18 Patient reportedly slumped over while at the dining table at [facility]. kdr EMS reports that CPR was started and continued for about 2 to 3 minutes. Patient did not regain consciousness during that time. It is unclear but it is reported that at a 5-minute interval of the patient became responsive again but was lethargic. EMS reported that the patient had returned to his mental baseline by the time they arrived at the hospital. Is unclear how that was established. On initial exam the patient was awake and talking but confused. The patient was unable to give any coherent answers but did respond to questioning with unrelated information.. Historical: - Allergies: 17:59 No Known Allergies; jd3 - PMHx: 17:59 Hyperlipidemia; Dementia; DVT; Hypertension; Hypothyroidism; UTI; jd3 - Immunization history:: Adult Immunizations unknown. - Social history:: Smoking status: unknown. ROS: 19:18 Constitutional: Unobtainable secondary to altered mental status Eyes: Negative for kdr injury, pain, redness, and discharge. 19:18 Unable to obtain ROS due to altered mental status. Exam: 19:18 Constitutional: This is a well developed, well nourished patient who is awake, but kdr confused and in no acute distress. Head/Face: Normocephalic, atraumatic. Eyes: Pupils equal round and reactive to light, extra-ocular motions intact. Lids and lashes normal. Conjunctiva and sclera are non-icteric and not injected. Cornea within normal limits. Periorbital areas with no swelling, redness, or edema. Neck: Trachea midline, no thyromegaly or masses palpated, and no cervical lymphadenopathy. Supple, full range of motion without nuchal rigidity, or vertebral point tenderness. No Meningismus. Chest/axilla: Normal chest wall appearance and motion. Nontender with no deformity. No lesions are appreciated. Cardiovascular: Regular rate and rhythm with a normal S1 and S2. No gallops, murmurs, or rubs. Normal PMI, no JVD. No pulse deficits. Back: No spinal tenderness. No costovertebral tenderness. Full range of motion. Skin: Warm, dry with normal turgor. Normal color with no rashes, no lesions, and no evidence of cellulitis. 19:18 Respiratory: the patient does not display signs of respiratory distress, Respirations: normal, Breath sounds: rales, that are mild, are scattered. 19:18 Abdomen/GI: Inspection: obese Bowel sounds: active, Palpation: soft, nontender. 19:18 Musculoskeletal/extremity: Extremities: grossly normal except: noted in the lateral aspect of left knee and left knee: Vital Signs: 18:04 BP 153 / 78; Pulse 87; Resp 15 S; Temp 98.0(TE); Pulse Ox 100% on R/A; Weight 104.33 kg jd3 (R); Height 5 ft. 10 in. (177.80 cm) (R); Pain 0/10; 20:40 BP 163 / 93; Pulse 96; Resp 18; Pulse Ox 100% on R/A; lh3 18:04 Body Mass Index 33.00 (104.33 kg, 177.80 cm) jd3 MDM: 19:14 Patient medically screened. kdr 19:18 Data reviewed: vital signs, nurses notes, lab test result(s), radiologic studies. kdr Counseling: I had a detailed discussion with the patient and/or guardian regarding: the historical points, exam findings, and any diagnostic results supporting the discharge/admit diagnosis, lab results, radiology results, the need for further work-up and treatment in the hospital. 03/03 17:26 Order name: Basic Metabolic Panel; Complete Time: 18:26 kdr 03/03 17:26 Order name: CBC with Diff; Complete Time: 18:43 kdr 03/03 17:26 Order name: LFT's; Complete Time: 18:26 kdr 03/03 17:26 Order name: Magnesium; Complete Time: 18:26 kdr 03/03 17:26 Order name: NT PRO-BNP; Complete Time: 18:26 kdr 03/03 17:26 Order name: PT-INR; Complete Time: 18:43 kdr 03/03 17:26 Order name: Troponin (emerg Dept Use Only); Complete Time: 18:26 kdr 03/03 17:38 Order name: Amylase, Serum; Complete Time: 18:43 kdr 03/03 17:38 Order name: Blood Culture Adult (2) kdr 03/03 17:38 Order name: CPK; Complete Time: 18:43 kdr 03/03 17:38 Order name: Ckmb; Complete Time: 18:43 kdr 03/03 17:38 Order name: Lactate; Complete Time: 18:43 kdr 03/03 17:38 Order name: Lipase; Complete Time: 18:43 kdr 03/03 17:38 Order name: Procalcitonin; Complete Time: 19:03 kdr 03/03 17:26 Order name: XRAY Chest (1 view); Complete Time: 19:03 kdr 03/03 17:38 Order name: Ptt, Activated; Complete Time: 18:43 kdr 03/03 17:38 Order name: Urine Microscopic Only kdr 03/03 17:38 Order name: CT Head C Spine; Complete Time: 20:08 kdr 03/03 17:38 Order name: CT Head Angio; Complete Time: 20:08 kdr 03/03 17:38 Order name: CT Neck Angio; Complete Time: 20:08 kdr 03/03 17:39 Order name: Urine Culture kdr 03/03 17:40 Order name: COVID-19 SARS RT PCR (Document "Date of Onset" if Symptomatic) kdr 03/03 17:41 Order name: SARS-COV-2 RT PCR; Complete Time: 20:08 EDMS 03/03 17:46 Order name: Knee Left 3 View XRAY; Complete Time: 19:03 kdr 03/03 19:34 Order name: ETOH Level la1 03/03 19:34 Order name: UDS la1 03/03 19:59 Order name: Urine Dipstick-Ancillary; Complete Time: 20:08 EDMS 03/03 20:21 Order name: Urine Dipstick-Ancillary EDSD 03/03 17:26 Order name: EKG; Complete Time: 17:26 kdr 03/03 17:26 Order name: Cardiac monitoring; Complete Time: 19:15 kdr 03/03 17:26 Order name: EKG - Nurse/Tech; Complete Time: 19:15 kdr 03/03 17:26 Order name: IV Saline Lock; Complete Time: 19:16 kdr 03/03 17:26 Order name: Labs collected and sent; Complete Time: 19:16 kdr 03/03 17:26 Order name: O2 Per Protocol; Complete Time: 19:16 kdr 03/03 17:26 Order name: O2 Sat Monitoring; Complete Time: 19:16 kdr 03/03 17:38 Order name: Accucheck; Complete Time: 18:30 kdr 03/03 17:38 Order name: IV Saline Lock - Large Bore; Complete Time: 18:02 kdr Administered Medications: 20:05 Drug: NS 0.9% (30 ml/kg) 30 ml/kg Route: IV; Rate: bolus; Site: left antecubital; lh3 20:05 Drug: Cefepime 1 grams Route: IVPB; Rate: 200 ml/hr; Infused Over: 30 mins; Site: left lh3 antecubital; 20:42 Drug: vancoMYCIN 1.5 grams Route: IVPB; Rate: calculated rate; Site: left antecubital; lh3 Disposition Summary: 03/03/21 19:14 Hospitalization Ordered Hospitalization Status: Inpatient Admission kdr Provider: Shasta Cabrera Location: Telemetry/MedSur (Inpatient) kdr Condition: Fair kdr Problem: new kdr Symptoms: have improved kdr Bed/Room Type: Standard kdr Room Assignment: 402(03/03/21 20:21) eb1 Diagnosis - Altered mental status, syncope, lactic acidosis, left knee pain/swelling kdr Forms: - Medication Reconciliation Form kdr - SBAR form kdr Signatures: Dispatcher [employer] EDMS Benitez Arthur MD MD kdr Misael Sales, ARNOL-C OXYGEN THERAPIST-Sammi1 Christian Corona RN RN jPaige Washburn RN RN eb1 Leake, Jeri, RN RN lh3 Corrections: (The following items were deleted from the chart) 20:21 19:14 kdr eb1
--- NOTE | 2021-03-03 19:16 | ER ---
Nurse's Notes [facility] Name: Sly Sutton Age: 89 yrs Sex: Male : 1930 Arrival Date: 03/03/2021 Time: 17:24 Bed 2 Private MD: Diagnosis: Altered mental status, syncope, lactic acidosis, left knee pain/swelling Presentation: 03/03 17:28 Chief complaint: EMS states: "we were called out for a 89 year old man at [address] who was at the dinning table when he slumped over and went unresponsive according to the staff. the staff reported doing CPR for about 2-3 min then the pt became responsive again at 5 mins. upon EMS arrival the pt was lethargic, but was fully alert by the time we got to the hospital. BGL of 88. pt seeming to be at baseline mentation upon arrival to ER according to [facility]'s report of baseline.". 17:51 Coronavirus screen: At this time, the client does not indicate any symptoms associated [facility] with coronavirus-19. Ebola Screen: Patient negative for fever greater than or equal to 101.5 degrees Fahrenheit, and additional compatible Ebola Virus Disease symptoms. Initial Sepsis Screen: Does the patient meet any 2 criteria? No. Patient's initial sepsis screen is negative. Does the patient have a suspected source of infection? No. Patient's initial sepsis screen is negative. Risk Assessment: Do you want to hurt yourself or someone else? Patient reports no desire to harm self or others. Onset of symptoms was March 03, 2021. 17:51 Method Of Arrival: EMS: [place] [id number] 17:51 Acuity: FIORELLA 2 jd3 Historical: - Allergies: 17:59 No Known Allergies; jd3 - PMHx: 17:59 Hyperlipidemia; Dementia; DVT; Hypertension; Hypothyroidism; UTI; jd3 - Immunization history:: Adult Immunizations unknown. - Social history:: Smoking status: unknown. Screenin:45 Abuse screen: Denies threats or abuse. Denies injuries from another. Nutritional tw5 screening: No deficits noted. Tuberculosis screening: No symptoms or risk factors identified. Fall Risk. Assessment: 17:54 General: Appears in no apparent distress. Behavior is cooperative, restless. Pain: tw5 Complains of pain in left leg Noted to be confused, guarding. Neuro: Level of Consciousness is awake, alert, confused, Oriented to person, Tie Inspector are equal bilaterally. Cardiovascular: Heart tones S1 S2. Respiratory: Airway is patent Trachea midline Respiratory effort is even, unlabored. 17:58 General: Appears. tw5 17:58 General: Behavior is cooperative, agitated. tw5 18:45 General: Appears in no apparent distress. Behavior is. Neuro: Level of Consciousness is tw5 awake, alert, obeys commands, confused, Oriented to person, Tie Inspector are equal bilaterally. 21:50 Reassessment: patient pulled IV out, new IV started at this time. 3 Vital Signs: 18:04 BP 153 / 78; Pulse 87; Resp 15 S; Temp 98.0(TE); Pulse Ox 100% on R/A; Weight 104.33 kg jd3 (R); Height 5 ft. 10 in. (177.80 cm) (R); Pain 0/10; 20:40 BP 163 / 93; Pulse 96; Resp 18; Pulse Ox 100% on R/A; lh3 18:04 Body Mass Index 33.00 (104.33 kg, 177.80 cm) jd3 ED Course: 17:22 No apparent distress. tw5 17:22 EKG done, by ED staff. tw5 17:24 Patient arrived in ED. lp1 17:24 Benitez Arthur MD is Attending Physician. kdr 17:54 Carrie Martinez is Primary Nurse. tw5 17:54 Patient has correct armband on for positive identification. Placed in gown. Bed in low tw5 position. Call light in reach. Side rails up X2. meteorology faculty member on. Pulse ox on. NIBP on. Door closed. Noise minimized. Moved to private room. Pillow given. Verbal reassurance given. 17:54 Missed attempt(s): 20 gauge 22 gauge in right hand. antecubital area. Bleeding tw5 controlled, band aid applied, catheter tip intact. 17:54 Inserted saline lock: 22 gauge in left forearm, using aseptic technique. tw5 17:57 Triage completed. jd3 17:57 Initial lab(s) drawn, by me, by ED staff, First set of blood cultures drawn by me. tw5 18:10 XRAY Chest (1 view) In Process Unspecified. EDMS 18:11 Knee Left 3 View XRAY In Process Unspecified. EDMS 18:24 COVID-19 SARS RT PCR (Document "Date of Onset" if Symptomatic) Sent. tw5 18:38 Notified ED physician of a critical lab result(s). lactate of 9.4, primary care nurse tw2 MONIK Butler notified \\T\\ Dr. Arthur notified. 18:[address] Scan. tw5 18:46 Second set of blood cultures drawn by wv. tw5 19:13 Shasta Cabrera MD is Hospitalizing Provider. kdr 19:15 SARS-COV-2 RT PCR Sent. bs2 19:16 CT Head C Spine Sent. bs2 19:16 CT Head Angio Sent. bs2 19:16 CT Neck Angio Sent. bs2 19:17 CT Head C Spine In Process Unspecified. EDMS 19:23 CT Head Angio In Process Unspecified. EDMS 19:23 CT Neck Angio In Process Unspecified. EDMS 20:29 No provider procedures requiring assistance completed. Patient admitted, IV remains in [address]. 20:30 Arm band placed on. 3 21:50 Inserted saline lock: 20 gauge in right antecubital area, using aseptic technique. 3 Administered Medications: 20:05 Drug: NS 0.9% (30 ml/kg) 30 ml/kg Route: IV; Rate: bolus; Site: left antecubital; [facility] 20:05 Drug: Cefepime 1 grams Route: IVPB; Rate: 200 ml/hr; Infused Over: 30 mins; Site: left 3 antecubital; 20:42 Drug: vancoMYCIN 1.5 grams Route: IVPB; Rate: calculated rate; Site: left antecubital; [facility] Outcome: 19:14 Decision to Hospitalize by Provider. kdr 20:29 Admitted to Med/surg room 402, with chart. 3 20:29 Condition: good 20:29 Instructed on the need for admit. 22:27 Patient left the ED. 3 Signatures: Dispatcher [employer] EDAK Benitez Arthur MD MD kdr Kristine Warner RN RN lp1 Dariela Moore RN RN tw2 Christian Corona RN RN jSamia Navarrete RN RN bs2 Jeri Lewis RN RN 3 Carrie Martinez tw5 Corrections: (The following items were deleted from the chart) 17:57 17:28 Chief complaint: EMS states: "we were called out for a 89 year old man at [address] who was at the [facility] 17:59 17:54 General: Appears in no apparent distress. Behavior is uncooperative, tw5 tw5
[2021-03-03] MEDS ORDERED: VANCOMYCIN 1 GM/VIAL ONE (19:17)
[2021-03-03] MEDS ORDERED: NA CHLORIDE 0.9% 250 ML ONE (19:17)
--- NOTE | 2021-03-03 19:44 | RAD REPORT ---
EXAM DESCRIPTION: CT - Head C Spine Mpr Wo Con - 03/03/2021 7:18 pm CLINICAL HISTORY: Alteration of consciousness/neck pain COMPARISON: 2019 TECHNIQUE: Computed axial tomography of the head and cervical spine was obtained. Sagittal and coronal reconstruction was performed. All CT scans are performed using dose optimization technique as appropriate and may include automated exposure control or mA/KV adjustment according to patient size. FINDINGS: An intracranial bleed is not seen. Prominence of the ventricles unchanged presumably relat ed to atrophy. . An extra-axial fluid collection is not noted. Moderate low-density areas within periventricular, deep and subcortical white matter likely ischemic changes secondary to small vessel disease. Prominent cerebral atrophy Fluid within the visualized sinuses and mastoids is not seen A cervical fracture is not visualized. No dislocation is noted. Spondylosis involves the cervical spi ne. This results in moderate right foraminal stenosis C3-4 and C5-6 IMPRESSION: No acute intracranial abnormality is seen. A cervical fracture is not visualized. 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
--- NOTE | 2021-03-03 19:49 | P.HP ---
Certification for Inpatient Patient admitted to: Inpatient With expected LOS: >2 Midnights Patient will require the following post-hospital care: None Practitioner: I am a practitioner with admitting privileges, knowledge of patient current condition, hospital course, and medical plan of care. Services: Services provided to patient in accordance with Admission requirements found in Title 42 Section 412.3 of the Code of Federal Regulations <Misael Sales - Last Filed: 03/03/21 19:44> Patient History Date of Service: 03/03/21 Primary Care Provider: long-term doctor Reason for admission: Syncope and collapse, lactic acidosis History of Present Illness: 89-year-old -[place] male with history of dementia, hypertension, hypothyroidism, UTI, DVT presents emergency department for syncope and collapse. Patient reportedly slumped over at dining room table at long-term, staff performed chest compressions for approximately 2 to 3 minutes and patient slowly began regaining consciousness. Upon arrival of EMS patient was drowsy but awake, by time patient was at hospital he was back to his baseline mental status per long-term. Patient was evaluated in the emergency department labs were significant for hemoglobin one-point hematocrit 35.8 chloride 109 creatinine 1.6 GFR 50 lactic acid 9.4 alk phos 141 BNP 675 urinalysis pending Covid test pending. Patient currently at baseline mental status vital signs are stable, CT head pending. ED prior wishes to admit for further evaluation and management of syncope/collapse, lactic acidosis. - Past Medical/Surgical History Diabetic: No -: Severe Alzheimers dementia -: HTN -: Hypothyroidism -: Hyperlipidemia -: Hx of DVT on chronic anticoagulation -: Hx of BPH and prostate issues -: Hx of recurrent resistent UTI -: GERD -: Prostate procedures Psychosocial/ Personal History: Lives in [place] since September of 2018 - Family History Father -: Heart disease - Social History Smoking Status: Unknown if ever smoked Alcohol use: No CD- Drugs: No Caffeine use: Yes Place of Residence: Home <Misael Sales - Last Filed: 03/03/21 19:44> Date of Service: 03/03/21 <Shasta Cabrera - Last Filed: 03/11/21 01:36> Allergies No Known Allergies Allergy (Verified 11/21/18 06:45) Home Medications: Amlodipine [Norvasc*] 5 mg PO DAILY 11/21/18 Aspirin [Aspir-Low] 1 tab PO DAILY 11/21/18 Cyanocobalamin (Vitamin B-12) [B-12] 500 mcg PO DAILY 11/21/18 Isosorbide Mononitrate [Isosorbide Mononitrate ER] 1 tab PO DAILY 11/21/18 Levothyroxine Sodium 1 tab PO DAILY 11/21/18 Lovastatin 10 mg PO BEDTIME 11/21/18 Memantine HCl [Namenda*] 10 mg PO BID 06/05/19 Rivaroxaban [Xarelto*] 15 mg PO DAILY 06/05/19 Sennosides [Senna] 8.6 mg PO DAILY 06/05/19 Ascorbic Acid 500 mg PO DAILY 03/04/21 Cefdinir [Cefdinir*] 300 mg PO BID 03/04/21 Cholecalciferol (Vitamin D3) [Vitamin D3] 1,250 mcg PO EVERY 7TH DAY 03/04/21 Furosemide [Lasix] 20 mg PO DAILY 03/04/21 Hydrocortisone [Cortisone] 1 david TOP BID 03/04/21 Tamsulosin HCl [Flomax] 0.4 mg PO DAILY 03/04/21 Tramadol HCl [Ultram] 50 mg PO Q6H PRN 03/04/21 Trazodone [Desyrel*] 50 mg PO DAILY 03/04/21 Zinc Sulfate [Zinc Sulfate*] 1 tab PO DAILY 03/04/21 Metoprolol Tartrate [Lopressor] 25 mg PO BID #60 tab 03/05/21 Review of Systems is unable to be obtained <Misael Sales - Last Filed: 03/03/21 19:44> Physical Examination - Physical Exam General: Alert, Oriented x1, Cooperative HEENT: Atraumatic Neck: Supple Respiratory: Clear to auscultation bilaterally, Normal air movement Cardiovascular: No edema, Normal S1 S2 Capillary refill: <2 Seconds Gastrointestinal: Normal bowel sounds Musculoskeletal: No contractures, No erythema, No tenderness Integumentary: No significant lesion, No tenderness/swelling, No erythema Neurological: Normal strength at 5/5 x4 extr, Normal tone - Studies Laboratory Data (last 24 hrs) 03/03/21 17:45: APTT 37.3 H 03/03/21 17:45: Amylase 45, Lipase 248 03/03/21 17:45: PT 17.9 H, INR 1.55 03/03/21 17:45: WBC 8.40, Hgb 11.3 L, Hct 35.8 L, Plt Count 264 03/03/21 17:45: Sodium 145, Potassium 3.8, BUN 17, Creatinine 1.60 H, Glucose 95, Magnesium 2.4, Total Bilirubin 0.3, AST 19, ALT 31, Alkaline Phosphatase 141 H <Misael Sales - Last Filed: 03/03/21 19:44> Assessment and Plan - Plan Assessment: Syncope and collapse Lactic acidosis Severe Alzheimer's dementia Hypertension Hypothyroid History of DVT Plan: Syncope and collapse: Patient currently back at baseline mental status, unable to ascertain event surrounding syncope as patient has severe Alzheimer's dementia and is not aware of his surroundings. long-term staff reportedly performed CPR for 2 to 3 minutes, it is unknown if patient had a pulse at this t tara. We will continue to monitor on telemetry, obtain echocardiogram and MRI stroke protocol as well as carotid Dopplers. Cardiology consulted. Lactic acidosis: Unknown etiology likely related to administration of CPR/syncope. Patient given IV fluids in the emergency department will recheck, also check again in the morning. Obtain EtOH level. Severe Alzheimer's dementia: Obtain and continue home medications Hypertension:Obtain and continue home medications Hypothyroid:Obtain and continue home medications History of DVT:Obtain and continue home medications, patient previously on Xarelto, unsure if still on this medication. Will obtain verify and continue home medications as appropriate. DVT PPX: Lovenox Code status: Full Discharge Plan: Home Plan to discharge in: 48 Hours - Advance Directives Does patient have a Living Will: Yes Does patient have a Durable POA for Healthcare: No - Code Status/Comfort Care Code Status Assessed: Yes (Full code) Critical Care: No Time Spent Managing Pts Care (In Minutes): 55 <Misael Sales - Last Filed: 03/03/21 19:44> - Problems (Diagnosis) (1) Syncope and collapse Status: Acute (2) Lactic acidosis Status: Acute (3) Alzheimer's dementia Status: Acute (4) Hypernatremia Status: Acute (5) Infection due to ESBL-producing Escherichia coli Status: Acute <Shasta Cabrera - Last Filed: 03/11/21 01:36> Date of Service: 03/04/21 Subjective Agree with HPI as above Review of Systems 10-point ROS is otherwise unremarkable Physical Examination - Vital Signs Reviewed - Physical Exam General: Alert, In no apparent distress, Demented HEENT: Atraumatic, PERRLA, EOMI Neck: Supple, JVD not distended Respiratory: Clear to auscultation bilaterally, Normal air movement Cardiovascular: Regular rate/rhythm, Normal S1 S2 Gastrointestinal: Normal bowel sounds, Soft and benign, Non-distended, No tenderness Musculoskeletal: No clubbing, No swelling, No tenderness Neurological: Sensation intact, Cranial nerves 3-12 intact Assessment & Plan - Problems (Diagnosis) (1) Syncope and collapse Status: Acute (2) Lactic acidosis Status: Acute (3) Alzheimer's dementia Status: Acute (4) Hypernatremia Status: Acute (5) Infection due to ESBL-producing Escherichia coli Status: Acute - Plan Plan: 1. Echocardiogram 2. Monitor on telemetry 3. Monitor electrolytes 4. Cardiology consultation 5. Monitor lactic acid 6. Hydration 7. GI and DVT prophylaxis <Shasta Cabrera - Last Filed: 03/11/21 01:36>
--- NOTE | 2021-03-03 19:51 | RAD REPORT ---
EXAM DESCRIPTION: Dennis Angio03/03/2021 7:23 pm CLINICAL HISTORY: Alteration of consciousness/neck pain COMPARISON: None TECHNIQUE: 50 cc Isovue 370 was administered intravenously. 3D MIP reconstruction performed All CT scans are performed using dose optimization technique as appropriate and may include automated exposure control or mA/KV adjustment according to patient size. FINDINGS: Mild plaque within the common carotid, internal carotid and external carotid arteries bila terally Vertebral arteries are patent without significant abnormality. IMPRESSION: Mild plaque within carotid arteries NASCET criteria used. Mild 0-49% stenosis Moderate 50-69% stenosis Severe 70-99% stenosis
--- NOTE | 2021-03-03 19:55 | RAD REPORT ---
EXAM DESCRIPTION: CTHead angio03/03/2021 7:23 pm CLINICAL HISTORY: Alteration of consciousness/neck pain COMPARISON: None TECHNIQUE: CT angiogram of the head was obtained. 3D MIPS reconstruction performed. All CT scans are performed using dose optimization technique as appropriate and may include automated exposure control or mA/KV adjustment according to patient size. FINDINGS: The basilar, internal carotid, anterior cerebral, middle cerebral and posterior cerebral a rteries are normal caliber. An aneurysm is not seen. A significant stenosis is not noted. IMPRESSION: No significant abnormalities displayed
[2021-03-03 19:59] LABS: Urine Blood 1+ (Negative); Urine Glucose Negative (Negative); Urine Protein Negative (Negative); Urine pH 5.5 (5.0-7.0)
[2021-03-03 20:20] LABS: Urine Blood 1+ (Negative); Urine Glucose Negative (Negative); Urine Protein Negative (Negative); Urine pH 5.5 (5.0-7.0)
[2021-03-03 20:33] LABS: Urine Bacteria <20 /HPF (NONE SEEN)
[2021-03-03 20:36] LABS: Barbiturates NEGATIVE (NEGATIVE); Benzodiazepines NEGATIVE (NEGATIVE); Cocaine NEGATIVE (NEGATIVE); METHAMPHETAM NEGATIVE (NEGATIVE); Methadone NEGATIVE (NEGATIVE); Opiates NEGATIVE (NEGATIVE); Phencyclidine NEGATIVE (NEGATIVE); THC Cannibis NEGATIVE (NEGATIVE)
[2021-03-03 21:04] VITALS: BMI 32.8
[2021-03-03] MEDS: NA CHLORIDE 0.9% 1,000 ML IV SCH (21:04)
[2021-03-03] MEDS ORDERED: ONDANSETRON 4 MG/2 ML VIAL IV PRN (21:04)
[2021-03-04] MEDS ORDERED: TRAMADOL HCL 50 MG TAB PO PRN (03:39)
[2021-03-04 06:25] LABS: Absolute Lymphocytes (CBC) 1.1 K/uL (0.7-4.9); Hematocrit 30.8 % (39.6-49.0); Lymphocytes % 18.2 % (15.3-44.8); MPV 8.4 fL (7.6-11.3); RBC Red Blood Cell Count 3.25 M/uL (4.33-5.43)
[2021-03-04 06:44] LABS: Albumin 2.9 g/dL (3.4-5.0); Bilirubin Total 0.5 mg/dL (0.2-1.0); Magnesium 2.2 mg/dL (1.8-2.4); Potassium 4.5 mmol/L (3.5-5.1); Protein, Total 7.1 g/dL (6.4-8.2); Thyroid Stimulating Hormone 1.54 uIU/mL (0.360-3.740); Troponin I 0.03 ng/mL (0.0-0.045)
[2021-03-04] MEDS: MEMANTINE HCL 10 MG TABLET PO SCH ×2 (08:22→21:06)
[2021-03-04] MEDS: CYANOCOBALAMIN 1,000 MCG TAB PO SCH (08:22)
[2021-03-04] MEDS: ASPIRIN EC 81 MG TAB PO SCH (08:22)
[2021-03-04] MEDS: SENOSIDES 8.6 MG TAB PO SCH (08:22)
[2021-03-04] MEDS: ASCORBIC ACID 500 MG TABLET PO SCH (08:22)
[2021-03-04] MEDS: LEVOTHYROXINE SOD 0.05 MG TABLET PO SCH (08:23)
[2021-03-04] MEDS: RIVAROXABAN 15 MG TABLET PO SCH (08:23)
[2021-03-04] MEDS: ZINC SULFATE 220 MG CAP PO SCH (08:23)
[2021-03-04] MEDS: TAMSULOSIN 0.4 MG SR CAP PO SCH (08:23)
[2021-03-04] MEDS: ISOSORBIDE MONO SR 30 MG TAB PO SCH (08:23)
[2021-03-04] MEDS: AMLODIPINE 5 MG TAB PO SCH (08:23)
[2021-03-04] MEDS: HYDROCORTISONE 1 % CREAM 30GM TOP SCH ×2 (08:49→21:00)
--- NOTE | 2021-03-04 08:59 | EKG ---
Test Date: 2021-03-03 Test Time: 17:22:06 [place]: TW MEASUREMENT RESULTS: Intervals: Rate: 86 MT: 164 QRSD: 148 QT: 410 QTc: 490 [place]: P: 59 MT: 164 QRS: -61 T: 72 INTERPRETIVE STATEMENTS: Normal sinus rhythm Right bundle branch block Left anterior fascicular block Bifascicular block Left ventricular hypertrophy with repolarization abnormality Cannot rule out Septal infarct, age undetermined Abnormal ECG Compared to ECG 08/07/2019 06:12:17 Right bundle-branch block now present Left anterior fascicular block now present Bifascicular block now present Left ventricular hypertrophy now present Early repolarization now present Myocardial infarct finding now present Atrial fibrillation no longer present Electronically Signed On 03-04-21 08:57:21 CDT by Dominic Garcia
[2021-03-04] MEDS ORDERED: DRISDOL (VITAMIN D=ERGOCALCIFEROL) 50000 UNIT CAP PO SCH (09:00)
[2021-03-04] MEDS ORDERED: TRAZODONE 50 MG TABLET PO SCH ×2 (09:00→21:00)
[2021-03-04] MEDS ORDERED: ENOXAPARIN 40 MG/0.4 ML SQ SCH (09:00)
[2021-03-04] MEDS: NA CHLORIDE 0.9% 1,000 ML IV SCH ×2 (10:24→16:19)
[2021-03-04] MEDS ORDERED: LORazepam 2 MG/ML VIAL IV ONE (11:26)
--- NOTE | 2021-03-04 12:50 | RAD REPORT ---
EXAM DESCRIPTION: US - CP - 03/04/2021 12:41 pm CLINICAL HISTORY: syncope/collapse COMPARISON: Neck Angio dated 03/03/2021 TECHNIQUE: Real-time sonographic evaluation of both carotid systems was performed. Doppler interroga tion was performed with waveform tracing bilaterally. FINDINGS: Normal high resistance waveforms are noted in both external carotid arteries. The common c arotid arteries and internal carotid arteries show normal low resistance waveforms. No significant plaque formation is seen. Peak systolic and end diastolic velocity values and the ICA/ CCA ratios are in the non-hemodynamically significant range. Antegrade flow seen in both vertebral arteries. IMPRESSION: No significant atherosclerotic changes noted. No evidence of a hemodynamically significant stenosis.
[2021-03-04] MEDS ORDERED: ATORVASTATIN 10 MG TAB PO SCH (21:00)
[2021-03-05] MEDS: NA CHLORIDE 0.9% 1,000 ML IV SCH (00:18)
[2021-03-05 05:13] LABS: Basophils % 1.1 % (0-1.3); Hematocrit 30.3 % (39.6-49.0); MPV 8.1 fL (7.6-11.3)
[2021-03-05 05:33] LABS: Albumin 2.8 g/dL (3.4-5.0); Bilirubin Total 0.6 mg/dL (0.2-1.0); Magnesium 2.1 mg/dL (1.8-2.4); Potassium 4.2 mmol/L (3.5-5.1); Protein, Total 6.4 g/dL (6.4-8.2)
[2021-03-05] MEDS: LEVOTHYROXINE SOD 0.05 MG TABLET PO SCH (07:30)
--- NOTE | 2021-03-05 08:07 | ECHO ---
HEIGHT: 5 ft 10 in WEIGHT: 229 lb 0 oz DATE OF STUDY: 03/04/[address]: Misael Sales NP 2-DIMENSIONAL: YES M.MODE: YES DOPPLER: YES COLOR FLOW: YES TDS: YES PORTABLE: DEFINITY: BUBBLE STUDY: DIAGNOSIS: SYNCOPE, COLLAPSE CARDIAC HISTORY: CATHERIZATION: NO SURGERY: NO PROSTHETIC VALVE: NO PACEMAKER: NO MEASUREMENTS (cm) DIASTOLIC (NORMALS) SYSTOLIC (NORMALS) IVSd (0.6-1.2) LA Diam (1.9-4.0) LVEF >65% LVIDd (3.5-5.7) LVIDs (2.0-3.5) %FS % LVPWd (0.6-1.2) Ao Diam (2.0-3.7) 2 DIMENSIONAL ASSESSMENT: RIGHT ATRIUM: NORMAL LEFT ATRIUM: NORMAL RIGHT VENTRICLE: NORMAL LEFT VENTRICLE: NORMAL TRICUSPID VALVE: NORMAL MITRAL VALVE: NORMAL PULMONIC VALVE: NORMAL AORTIC VALVE: NORMAL PERICARDIAL EFFUSION: NONE AORTIC ROOT: NORMAL LEFT VENTRICULAR WALL MOTION: NORMAL DOPPLER/COLOR FLOW: NORMAL COMMENTS: HYPERDYNAMIC LEFT VENTRICLE; EJECTION FRACTION >60%. NORMAL WALL MOTION. POOR STUDY. TECHNOLOGIST: GETACHEW JOAQUIN
[2021-03-05] MEDS: ASPIRIN EC 81 MG TAB PO SCH (08:22)
[2021-03-05] MEDS: TAMSULOSIN 0.4 MG SR CAP PO SCH (08:22)
[2021-03-05] MEDS: ZINC SULFATE 220 MG CAP PO SCH (08:22)
[2021-03-05] MEDS: ASCORBIC ACID 500 MG TABLET PO SCH (08:23)
[2021-03-05] MEDS: CYANOCOBALAMIN 1,000 MCG TAB PO SCH (08:24)
[2021-03-05] MEDS: AMLODIPINE 5 MG TAB PO SCH (08:25)
[2021-03-05] MEDS: MEMANTINE HCL 10 MG TABLET PO SCH (08:25)
[2021-03-05] MEDS: ISOSORBIDE MONO SR 30 MG TAB PO SCH (08:25)
[2021-03-05] MEDS: RIVAROXABAN 15 MG TABLET PO SCH (08:26)
[2021-03-05] MEDS: HYDROCORTISONE 1 % CREAM 30GM TOP SCH (08:26)
[2021-03-05] MEDS: SENOSIDES 8.6 MG TAB PO SCH (08:26)
[2021-03-05 10:38] VITALS: O2SAT 94
--- NOTE | 2021-03-05 11:07 | P.DS ---
Discharge Date: 03/05/21 Primary Care Provider: [facility] doctor Disposition: TRANSFER TO SNF - MEDICAL Discharge Condition: GOOD Reason for Admission: Syncope and collapse, lactic acidosis Brief History of Present Illness: 89-year-old -[place] male with history of dementia, hypertension, hypothyroidism, UTI, DVT presents emergency department for syncope and collapse. Patient reportedly slumped over at dining room table at [facility], staff performed chest compressions for approximately 2 to 3 minutes and patient slowly began regaining consciousness. Upon arrival of EMS patient was drowsy but awake, by time patient was at hospital he was back to his baseline mental status per [facility]. Patient was evaluated in the emergency department labs were significant for hemoglobin one-point hematocrit 35.8 chloride 109 creatinine 1.6 GFR 50 lactic acid 9.4 alk phos 141 BNP 675 urinalysis pending Covid test pending. Patient currently at baseline mental status vital signs are stable, CT head pending. ED prior wishes to admit for further evaluation and management of syncope/collapse, lactic acidosis. Hospital Course: Patient's lactic acid improved. Patient is clinically doing much better. Most likely arrhythmia. Patient will need a event monitor as an outpatient. At this time, patient is stable for discharge home. Vital Signs/Physical Exam: Temp Pulse Resp BP Pulse Ox 98.9 F 79 16 139/71 94 03/05/21 08:00 03/05/21 08:25 03/05/21 09:25 03/05/21 08:25 03/05/21 09:25 General: Alert, In no apparent distress, Demented Laboratory Data at Discharge: WBC 5.00 K/uL (4.3-10.9) 03/05/21 05:04 Hgb 9.6 g/dL (13.6-17.9) L 03/05/21 05:04 Hct 30.3 % (39.6-49.0) L 03/05/21 05:04 Plt Count 218 K/uL (152-406) 03/05/21 05:04 PT 17.9 SECONDS (9.5-12.5) H 03/03/21 17:45 INR 1.55 03/03/21 17:45 APTT 37.3 SECONDS (24.3-36.9) H 03/03/21 17:45 Sodium 145 mmol/L (136-145) 03/05/21 05:04 Potassium 4.2 mmol/L (3.5-5.1) 03/05/21 05:04 BUN 16 mg/dL (7-18) 03/05/21 05:04 Creatinine 1.21 mg/dL (0.55-1.3) 03/05/21 05:04 Glucose 83 mg/dL (74-106) 03/05/21 05:04 Magnesium 2.1 mg/dL (1.8-2.4) 03/05/21 05:04 Total Bilirubin 0.6 mg/dL (0.2-1.0) 03/05/21 05:04 AST 16 U/L (15-37) 03/05/21 05:04 ALT 23 U/L (12-78) 03/05/21 05:04 Alkaline Phosphatase 105 U/L (45-117) 03/05/21 05:04 Troponin I 0.03 ng/mL (0.0-0.045) 03/04/21 06:09 Triglycerides 65 mg/dL (<150) 03/04/21 06:09 Cholesterol 130 mg/dL (<200) 03/04/21 06:09 HDL Cholesterol 36 mg/dL (40-60) L 03/04/21 06:09 Cholesterol/HDL Ratio 3.61 03/04/21 06:09 Amylase 45 U/L (25-115) 03/03/21 17:45 Lipase 248 U/L (73-393) 03/03/21 17:45 Home Medications: Amlodipine [Norvasc*] 5 mg PO DAILY 11/21/18 Aspirin [Aspir-Low] 1 tab PO DAILY 11/21/18 Cyanocobalamin (Vitamin B-12) [B-12] 500 mcg PO DAILY 11/21/18 Isosorbide Mononitrate [Isosorbide Mononitrate ER] 1 tab PO DAILY 11/21/18 Levothyroxine Sodium 1 tab PO DAILY 11/21/18 Lovastatin 10 mg PO BEDTIME 11/21/18 Memantine HCl [Namenda*] 10 mg PO BID 06/05/19 Rivaroxaban [Xarelto*] 15 mg PO DAILY 06/05/19 Sennosides [Senna] 8.6 mg PO DAILY 06/05/19 Ascorbic Acid 500 mg PO DAILY 03/04/21 Cefdinir [Cefdinir*] 300 mg PO BID 03/04/21 Cholecalciferol (Vitamin D3) [Vitamin D3] 1,250 mcg PO EVERY 7TH DAY 03/04/21 Furosemide [Lasix] 20 mg PO DAILY 03/04/21 Hydrocortisone [Cortisone] 1 david TOP BID 03/04/21 Tamsulosin HCl [Flomax] 0.4 mg PO DAILY 03/04/21 Tramadol HCl [Ultram] 50 mg PO Q6H PRN 03/04/21 Trazodone [Desyrel*] 50 mg PO DAILY 03/04/21 Zinc Sulfate [Zinc Sulfate*] 1 tab PO DAILY 03/04/21 Metoprolol Tartrate [Lopressor] 25 mg PO BID #60 tab 03/05/21 New Medications: Metoprolol Tartrate [Lopressor] 25 mg PO BID #60 tab Physician Discharge Instructions: OK TO DC IV AND DC to the [facility] FOLLOW-UP WITH PRIMARY CARE PROVIDER IN 1-2 WEEKS FOLLOW-UP WITH CARDIOLOGY IN 1-2 WEEKS for stress testing and an event monitor RETURN TO THE ER IF symptoms worsen CALL or TEXT DR. ROBERTS AT [phone] IF ANY QUESTIONS REGARDING HOSPITAL STAY. PLEASE CALL THE FLOOR AT [phone] IF ANY MEDICATION OR NURSING QUESTIONS. Diet: AHA Activity: Fall precautions Followup: [facility] [Provider Group] - 1-2 Weeks (call to schedule an appointment ) Time spent managing pt's care (in minutes): 35
[2021-03-05 12:04] VITALS: BP 123/60; TEMP 98.2
--- NOTE | 2021-03-06 15:05 | PN ---
Date of Progress Note: 03/05/2021 Mr. Sutton is 89. He came in with syncope. Has an extensive workup including normal echo, normal MRI and MRA of the brain. He had a normal x-ray, normal CT of his head. He is positive for COVID. He w as dehydrated, I believe. He was hydrated overnight. This morning, he was completely asymptomatic. I would continue his present regimen, although I do not see the need for Imdur. I would discontinue that because that may contribute to orthostatic hypotension. Continue his aspirin, Norvasc, levothy roxine, Xarelto, and he can go home whenever it is okay with Dr. Cabrera. STEPHANIE/CICI Voice ID: [id number] Report ID: [id number]
--- NOTE | 2021-03-06 15:54 | CON ---
Date of Consultation: 03/04/2021 Reason For Consultation: Syncope. History Of Present Illness: Mr. Sutton is 89. Has a history of dyslipidemia, DVT, hypothyroidism, and hypertension. Came in with positive COVID, although he had a negative chest x-ray, but he had come in with syncope. No chest pain reported. No palpitations reported. Denied any fever or chills. De nied any dizziness or nausea or vomiting. Denied PND, orthopnea, pedal edema. By the time I saw him , he had a negative CT of his head, negative chest x-ray. He had a negative echo and negative MRI. Carotid Doppler was negative. MRA showed minimal carotid plaques. He was slightly dehydrated with a creatinine of 1.34. Past Medical History: As stated above. Allergies: NONE. Medications: Include Norvasc, aspirin, levothyroxine, Xarelto, and Imdur. Review of Systems: Negative. Social History: Negative. Family History: Noncontributory. Physical Examination: General: He was alert and oriented x3, pleasant. No acute distress. Vital Signs: Stable, afebrile. HEENT: Negative. Neck: Supple with no bruit. Chest: Clear. Cardiac: Revealed an aortic sclerosis murmur. No gallops or rubs. Abdomen: Benign. Extremities: Revealed no clubbing, cyanosis, or edema. Diagnostic Data: As stated above. Impression And Plan: Syncope, most likely secondary to orthostatic hypotension and dehydration. We will hydrate him, observe him overnight and see how he does. Continue his present regimen. He has a history of deep vein thrombosis, on Xarelto, chronic. His hypertension, dyslipidemia, and hypothyro idism are treated adequately. STEPHANIE/CICI Voice ID: [id number] Report ID: [id number]
--- NOTE | 2021-03-11 01:34 | P.PN ---
Subjective Date of Service: 03/04/21 Patient is clinically more awake and alert. Lactic acid has improved. Continue with gentle hydration. Patient's mentation is much better. May need further outpatient cardiac workup with an event monitor. No abnormal arrhythmias. Review of Systems 10-point ROS is otherwise unremarkable Physical Examination - Vital Signs Temperature: 98.2 F Blood Pressure: 123/60 Pulse: 77 Respirations: 16 Pulse Ox (%): 100 - Physical Exam General: Alert, In no apparent distress, Demented HEENT: Atraumatic, PERRLA, EOMI Neck: Supple, JVD not distended Respiratory: Clear to auscultation bilaterally, Normal air movement Cardiovascular: Regular rate/rhythm, Normal S1 S2 Gastrointestinal: Normal bowel sounds, Soft and benign, Non-distended, No tenderness Musculoskeletal: No clubbing, No swelling, No tenderness Neurological: Sensation intact, Cranial nerves 3-12 intact - Studies Medications List Reviewed: Yes Assessment & Plan - Problems (Diagnosis) (1) Syncope and collapse Status: Acute (2) Lactic acidosis Status: Acute (3) Alzheimer's dementia Status: Acute (4) Hypernatremia Status: Acute (5) Infection due to ESBL-producing Escherichia coli Status: Acute - Plan Plan: 1. Echocardiogram 2. Monitor on telemetry 3. Monitor electrolytes 4. Cardiology consultation 5. Monitor lactic acid 6. Hydration 7. GI and DVT prophylaxis Discharge Plan: Home Plan to discharge in: Greater than 2 days - Advance Directives Does patient have a Living Will: No Does patient have a Durable POA for Healthcare: No - Code Status/Comfort Care Code Status Assessed: Yes Code Status: Full Code Critical Care: No Time Spent Managing PTS Care (In Minutes): 35
== END 2021-03-05 15:00 | DRG 312 ==
LOC: ER 17:20 → ERHOLD 19:40 → 4TH 20:29
PROVIDERS: ADMIT Hospitalist; ATTEND Hospitalist
DX: I95.1 Orthostatic hypotension (principal); U07.1 COVID-19; E87.2 Acidosis; E87.0 Hyperosmolality and hypernatremia; E86.0 Dehydration; I10 Essential (primary) hypertension; E03.9 Hypothyroidism, unspecified; G30.9 Alzheimer's disease, unspecified; F02.80 Dementia in other diseases classified elsewhere, unspecified severity, without behavioral disturbance, psychotic disturbance, mood disturbance, and anxiety; Z86.718 Personal history of other venous thrombosis and embolism
CPT/HCPCS: 36415; 70450; 70496; 70498; 71045; 72125; 80048; 80053; 80061; 80076; 80307; 80320; 81003; 81015; 82150; 82550; 82553; 83605; 83690; 83735; 83880; 84145; 84439; 84443; 84484; 85025; 85610; 85730; 87040; 87077; 87086; 87088; 87186; 87205; 93005; 93306; 93880; 96374; 96375; 99285; J0692; J3370; J7030; J7050; Q9967; U0003

== ENCOUNTER 2021-05-20 15:26 | Emergency (ER) | payer OTHER ==
--- OUTSIDE RECORDS SUMMARY | 2021-05-20 15:28 | XMS REPORT | Continuity of Care Document ---
:1930 Author Organization [facility] t Address [address] [place] [address] Care Team Providers Name Role Phone LILIAN_Connor Attending Clinician Unavailable LILIAN_L Admitting Clinician Unavailable Payers Payer Name Policy Type Policy Number Effective Date Expiration Date S joaquim [employer] - MEDICARE [id number] [facility] MEDICARE DIRECT RX (MEDICARE REPLACEMENT PFFS) Problems This patient has no known problems. Allergies, Adverse Reactions, Alerts This patient has no known allergies or adverse reactions. Medications This patient has no known medications. Procedures This patient has no known procedures. Encounters Start End Encounter Admission Attending Care Care Encounter Source Date/Time Date/Time Type Type Clinicians Facility Department ID 2020-08-20 2020-08-20 Outpatient LILIAN_L [facility] [id number] [place] 10:46:00 10:46:00 [facility] Results This patient has no known results.
--- NOTE | 2021-05-20 16:03 | RAD REPORT ---
EXAM DESCRIPTION: CT - [id number] - 05/20/2021 3:54 pm CLINICAL HISTORY: Trauma, head and neck injury. fall, possible LOC COMPARISON: Neck Angio dated 03/03/2021; Head C Spine Mpr Wo Con dated 03/03/2021; Head C Spine Mpr Wo Con dated 08/31/2019 TECHNIQUE: Axial 5 mm thick images of the head were obtained. Axial 2 mm thick images of the cervical spine were obtained with sagittal and coronal reconstruction images generated and reviewed. All CT scans are performed using dose optimization technique as appropriate and may include automated exposure control or mA/KV adjustment according to patient size. FINDINGS: CT HEAD WITHOUT CONTRAST: No acute hemorrhage, hydrocephalus or extra-axial collection is identified.Moderate generalized brain atrophy is present with moderate periventricular and deep white matter chronic microvascular ischemi c changes.No areas of brain edema or midline shift. The paranasal sinuses and mastoids are clear.The calvarium is intact. CT CERVICAL SPINE WITHOUT CONTRAST: No fracture or subluxation.Mild lower cervical degenerative changes.No prevertebral soft tissues swel ling is identified. IMPRESSION: No acute intracranial or cervical spine findings.
--- NOTE | 2021-05-20 16:54 | ER ---
Nurse's Notes [facility] Name: Sly Sutton Age: 89 yrs Sex: Male : 1930 Arrival Date: 05/20/2021 Time: 15:27 Bed 9 Private MD: Diagnosis: Fall from bed, initial encounter Presentation: 05/20 15:35 Chief complaint: EMS states: Pt from [facility], fell out of bed, found on the floor alert, jl7 unsure of how he fell out of bed, unsure if he hit his head, no signs of injury noted. Care prior to arrival: None. Mechanism of Injury: Fall out of bed. Trauma event details: Injury occurred in the county of Injury occurred: in an institution. Injury occurred: May 20, 2021 Injury occurred at: 15:00. 15:35 Acuity: FIORELLA 3 jl7 15:35 Method Of Arrival: EMS: [facility] 15:52 Coronavirus screen: At this time, the client does not indicate any symptoms associated jl with coronavirus-19. Ebola Screen: No symptoms or risks identified at this time. Initial Sepsis Screen: Does the patient meet any 2 criteria? No. Patient's initial sepsis screen is negative. Does the patient have a suspected source of infection? No. Patient's initial sepsis screen is negative. Risk Assessment: Do you want to hurt yourself or someone else? Patient reports no desire to harm self or others. Onset of symptoms was May 20, 2021 at 15:00. Trauma Activation: Not Applicable Physician: ED Physician; Name: ; Notified At: ; Arrived At: Physician: General Surgeon; Name: ; Notified At: ; Arrived At: Physician: Radiology; Name: ; Notified At: ; Arrived At: Physician: Respiratory; Name: ; Notified At: ; Arrived At: Physician: Lab; Name: ; Notified At: ; Arrived At: Historical: - Allergies: 15:59 No Known Allergies; jl7 - Home Meds: 15:52 Xarelto 15 mg Oral tab daily [Active]; Multiple Vitamins with Iron Oral chew [Active]; jl7 senna 8.6 mg Oral cap 1 caps once daily [Active]; amlodipine 5 mg tab 1 tab once daily [Active]; aspirin 81 mg Oral chew 1 tab once daily [Active]; Flomax 0.4 mg Oral cp24 1 cap once daily [Active]; levothyroxine 50 mcg tab 1 tab once daily [Active]; Namenda 10 mg Oral tab 1 tab 2 times per day [Active]; isosorbide mononitrate 30 mg Oral Tb24 1 tab once daily [Active]; lovastatin 10 mg Oral tab once daily [Active]; - PMHx: 15:52 Dementia; DVT; Hyperlipidemia; Hypertension; Hypothyroidism; UTI; pressure ulcer of jl7 heel; confusional arousals; DNR; - Immunization history:: Client reports receiving the 2nd dose of the Covid vaccine. - Immunization history: Last tetanus immunization: unknown. - Social history:: Smoking status: Patient denies any tobacco usage or history of. Screenin:35 Abuse screen: Denies threats or abuse. Denies injuries from another. Tuberculosis jl7 screening: No symptoms or risk factors identified. 16:16 Nutritional screening: No deficits noted. Fall Risk Fall in past 12 months (25 points). jl7 Secondary diagnosis (15 points) dementia, Ambulatory Aid- None/Bed Rest/Nurse Assist (0 pts). Gait- Impaired (20 pts.). Mental Status- Overestimates/Forgets Limitations (15 pts.). Total Garcia Fall Scale indicates High Risk Score (45 or more points). Fall prevention measures have been instituted. Side Rails Up X 2 Placed Close to Nursing Station Frequent Obs/Assessments Occuring. Primary Survey: 15:35 NO uncontrolled hemorrhage observed. A: The patient is alert. Airway: patent. jl7 Breathing/Chest: Respiratory pattern: regular, Respiratory effort: spontaneous, unlabored, Chest inspection: symmetrical rise and fall of the chest. Circulation: Heart tones present. Pulses: palpable right radial artery and left radial artery. Skin color: pink, Skin temperature: warm. Disability Alert. Exposure/Environment: All clothing and personal items were removed. Forensic evidence collection is not deemed to be indicated at this time. Items placed in patient belonging bag. There is no evidence of uncontrolled external bleeding. No obvious injuries are noted at this time. A warming method has been applied: A warm blanket has been provided to the patient. Assessment: 15:35 Reassessment: Pt transported to CT. 7 16:16 Reassessment: Pt returned from CT. Pt's brief changed and pt cleaned of incontinence. [facility] 17:04 Reassessment: Report called to [facility], Hortensia Pruitt RN. Pt is ready to be transported jl7 back to facility and [facility] does not provide transportation and [facility] will need to arrange transportation. oxyacetylene torch operator notified. 18:26 Reassessment: Refusing vital signs. sv1 Vital Signs: 15:35 BP 116 / 67; Pulse 62; Resp 14; Temp 96.9; Pulse Ox 98% on R/A; Weight 93.89 kg; Pain jl7 0/10; 16:16 BP 97 / 61; Pulse 56; Resp 15; Pulse Ox 98% ; jl7 16:57 BP 110 / 76; Pulse 58; Resp 15; Pulse Ox 98% ; jl7 [place] Coma Score: 15:35 Eye Response: to voice(3). Verbal Response: incomprehensible(2). Motor Response: jl7 localizes pain(5). Total: 10. 16:16 Eye Response: to voice(3). Verbal Response: incomprehensible(2). Motor Response: jl7 localizes pain(5). Total: 10. 16:57 Eye Response: to voice(3). Verbal Response: incomprehensible(2). Motor Response: jl7 localizes pain(5). Total: 10. 15:35 Pt is at baseline jl7 Trauma Score (Adult): 15:35 Eye Response: to voice(0); Verbal Response: incomprehensible(0); Motor Response: jl7 localizes pain(1); Systolic BP: > 89 mm Hg(4); Respiratory Rate: 10 to 29 per min(4); Sravani Score: 10; Trauma Score: 9; Pt is at baseline ED Course: 15:27 Patient arrived in ED. iw 15:35 Marino Landry PA is PHCP. jr8 15:35 Felix Wick MD is Attending Physician. jr8 15:35 Patient has correct armband on for positive identification. Placed in gown. Bed in low jl7 position. Call light in reach. Side rails up X2. 15:35 Arm band placed on right wrist. jl7 15:35 Patient maintains SpO2 saturation greater than 95% on room air. Thermoregulation: warm jl7 blanket given to patient. 15:47 Young Srivastava RN is Primary Nurse. jl7 15:50 Triage completed. jl7 15:54 CT Head C Spine In Process Unspecified. EDMS 16:16 Pulse ox on. NIBP on. Warm blanket given. jl7 16:24 XRAY Pelvis In Process Unspecified. EDMS Administered Medications: No medications were administered Outcome: 16:53 Discharge ordered by MD. box 18:53 Patient left the ED. kj1 Signatures: Dispatcher [employer] EDMS Christen Mijares, RN Marino Oviedo PA PA jr8 Young Srivastava RN RN jl7 Jackson, Kandis kj1 Travis Bassett, RN RN sv1
--- NOTE | 2021-05-20 16:55 | EDPHYS ---
Physician Documentation [facility] Name: Sly Sutton Age: 89 yrs Sex: Male : 1930 Arrival Date: 05/20/2021 Time: 15:27 Bed 9 Private MD: ED Physician Felix Wick HPI: 05/20 16:14 This 89 yrs old Black Male presents to ER via EMS with complaints of Fall Injury. jr8 16:14 It is unknown whether or not the patient has had similar symptoms in the past. The jr8 patient has not recently seen a physician. Is an 89-year-old male patient with history of dementia that presented to the emergency room after EMS was called out by snf staff for potential fall injury. jail relayed to EMS that patient was found out of his bed on the floor. EMS stated that patient is normally alert and oriented to person only. Patient at baseline at this time. Has no significant complaints at this time.. Historical: - Allergies: 15:59 No Known Allergies; jl7 - Home Meds: 15:52 Xarelto 15 mg Oral tab daily [Active]; Multiple Vitamins with Iron Oral chew [Active]; jl7 senna 8.6 mg Oral cap 1 caps once daily [Active]; amlodipine 5 mg tab 1 tab once daily [Active]; aspirin 81 mg Oral chew 1 tab once daily [Active]; Flomax 0.4 mg Oral cp24 1 cap once daily [Active]; levothyroxine 50 mcg tab 1 tab once daily [Active]; Namenda 10 mg Oral tab 1 tab 2 times per day [Active]; isosorbide mononitrate 30 mg Oral Tb24 1 tab once daily [Active]; lovastatin 10 mg Oral tab once daily [Active]; - PMHx: 15:52 Dementia; DVT; Hyperlipidemia; Hypertension; Hypothyroidism; UTI; pressure ulcer of jl7 heel; confusional arousals; DNR; - Immunization history:: Client reports receiving the 2nd dose of the Covid vaccine. - Immunization history: Last tetanus immunization: unknown. - Social history:: Smoking status: Patient denies any tobacco usage or history of. ROS: 16:14 Unable to obtain ROS due to baseline dementia. jr8 Exam: 16:14 Head/Face: Normocephalic, atraumatic. Eyes: Pupils equal round and reactive to light, jr8 extra-ocular motions intact. Lids and lashes normal. Conjunctiva and sclera are non-icteric and not injected. Cornea within normal limits. Periorbital areas with no swelling, redness, or edema. Neck: Trachea midline, no thyromegaly or masses palpated, and no cervical lymphadenopathy. Supple, full range of motion without nuchal rigidity, or vertebral point tenderness. No Meningismus. Chest/axilla: Normal chest wall appearance and motion. Nontender with no deformity. No lesions are appreciated. Cardiovascular: Regular rate and rhythm with a normal S1 and S2. No gallops, murmurs, or rubs. Normal PMI, no JVD. No pulse deficits. Respiratory: Lungs have equal breath sounds bilaterally, clear to auscultation and percussion. No rales, rhonchi or wheezes noted. No increased work of breathing, no retractions or nasal flaring. Abdomen/GI: Soft, non-tender, with normal bowel sounds. No distension or tympany. No guarding or rebound. No evidence of tenderness throughout. Back: No spinal tenderness. No costovertebral tenderness. Full range of motion. Skin: Warm, dry with normal turgor. Normal color with no rashes, no lesions, and no evidence of cellulitis. MS/ Extremity: Pulses equal, no cyanosis. Neurovascular intact. Full, normal range of motion. 16:14 Neuro: Orientation: to person, Mentation: able to follow commands, confused, Motor: moves all fours, Sensation: no obvious gross deficits, seizure activity, is not displayed by the patient, Abnormal movements: there are no abnormal movements. Vital Signs: 15:35 BP 116 / 67; Pulse 62; Resp 14; Temp 96.9; Pulse Ox 98% on R/A; Weight 93.89 kg; Pain jl7 0/10; 16:16 BP 97 / 61; Pulse 56; Resp 15; Pulse Ox 98% ; jl7 16:57 BP 110 / 76; Pulse 58; Resp 15; Pulse Ox 98% ; jl7 [place] Coma Score: 15:35 Eye Response: to voice(3). Verbal Response: incomprehensible(2). Motor Response: jl7 localizes pain(5). Total: 10. 16:16 Eye Response: to voice(3). Verbal Response: incomprehensible(2). Motor Response: jl7 localizes pain(5). Total: 10. 16:57 Eye Response: to voice(3). Verbal Response: incomprehensible(2). Motor Response: jl7 localizes pain(5). Total: 10. 15:35 Pt is at baseline jl7 Trauma Score (Adult): 15:35 Eye Response: to voice(0); Verbal Response: incomprehensible(0); Motor Response: jl7 localizes pain(1); Systolic BP: > 89 mm Hg(4); Respiratory Rate: 10 to 29 per min(4); Sravani Score: 10; Trauma Score: 9; Pt is at baseline MDM: 15:35 Patient medically screened. jr8 16:53 Data reviewed: vital signs, nurses notes, radiologic studies, CT scan, plain films. jr8 Data interpreted: Pulse oximetry: on room air is 98 %. Interpretation: normal. Counseling: I had a detailed discussion with the patient and/or guardian regarding: the historical points, exam findings, and any diagnostic results supporting the discharge/admit diagnosis, radiology results, the need for outpatient follow up, a family practitioner, to return to the emergency department if symptoms worsen or persist or if there are any questions or concerns that arise at home. 05/20 15:27 Order name: CT Head C Spine; Complete Time: 16:07 iw 05/20 15:41 Order name: XRAY Pelvis; Complete Time: 17:15 jr8 Administered Medications: No medications were administered Disposition: 05/21 08:47 Co-signature as Attending Physician, Felix Wick MD I agree with the assessment and mazin plan of care. Disposition Summary: 05/20/21 16:53 Discharge Ordered Location: Home jr8 Problem: new jr8 Symptoms: are unchanged jr8 Condition: Stable jr8 Diagnosis - Fall from bed, initial encounter jr8 Followup: jr8 - With: Private Physician - When: As needed - Reason: Recheck today's complaints, Continuance of care, Re-evaluation by your physician Discharge Instructions: - Discharge Summary Sheet jr8 - Fall Prevention in the Home, Adult jr8 - Fall Prevention in Hospitals, Adult jr8 Forms: - Medication Reconciliation Form jr8 - Thank You Letter jr8 - SBAR form bd - Antibiotic Education jr8 - Prescription Opioid Use jr8 Signatures: Dispatcher [employer] Felix Negron MD MD cha Roszak, Josh, PA PA jr8 Young Srivastava, RN RN jl7
--- NOTE | 2021-05-20 16:57 | RAD REPORT ---
EXAM DESCRIPTION: RAD - Pelvis - 05/20/2021 4:24 pm CLINICAL HISTORY: PAIN COMPARISON: No comparisons FINDINGS: Prominent diffuse osteopenia is noted. No definitive fracture is seen. If pain persists or progresses, MR imaging would be helpful for further evaluation given the osteopenia.
[2021-05-20 19:03] VITALS: TEMP 96.9; O2SAT 98
[2021-05-20 19:06] VITALS: BP 110/76
== END 2021-05-20 18:53 | disposition home or self-care (01) ==
LOC: ER 15:26
DX: Z04.3 Encounter for examination and observation following other accident (principal); W06.XXXA Fall from bed, initial encounter; Y92.129 Unspecified place in nursing home as the place of occurrence of the external cause; F03.90 Unspecified dementia, unspecified severity, without behavioral disturbance, psychotic disturbance, mood disturbance, and anxiety; I10 Essential (primary) hypertension; Z79.01 Long term (current) use of anticoagulants; Z79.82 Long term (current) use of aspirin
CPT/HCPCS: 70450; 72125; 72170; 99284

== ENCOUNTER 2021-05-29 13:37 | Inpatient (IN) | payer OTHER ==
--- OUTSIDE RECORDS SUMMARY | 2021-05-29 13:39 | XMS REPORT | Continuity of Care Document ---
:1930 Author Organization [facility] t Address [address] [place] [address] Care Team Providers Name Role Phone LILIAN_Connor Attending Clinician Unavailable LILIAN_L Admitting Clinician Unavailable Payers Payer Name Policy Type Policy Number Effective Date Expiration Date S joaquim U[employer] - MEDICARE [id number] [facility] MEDICARE DIRECT RX (MEDICARE REPLACEMENT PFFS) Problems [...]
[2021-05-29 14:48] LABS: Absolute Lymphocytes (CBC) 2.6 K/uL (0.7-4.9); Hematocrit 41.2 % (39.6-49.0); Lymphocytes % 25.6 % (15.3-44.8); MPV 12.2 fL (7.6-11.3); RBC Red Blood Cell Count 4.16 M/uL (4.33-5.43)
--- NOTE | 2021-05-29 14:51 | RAD REPORT ---
EXAM DESCRIPTION: RAD - Chest Single View - 05/29/2021 2:34 pm CLINICAL HISTORY: AMS, acute kidney disease COMPARISON: Chest Single View dated 03/03/2021; Chest Single View dated 08/31/2019; Chest Single View dated 08/09/2019; Chest Single View dated 08/06/2019 FINDINGS: Lines: None. Lungs: No evidence of edema or pneumonia. Pleural: No significant pleural effusions or pneumothorax. Cardiac: The heart size is within normal limits. Bones: No acute fractures. Other: IMPRESSION: No acute cardiopulmonary disease.
[2021-05-29 15:02] LABS: Urine Blood 2+ (Negative); Urine Glucose Negative (Negative); Urine Protein 2+ (Negative); Urine Specific Gravity 1.025 (1.005-1.030)
--- NOTE | 2021-05-29 15:02 | EDPHYS ---
Physician Documentation [facility] Name: Sly Sutton Age: 89 yrs Sex: Male : 1930 Arrival Date: 05/29/2021 Time: 13:38 Bed 16 Private MD: ED Physician Robin Garrison HPI: 05/29 14:09 This 89 yrs old Black Male presents to ER via EMS with complaints of Altered mental rn status. 14:09 The patient presents with confusion, decreased responsiveness. Onset: The rn symptoms/episode began/occurred 1 week(s) ago. Possible causes: unknown. Associated signs and symptoms: Pertinent positives: confusion. Current symptoms: In the emergency department the patient's symptoms are unchanged from the initial presentation. It is unknown whether or not the patient has had similar symptoms in the past. It is unknown whether or not the patient has recently seen a physician. Patient brought in by EMS from alf for altered mental status. [facility] obtained labs recently and showed sodium level of 179 and acute renal failure. Per report from alf patient has been altered for 1 week. No known trauma.. Historical: - PMHx: 13:41 confusional arousals; Dementia; DNR; UTI; Hypothyroidism; DVT; Hypertension; jl7 Hyperlipidemia; pressure ulcer of heel; - Immunization history:: Adult Immunizations up to date. - Social history:: Smoking status: unknown. - Family history:: not pertinent. - Hospitalizations: : No recent hospitalization is reported. - History obtained from: EMS. ROS: 14:09 Unable to obtain ROS due to altered mental status. rn Exam: 14:09 Constitutional: This is a well developed, well nourished patient who is awake, very rn slow to respond Head/Face: Normocephalic, atraumatic. Eyes: Periorbital areas with no swelling, redness, or edema. ENT: Dry mucous membranes Cardiovascular: Regular rate and rhythm. No pulse deficits. Respiratory: No increased work of breathing, no retractions or nasal flaring. Abdomen/GI: Soft, nontender, nondistended Skin: Warm, dry, poor skin turgor MS/ Extremity: Pulses equal, no cyanosis. Neuro: Awake, slow to respond, does not answer questions Vital Signs: 13:38 BP 148 / 75; Pulse 73; Resp 18; Temp 98.7; Pulse Ox 100% ; jl7 14:45 BP 136 / 70; Pulse 56; Resp 18; Pulse Ox 95% on R/A; jh6 20:11 BP 109 / 58; Pulse 60; Resp 14; Temp 97.1; Pulse Ox 100% 0 lpm ; sv1 22:05 BP 107 / 53; Pulse 62; Resp 16; Pulse Ox 96% 0 lpm ; sv1 MDM: 13:44 Patient medically screened. rn 15:00 Differential Diagnosis: electrolyte abnormality, pneumonia, UTI, volume depletion. Data rn reviewed: vital signs, nurses notes, lab test result(s), and as a result, I will admit patient. Counseling: I had a detailed discussion with the patient and/or guardian regarding: the historical points, exam findings, and any diagnostic results supporting the discharge/admit diagnosis, lab results, the need for further work-up and treatment in the hospital. Response to treatment: There is no appreciated change of the patient's symptoms at this time, and as a result, I will admit patient. Admission orders: after a detailed discussion of the patient's condition and case, the admit orders are written by me. ED course: Consulted with Dr. Hardy, will see patient, admitted to Dr. Cabrera.. 05/29 13:48 Order name: CBC with Diff rn 05/29 13:48 Order name: Basic Metabolic Panel; Complete Time: 16:08 rn 05/29 13:48 Order name: Urine Microscopic Only; Complete Time: 16: rn 05/29 13:48 Order name: Magnesium; Complete Time: 16: rn 05/29 13:49 Order name: BNP; Complete Time: 16: rn 05/29 14:19 Order name: Uric Acid; Complete Time: 16: rn 05/29 14:19 Order name: Urine Creatinine; Complete Time: 16: rn 05/29 14:19 Order name: Urine Potassium Random; Complete Time: 16:08 rn 05/29 14:19 Order name: Urine Sodium Random; Complete Time: 16:08 rn 05/29 15:01 Order name: Urine Dipstick-Ancillary; Complete Time: 15:08 EDMS 05/29 15:42 Order name: SARS-COV-2 RT PCR EDMS 05/29 16:04 Order name: Urine Culture EDMS 05/29 16:09 Order name: Manual Differential EDMS 05/29 13:49 Order name: EKG; Complete Time: 13:49 rn 05/29 13:49 Order name: XRAY Chest (1 view); Complete Time: 14:53 rn 05/29 18:22 Order name: CONS Physician Consult; Complete Time: 20:15 EDMS 05/29 18:22 Order name: Comprehensive Metabolic Panel EDMS 05/29 18:22 Order name: Comprehensive Metabolic Panel EDMS 05/29 18:22 Order name: Protime (+INR) EDMS 05/29 18:22 Order name: Protime (+INR) EDMS 05/29 18:22 Order name: PTT, Activated Partial Thromb EDMS 05/29 18:22 Order name: PTT, Activated Partial Thromb EDMS 05/29 18:22 Order name: NPO; Complete Time: 20:14 EDMS 05/29 18:22 Order name: CBC with Automated Diff EDMS 05/29 18:22 Order name: CBC with Automated Diff EDSC 05/29 13:48 Order name: IV Start; Complete Time: 15:03 rn 05/29 13:48 Order name: Urine Dipstick-Ancillary (obtain specimen); Complete Time: 15:03 rn 05/29 13:49 Order name: EKG - Nurse/Tech; Complete Time: 14:48 rn Administered Medications: 15:22 Drug: NS 0.9% 1000 ml Route: IV; Rate: 125 ml/hr; Site: left [facility]cubital; [facility] 22:23 Follow up: IV Status: Completed infusion sv1 15:53 Drug: Rocephin (cefTRIAXone) 1 grams Route: IV; Rate: calculated rate; Site: left [facility] antecubital; 18:20 Follow up: IV Status: Completed infusion [facility] 22:22 Follow up: Response: No adverse reaction sv1 17:40 Drug: NS 0.9% 1000 ml Route: IV; Rate: 1000 ml; Site: left antecubital; community hospital 18:18 Drug: Zofran (Ondansetron) 4 mg Route: IVP; Site: left upper arm; community hospital 20:15 Follow up: Response: No adverse reaction; Nausea is decreased sv1 22:20 Follow up: Response: No adverse reaction; Nausea is decreased sv1 Disposition Summary: 05/29/21 15:01 Hospitalization Ordered Hospitalization Status: Inpatient Admission rn Provider: Shasta Cabrera rn Location: Telemetry/MedSurg (Inpatient) rn Condition: Stable rn Problem: new rn Symptoms: are unchanged rn Bed/Room Type: Standard rn Room Assignment: 215(05/29/21 19:20) eb1 Diagnosis - Hyperosmolality and hypernatremia rn - Acute kidney failure, unspecified rn - Altered mental status, unspecified rn - UTI/ Urinary tract infection, site not specified rn Forms: - Medication Reconciliation Form rn - SBAR form rn Signatures: Dispatcher [employer] EDSC Robin Garrison MD MD rn Leal, Jahala RN RN jl7 Paige Grider RN RN eb1 Angélica Bentley RN RN jh6 Travis Bassett RN sv1 Corrections: (The following items were deleted from the chart) 15:42 13:49 CORONAVIRUS+MR.LAB.BRZ ordered. [facility] 19:20 15:01 rn eb1
--- NOTE | 2021-05-29 15:02 | ER ---
Nurse's Notes [facility] Name: Sly Sutton Age: 89 yrs Sex: Male : 1930 Arrival Date: 05/29/2021 Time: 13:38 Bed 16 Private MD: Diagnosis: Hyperosmolality and hypernatremia;Acute kidney failure, unspecified;Altered mental status, unspecified;UTI/ Urinary tract infection, site not specified Presentation: 05/29 13:38 Chief complaint: EMS states: coming from [facility]; per facility pt has jl7 been weak and lethargic x1 week. Pt is normally AAOX2 at baseline but a week ago has been AAOX1 and not talking as much. Coronavirus screen: Vaccine status: Patient reports receiving the 2nd dose of the covid vaccine. Client denies travel out of the [place] in the last 14 days. At this time, the client does not indicate any symptoms associated with coronavirus-19. Ebola Screen: Patient negative for fever greater than or equal to 101.5 degrees Fahrenheit, and additional compatible Ebola Virus Disease symptoms Patient denies exposure to infectious person. Patient denies travel to an Ebola-affected area in the 21 days before illness onset. Initial Sepsis Screen: Does the patient meet any 2 criteria? No. Patient's initial sepsis screen is negative. Does the patient have a suspected source of infection? No. Patient's initial sepsis screen is negative. Risk Assessment: Do you want to hurt yourself or someone else? Patient reports no desire to harm self or others. Onset of symptoms was May 22, 2020. 13:38 Method Of Arrival: EMS: [facility] jl7 13:38 Acuity: FIORELLA 3 jl7 Triage Assessment: 13:42 General: Appears in no apparent distress. comfortable, Behavior is calm, cooperative, jl7 appropriate for age. Pain: Denies pain. Historical: - PMHx: 13:41 confusional arousals; Dementia; DNR; UTI; Hypothyroidism; DVT; Hypertension; jl7 Hyperlipidemia; pressure ulcer of heel; - Immunization history:: Adult Immunizations up to date. - Social history:: Smoking status: unknown. - Family history:: not pertinent. - Hospitalizations: : No recent hospitalization is reported. - History obtained from: EMS. Screenin:42 Abuse screen: Denies threats or abuse. Denies injuries from another. Nutritional jl7 screening: No deficits noted. Tuberculosis screening: No symptoms or risk factors identified. Fall Risk Secondary diagnosis (15 points) impaired mobility. 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 Pt alert but non verbal. pt at times will follow commands. 14:30 Neuro: Level of Consciousness is awake, obeys commands, Oriented to person, [employer] are jh6 equal bilaterally Full function in left in right arm(s) Facial symmetry appears normal, Pupils are PERRLA. Cardiovascular: No deficits noted. Respiratory: No deficits noted. GI: Abdomen is flat, non-distended, Last BM was May 29, 2021. 20:12 Reassessment: Vital signs are stable The patient is to be admitted to room 215.. sv1 22:24 Reassessment: Report called.. sv1 Vital Signs: 13:38 BP 148 / 75; Pulse 73; Resp 18; Temp 98.7; Pulse Ox 100% ; jl7 14:45 BP 136 / 70; Pulse 56; Resp 18; Pulse Ox 95% on R/A; jh6 20:11 BP 109 / 58; Pulse 60; Resp 14; Temp 97.1; Pulse Ox 100% 0 lpm ; sv1 22:05 BP 107 / 53; Pulse 62; Resp 16; Pulse Ox 96% 0 lpm ; sv1 Vitals: 14:45 Cardiac Rhythm Assessment Regular. [facility] ED Course: 13:38 Patient arrived in ED. jl7 13:41 Triage completed. jl7 13:42 Arm band placed on right wrist. jl7 13:42 Patient has correct armband on for positive identification. Bed in low position. Call jl7 light in reach. Side rails up X 1. Side rails up X2. 13:44 Robin Garrison MD is Attending Physician. rn 13:47 Angélica Bentley, MONIK is Primary Nurse. [facility] 14:34 XRAY Chest (1 view) In Process Unspecified. EDMS 14:45 Missed attempt(s): 20 gauge in right in left antecubital area. [facility] 14:48 EKG done, by ED staff, reviewed by Robin Garrison MD COVID swab sent to lab. Initial mh5 lab(s) drawn, by ED staff, sent to lab. Inserted saline lock: 18 gauge in left antecubital area, using aseptic technique. Blood collected. 14:48 Inserted saline lock: 18 gauge in left antecubital area, using aseptic technique. jh6 14:48 Straight cath inserted, using sterile technique, 16 Fr. Specimen obtained. Oxygen jh6 administration via nasal cannula \T\ 2L/min. 14:49 Warm blanket given. environmental monitoring specialist on. Pulse ox on. NIBP on. 5 15:01 Shasta Cabrera MD is Hospitalizing Provider. rn 20:12 No provider procedures requiring assistance completed. Patient admitted, IV remains in sv1 place. 20:14 CBC with Automated Diff Sent. sv1 20:14 CBC with Automated Diff Sent. sv1 20:14 PTT, Activated Partial Thromb Sent. sv1 20:14 PTT, Activated Partial Thromb Sent. sv1 20:14 Protime (+INR) Sent. sv1 20:14 Protime (+INR) Sent. sv1 20:14 Comprehensive Metabolic Panel Sent. sv1 20:14 Comprehensive Metabolic Panel Sent. sv1 Administered Medications: 15:22 Drug: NS 0.9% 1000 ml Route: IV; Rate: 125 ml/hr; Site: left antecubital; 6 22:23 Follow up: IV Status: Completed infusion sv1 15:53 Drug: Rocephin (cefTRIAXone) 1 grams Route: IV; Rate: calculated rate; Site: left [facility] antecubital; 18:20 Follow up: IV Status: Completed infusion jh6 22:22 Follow up: Response: No adverse reaction sv1 17:40 Drug: NS 0.9% 1000 ml Route: IV; Rate: 1000 ml; Site: left antecubital; [facility] 18:18 Drug: Zofran (Ondansetron) 4 mg Route: IVP; Site: left upper arm; [facility] 20:15 Follow up: Response: No adverse reaction; Nausea is decreased sv1 22:20 Follow up: Response: No adverse reaction; Nausea is decreased sv1 Outcome: 15:01 Decision to Hospitalize by Provider. rn 20:12 Admitted to Med/surg accompanied by tech, via stretcher. sv1 20:12 Condition: stable 20:12 Instructed on the need for admit. 23:19 Patient left the ED. sv1 Signatures: Dispatcher [employer] EDMS Robin Garrison MD MD rn Martinez, Maria [facility] Young Srivastava RN RN jl7 Angélica Bentley RN RN jh6 Travis Bassett RN RN sv1 Corrections: (The following items were deleted from the chart) 15:42 14:48 CORONAVIRUS+ drawn and sent. [address]
[2021-05-29] MEDS ORDERED: NA CHLORIDE 0.9% 2,000 ML ONE (15:15)
[2021-05-29 15:23] LABS: Magnesium 3.5 mg/dL (1.8-2.4); Potassium 3.8 mmol/L (3.5-5.1)
[2021-05-29] MEDS ORDERED: CEFTRIAXONE 1000 MG/VIAL ONE (15:36)
[2021-05-29 16:02] LABS: Urine Bacteria >50 /HPF (NONE SEEN); Urine RBC <5 /HPF (NONE SEEN)
[2021-05-29 16:11] LABS: Blood Morphology Comment NOT SEEN (NOT SEEN); Platelet Estimate ADEQ
[2021-05-29] MEDS ORDERED: ONDANSETRON 4 MG/2 ML VIAL ONE (18:10)
[2021-05-29] MEDS ORDERED: ONDANSETRON 4 MG/2 ML VIAL IV PRN (18:17)
[2021-05-29] MEDS ORDERED: ACETAMINOPHEN 500 MG TAB PO PRN (18:17)
[2021-05-29] MEDS ORDERED: MORPHINE 2 MG/ML SYR IV PRN (18:17)
[2021-05-29] MEDS: D5W 1,000 ML IV SCH (19:00)
[2021-05-29] MEDS: ALBUTEROL 2.5 MG/3 ML NEB SOL NEB PRN (20:48)
[2021-05-29] MEDS: IPRATROPIUM BROM 0.5MG/2.5ML NEB SCH (20:50)
[2021-05-29] MEDS ORDERED: ALBUTEROL 2.5 MG/3 ML NEB SOL ONE (21:26)
[2021-05-29] MEDS ORDERED: IPRATROPIUM BROM 0.5MG/2.5ML ONE (21:26)
[2021-05-30] MEDS: D5W 1,000 ML IV SCH ×3 (00:04→14:52)
[2021-05-30] MEDS: ALBUTEROL 2.5 MG/3 ML NEB SOL NEB PRN ×3 (02:40→21:39)
[2021-05-30] MEDS: IPRATROPIUM BROM 0.5MG/2.5ML NEB SCH ×4 (02:40→19:45)
[2021-05-30 06:43] LABS: Absolute Lymphocytes (CBC) 2.1 K/uL (0.7-4.9); Hematocrit 34.3 % (39.6-49.0); Lymphocytes % 25.6 % (15.3-44.8); MPV 11.5 fL (7.6-11.3); RBC Red Blood Cell Count 3.52 M/uL (4.33-5.43)
[2021-05-30 06:54] LABS: Protime INR 1.28
[2021-05-30 07:18] LABS: Bilirubin Total 0.3 mg/dL (0.2-1.0); Protein, Total 6.5 g/dL (6.4-8.2)
[2021-05-30 07:41] LABS: Anisocytosis 1+; Blood Morphology Comment NOTED (NOT SEEN); Platelet Estimate DECR
[2021-05-30] MEDS: D5 0.45 NS 1,000 ML IV SCH ×2 (10:47→13:15)
[2021-05-30] MEDS ORDERED: D5 0.45 NS 1,000 ML IV SCH (11:00)
--- NOTE | 2021-05-30 11:18 | P.HP ---
Certification for Inpatient Patient admitted to: Inpatient With expected LOS: >2 Midnights Patient will require the following post-hospital care: None Practitioner: I am a practitioner with admitting privileges, knowledge of patient current condition, hospital course, and medical plan of care. Services: Services provided to patient in accordance with Admission requirements found in Title 42 Section 412.3 of the Code of Federal Regulations Patient History Date of Service: 05/29/21 Reason for admission: Severe hyponatremia with altered mental status and acute kidney injury History of Present Illness: Patient is an 89-year-old gentleman who lives at [facility] and and a history of Alzheimer's dementia who is not really able to give us much history who comes into the hospital severely dehydrated. He had patient's sodium was 179. Patient is also in acute renal failure. Patient will need to be aggressively hydrated and will consult nephrology. We will need to check BMP every 6 hours. Patient will be admitted for further treatment. Will discuss with family regarding long-term plan of care. Allergies No Known Allergies Allergy (Verified 11/21/18 06:45) Home Medications: Acetaminophen [Tylenol] 2 tab PO Q8H PRN 06/02/21 Amlodipine [Norvasc*] 1 tab PO DAILY 06/02/21 Ascorbic Acid 1 tab PO DAILY 06/02/21 Aspirin [Aspirin EC] 1 tab PO DAILY 06/02/21 Cholecalciferol (Vitamin D3) [D3-50] 1 cap PO EVERY 7TH DAY 06/02/21 Cholecalciferol (Vitamin D3) [Vitamin D 1000 Iu Tab*] 2 tab PO DAILY 06/02/21 Cyanocobalamin (Vitamin B-12) [B-12] 1 tab PO DAILY 06/02/21 Doxycycline Monohydrate 1 tab PO BID 06/02/21 Isosorbide Mononitrate [Isosorbide Mononitrate ER] 1 tab PO DAILY 06/02/21 Levothyroxine [Synthroid*] 1 tab PO DAILY 06/02/21 Lovastatin 1 tab PO DAILY 06/02/21 Memantine HCl [Namenda] 1 tab PO BID 06/02/21 Rivaroxaban [Xarelto*] 1 tab PO DAILY 06/02/21 Sennosides [Senna] 1 tab PO DAILY 06/02/21 Tamsulosin HCl [Flomax] 1 tab PO BEDTIME 06/02/21 Tramadol HCl [Ultram] 1 tab PO Q12H PRN 06/02/21 - Past Medical/Surgical History Diabetic: No -: Severe Alzheimers dementia -: HTN -: Hypothyroidism -: Hyperlipidemia -: Hx of DVT on chronic anticoagulation -: Hx of BPH and prostate issues -: Hx of recurrent resistent UTI -: GERD -: Prostate procedures Psychosocial/ Personal History: Lives in [place] since September of 2018 - Family History Father Medical History: Heart disease - Social History Alcohol use: No CD- Drugs: No Caffeine use: Yes Review of Systems is unable to be obtained Physical Examination - Vital Signs Temperature: 96.7 F Blood Pressure: 118/50 Pulse: 57 Respirations: 16 Pulse Ox (%): 100 - Physical Exam General: Alert, In no apparent distress, Demented HEENT: Atraumatic, PERRLA, Mucous membr. moist/pink, EOMI, Sclerae nonicteric Neck: Supple, 2+ carotid pulse no bruit, No LAD, Without JVD or thyroid abnormality Respiratory: Clear to auscultation bilaterally, Normal air movement Cardiovascular: Regular rate/rhythm, Normal S1 S2, No murmurs Gastrointestinal: Normal bowel sounds, Soft and benign, Non-distended, No tenderness Musculoskeletal: No clubbing, No swelling, No tenderness Integumentary: No rashes Neurological: Sensation intact, Cranial nerves 3-12 intact, Abnormal gait, Abnormal speech, Abnormal strength, Abnormal affect, Dementia Lymphatics: No axilla or inguinal lymphadenopathy - Studies Laboratory Data (last 24 hrs) 05/29/21 14:52: Uric Acid 11.9 H 05/29/21 14:17: Sodium 176 H*, Potassium 3.8, BUN 172 H, Creatinine 7.31 H*, Glucose 208 H, Magnesium 3.5 H D 05/29/21 14:17: WBC 10.30, Hgb 12.3 L, Hct 41.2, Plt Count 138 L Assessment & Plan - Problems (Diagnosis) (1) Hypernatremia Current Visit: No Status: Acute (2) Acute kidney injury Current Visit: Yes Status: Acute (3) Alzheimer's dementia Current Visit: No Status: Acute (4) History of DVT (deep vein thrombosis) Current Visit: No Status: Acute (5) Metabolic encephalopathy Current Visit: No Status: Acute - Plan Plan: 1. Aggressive hydration with D5 water; patient has been given boluses of normal saline in the ER 2. Monitor renal function closely 3. Nephrology consultation 4. Strict I's and O's 5. BMP every 6 hours 6. Discuss with family regarding long-term plan of care as patient with advanced Alzheimer's dementia Discharge Plan: Penitentiary Plan to discharge in: Greater than 2 days - Advance Directives Does patient have a Living Will: No Does patient have a Durable POA for Healthcare: No - Code Status/Comfort Care Code Status Assessed: No Code Status: Do Not Attempt Resuscitat Critical Care: No Time Spent Managing PTS Care (In Minutes): 45
--- NOTE | 2021-05-30 11:58 | RAD REPORT ---
EXAM DESCRIPTION: US - Renal Ultrasound-Complete - 05/30/2021 11:38 am CLINICAL HISTORY: SALLY Flank pain COMPARISON: No comparisons FINDINGS: The kidneys are both echogenic containing multiple varying size cysts. The right kidney measures 9.2 x 4.7 x 4.5 cm. No hydronephrosis, focal mass or perinephric fluid. The left kidney measures 8.9 x 5.0 x 4.5 cm. No hydronephrosis, focal mass or perinephric fluid. Bladder debris is present with several bladder diverticulum. IMPRESSION: Bilateral echogenic kidneys are present with multiple varying size cysts. Bladder debris and multiple diverticula are present.
--- NOTE | 2021-05-30 15:29 | CON ---
Date of Consultation: 05/30/2021 Additional Consulting Physician: Dr. Garrison, ER. Reason For Consultation: Elevated BUN and creatinine, hypernatremia. History Of Present Illness: All the information has been obtained from the record as patient is nonv erbal, advanced dementia. This is 89-year-old gentleman with significant past medical history of hyp ertension, advanced dementia, hyperlipidemia. Patient was in his regular state of health. Patient h ad altered mental status in the [facility]. Patient was sent, found to have sodium 179 with elevat ion in BUN and creatinine. For that reason, we have been consulted. Patient was started on aggressi ve hydration. Sodium is still elevated. Past Medical History: Include: 1.Hypertension. 2.Hyperlipidemia. 3.UTI. 4.DVT. 5.Hypothyroidism. 6.Dementia. Allergies: NO KNOWN DRUG ALLERGIES. Home Medications: Include amlodipine, aspirin, lovastatin, Namenda, Xarelto, vitamin C, cefdinir, ch olecalciferol, Lasix, hydrocortisone, tramadol, zinc sulfate, metoprolol. Past Surgical History: Include TURP. Family History: Positive for hypertension. Social History: Lives in [facility]. Review of Systems: None obtainable. Physical Examination: General: When I saw the patient, patient was moaning, lying in the bed. Vital Signs: Blood pressure 114/48, pulse of 59, afebrile. Chest: Clear to auscultation. Heart: S1, S2. Systolic murmur. Tachycardic. Abdomen: Soft, nontender. Extremities: No edema. Neuro: Patient is moving 4 extremities. No focality. Not following commands, only moaning. Laboratory Data: WBC 8.1, H and H 10.4/34.4. Sodium 177, potassium 4, bicarb 19, chloride 149, BUN 174, creatinine 7. GFR of 9. Calcium 7.7. BNP 150. Albumin of 2. Corrected calcium is 9.3. Mike mckeon the record for the patient back in February, creatinine was 1.2, GFR 68, hemoglobin 9.6. Current Medications: The patient is on include: Albuterol, Tylenol, Zofran, D5 at 100. Renal ultrasound was done 9.2/8.9, echogenic, no hydronephrosis. Assessment And Plan: 1.Acute kidney injury secondary to prerenal, superimposed with diuresis. With severe uremia. No hy perkalemia, no acidosis. I am going to start aggressive hydration for the patient, and we will monit or the patient closely. We will monitor kidney function. If kidney function did not improve, patien t may need to start renal replacement therapy given possible the uremic symptoms. We will try to portillo id that given the patient's age and advanced dementia and we will follow up. I am going to go ahead and send for full workup. Obstructive uropathy has been ruled out and rhabdomyolysis has been ruled out. We will monitor. 2.Discontinue Lasix. 3.Acidosis, non-anion gap metabolic acidosis secondary to renal failure. We will start aggressive h ydration. No need for bicarb. 4.Hypernatremia secondary to depletional poor intake. Patient is on huge water deficit more than 6 L. I am going to bolus the patient with D5 half as the patient received 3 L of normal saline. We wi ll bolus the patient with D5 half. Continue on D5, and we will follow up by repeating the chemistry after the bolus of 2 hour to readjust the fluid resuscitation, and we will follow up. Discontinue La six. 5.Altered mental status, possible encephalopathy secondary to metabolic/urinary tract infection. Qu estionable if it is secondary to the uremia. I am going to start the patient on Rocephin, and we willie l follow up culture. We will follow up BUN improvement after the hydration if it contributes to the encephalopathy. We will follow up with the Primary. ILANA/CICI Voice ID: [id number] Report ID: [id number]
[2021-05-30] MEDS: CEFTRIAXONE 1,000 MG in NA CHLORIDE 0.9% 50 ML IVPB SCH (15:31)
[2021-05-30 15:38] VITALS: BMI 29.9
[2021-05-30 21:05] LABS: Potassium 3.7 mmol/L (3.5-5.1)
[2021-05-30] MEDS ORDERED: D50W 25 GM/50 ML SYRINGE IV PRN (22:38)
[2021-05-30] MEDS ORDERED: GLUCAGON 1 MG/VIAL IM PRN (22:38)
[2021-05-31] MEDS: D5W 1,000 ML IV SCH ×3 (00:16→15:50)
[2021-05-31] MEDS: IPRATROPIUM BROM 0.5MG/2.5ML NEB SCH ×4 (01:35→20:45)
[2021-05-31] MEDS ORDERED: D5 0.45 NS 1,000 ML IV SCH (05:00)
--- NOTE | 2021-05-31 06:28 | P.PN ---
Subjective Date of Service: 05/31/21 Chief Complaint: Severe hyponatremia with altered mental status and acute kidney injury Subjective: No new changes Physical Examination - Vital Signs Temperature: 97.0 F Blood Pressure: 94/36 Pulse: 66 Respirations: 16 Pulse Ox (%): 94 - Physical Exam General: Other (Appears chronically ill) HEENT: Atraumatic, Normocephalic Neck: Supple Respiratory: Diminished, Other (Symmetric chest expansion) Cardiovascular: No rubs, No murmurs Gastrointestinal: Soft and benign, No guarding Musculoskeletal: No clubbing Integumentary: No warmth Neurological: Normal tone Urinary: Other (No bladder distention) External genitalia: Deferred Rectal: Deferred Assessment And Plan - Plan 1. Acute kidney injury secondary to prerenal state + ATN from prolonged prerenal, superimposed with diuretic use. Lasix d/c'ed. Continue IV hydration as below. Monitor renal panel. 2. Hypernatremia. Wt. 84 kgs. Total boday water 42L. Serum Na decreased to 163. Continue D5W gtt same rate. 3. NAGMA. IV hydration as above. 4. AMS. Hx of Alzheimer's dse. Supportive care.
[2021-05-31] MEDS: INSULIN -REGULAR HUMAN 50 UNIT/0.5 ML ML SQ SCH ×4 (07:30→21:00)
[2021-05-31] MEDS: ALBUTEROL 2.5 MG/3 ML NEB SOL NEB PRN (14:10)
[2021-05-31] MEDS: CEFTRIAXONE 1,000 MG in NA CHLORIDE 0.9% 50 ML IVPB SCH (15:48)
[2021-05-31] MEDS: JUVEN PACKET PO SCH (21:00)
[2021-05-31] MEDS: ENSURE ENLIVE 237 ML CAN PO SCH (21:00)
[2021-05-31 21:08] LABS: RBC Red Blood Cell Count 3.24 M/uL (4.33-5.43)
[2021-05-31 21:58] LABS: Albumin 1.9 g/dL (3.4-5.0); Ferritin 317.8 ng/mL (26-388); Folic Acid, (Folate) 4.4 ng/mL (3.1-17.5); Magnesium 2.4 mg/dL (1.8-2.4); Phosphorus 6.6 mg/dL (2.5-4.9); Potassium 3.6 mmol/L (3.5-5.1)
[2021-06-01] MEDS: IPRATROPIUM BROM 0.5MG/2.5ML NEB SCH ×4 (02:00→20:10)
[2021-06-01] MEDS: INSULIN -REGULAR HUMAN 50 UNIT/0.5 ML ML SQ SCH ×4 (07:30→21:00)
[2021-06-01] MEDS: JUVEN PACKET PO SCH ×2 (08:02→21:00)
[2021-06-01] MEDS: ENSURE ENLIVE 237 ML CAN PO SCH ×2 (08:02→21:00)
[2021-06-01] MEDS: D5W 1,000 ML IV SCH ×2 (14:01→17:02)
[2021-06-01] MEDS: CEFTRIAXONE 1,000 MG in NA CHLORIDE 0.9% 50 ML IVPB SCH (14:01)
[2021-06-01 14:19] LABS: Absolute Lymphocytes (CBC) 1.7 K/uL (0.7-4.9); Hematocrit 29.7 % (39.6-49.0); Lymphocytes % 25.3 % (15.3-44.8); MPV 10.9 fL (7.6-11.3); RBC Red Blood Cell Count 3.08 M/uL (4.33-5.43)
[2021-06-01 15:05] LABS: Albumin 1.7 g/dL (3.4-5.0); Magnesium 3.2 mg/dL (1.8-2.4); Phosphorus 6.2 mg/dL (2.5-4.9); Potassium 3.5 mmol/L (3.5-5.1)
--- NOTE | 2021-06-01 17:06 | P.PN ---
Subjective Date of Service: 06/01/21 Chief Complaint: Severe hyponatremia with altered mental status and acute kidney injury Today still lethargic low UO Will increase D5W not candidate for renal replacement therapy and family declined HD , will cont medical treatment Discussed with daughter Davin lorenzo , Physical exam General: lethargic CHEST; CTAB, no wheezes or rales HEART : RRR. Normal S1,2 no murmur or rub Abd: soft, Nt, sam catheter Ext: no edema Skin : No rash A/P Acute kidney injury secondary to prerenal Azotemia + ATN from prolonged prerenal low UP US : no hydro Cont D5W not candidate for renal replacement therapy and family declined HD , will cont medical treatment Severe Hyponatremia will increase D5W to 100ml/hr AMS pt with advanced demntia at baseline due to dementia , uremia and hypernatremia Cont supportive care Physical Examination - Vital Signs Temperature: 97.1 F Blood Pressure: 107/54 Pulse: 71 Respirations: 18 Pulse Ox (%): 93
[2021-06-01 21:32] LABS: Potassium 3.6 mmol/L (3.5-5.1)
[2021-06-02] MEDS: IPRATROPIUM BROM 0.5MG/2.5ML NEB SCH ×4 (01:40→20:25)
[2021-06-02] MEDS: INSULIN -REGULAR HUMAN 50 UNIT/0.5 ML ML SQ SCH ×4 (07:30→21:00)
[2021-06-02] MEDS: ENSURE ENLIVE 237 ML CAN PO SCH ×2 (08:08→21:00)
[2021-06-02] MEDS: JUVEN PACKET PO SCH ×2 (08:08→21:00)
[2021-06-02] MEDS: D5W 1,000 ML IV SCH ×3 (08:13→17:40)
[2021-06-02 08:44] LABS: Magnesium 2.4 mg/dL (1.8-2.4); Phosphorus 6.2 mg/dL (2.5-4.9)
--- NOTE | 2021-06-02 12:12 | P.PN ---
Subjective Date of Service: 06/02/21 Chief Complaint: Severe hyponatremia with altered mental status and acute kidney injury Today still lethargic UO 450ml yesterday Will increase D5W to 150ml/hr Physical exam General: lethargic CHEST; CTAB, no wheezes or rales HEART : RRR. Normal S1,2 no murmur or rub Abd: soft, Nt, sam catheter Ext: no edema Skin : No rash A/P Acute kidney injury secondary to prerenal Azotemia + ATN from prolonged prerenal low UP US : no hydro Cont D5W not candidate for renal replacement therapy and family declined HD , will cont medical treatment Discussed with daughter Davin lorenzo , Severe Hyponatremia will increase D5W to 150ml/hr AMS pt with advanced demntia at baseline due to dementia , uremia and hypernatremia Cont supportive care Physical Examination - Vital Signs Temperature: 96.6 F Blood Pressure: 110/51 Pulse: 73 Respirations: 18 Pulse Ox (%): 97
[2021-06-02] MEDS: CEFTRIAXONE 1,000 MG in NA CHLORIDE 0.9% 50 ML IVPB SCH (14:19)
--- NOTE | 2021-06-02 15:41 | RAD REPORT ---
EXAM DESCRIPTION: RAD - Abdomen 1 View (KUB) - 06/02/2021 3:30 pm CLINICAL HISTORY: vomiting Pain COMPARISON: No comparisons FINDINGS: The bowel gas pattern is non-obstructive. No evidence of free air or pneumatosis. No suspi cious calcifications. No significant bony findings. IMPRESSION: Negative examination.
--- NOTE | 2021-06-02 23:56 | P.PN ---
Date of Service: 05/30/21 Subjective Patient labs continues to improve. Prognosis is poor Physical Examination - Vital Signs Reviewed - Physical Exam General: Alert, In no apparent distress Respiratory: Clear to auscultation bilaterally, Normal air movement Cardiovascular: Regular rate/rhythm, Normal S1 S2 Gastrointestinal: Normal bowel sounds, No tenderness Neurological: Normal gait, Normal speech, Normal strength at 5/5 x4 extr, Normal tone, Normal affect Assessment & Plan - Problems (Diagnosis) (1) Acute kidney injury Current Visit: Yes Status: Acute (2) Alzheimer's dementia Current Visit: No Status: Acute (3) History of DVT (deep vein thrombosis) Current Visit: No Status: Acute (4) Hypernatremia Current Visit: No Status: Acute (5) Metabolic encephalopathy Current Visit: No Status: Acute - Plan Continue with POC as mentioned below 1. Aggressive hydration with D5 water; check BMP 2. Monitor renal function closely 3. Nephrology consultation 4. Strict I's and O's 5. GI and DVT prophylaxis
--- NOTE | 2021-06-02 23:56 | P.PN ---
Date of Service: 05/31/21 Subjective Patient clinically stable. No significant worsening. Continue with monitoring renal function Physical Examination - Vital Signs Reviewed - Physical Exam General: Alert, In no apparent distress; confused Respiratory: Clear to auscultation bilaterally, Normal air movement Cardiovascular: Regular rate/rhythm, Normal S1 S2 Gastrointestinal: Normal bowel sounds, No tenderness Neurological: Normal gait, Normal speech, Normal strength at 5/5 x4 extr, Normal tone, Normal affect Assessment & Plan - Problems (Diagnosis) (1) Acute kidney injury Current Visit: Yes Status: Acute (2) Alzheimer's dementia Current Visit: No Status: Acute (3) History of DVT (deep vein thrombosis) Current Visit: No Status: Acute (4) Hypernatremia Current Visit: No Status: Acute (5) Metabolic encephalopathy Current Visit: No Status: Acute - Plan Plan: 1. Aggressive hydration with D5 water; continue monitor BMP 2. Monitor renal function closely 3. Nephrology consultation 4. Strict I's and O's 5. Discuss with family regarding prognosis; they do not want PEG tube. Will discuss with each other regarding hospice care
[2021-06-03] MEDS: D5W 1,000 ML IV SCH ×3 (00:39→13:41)
--- NOTE | 2021-06-03 01:16 | P.PN ---
Date of Service: 06/01/21 Subjective Creatinine somewhat better. BMP has improved. Physical Examination - Vital Signs Reviewed - Physical Exam General: Alert, In no apparent distress Respiratory: Clear to auscultation bilaterally, Normal air movement Cardiovascular: Regular rate/rhythm, Normal S1 S2 Gastrointestinal: Normal bowel sounds, No tenderness Neurological: Normal gait, Normal speech, Normal strength at 5/5 x4 extr, Normal tone, Normal affect Assessment & Plan - Problems (Diagnosis) (1) Acute kidney injury Current Visit: Yes Status: Acute (2) Alzheimer's dementia Current Visit: No Status: Acute (3) History of DVT (deep vein thrombosis) Current Visit: No Status: Acute (4) Hypernatremia Current Visit: No Status: Acute (5) Metabolic encephalopathy Current Visit: No Status: Acute - Plan Continue with POC as mentioned below 1. Continue with IV hydration with D5 water; check BMP 2. Monitor renal function closely 3. May need to discuss with family regarding prognosis. They are contemplating hospice care and this may be done at the residential. 4. Strict I's and O's 5. GI and DVT prophylaxis
--- NOTE | 2021-06-03 01:18 | P.PN ---
Date of Service: 06/02/21 Subjective Patient hypoglycemic this morning. Creatinine actually increase. I believe the IV fluids were stopped. Patient more awake and alert but prognosis is poor. Family does not want hemodialysis nor do they want a PEG tube. They are wanting hospice care once he goes back to residential. I do not believe correcting the sodium and creatinine will change long-term prognosis. May need to go ahead and proceed with hospice care. Physical Examination - Vital Signs Reviewed - Physical Exam General: Alert, In no apparent distress Respiratory: Clear to auscultation bilaterally, Normal air movement Cardiovascular: Regular rate/rhythm, Normal S1 S2 Gastrointestinal: Normal bowel sounds, No tenderness Neurological: Normal gait, Normal speech, Normal strength at 5/5 x4 extr, Normal tone, Normal affect Assessment & Plan - Problems (Diagnosis) (1) Acute kidney injury Current Visit: Yes Status: Acute (2) Alzheimer's dementia Current Visit: No Status: Acute (3) History of DVT (deep vein thrombosis) Current Visit: No Status: Acute (4) Hypernatremia Current Visit: No Status: Acute (5) Metabolic encephalopathy Current Visit: No Status: Acute - Plan Continue with POC as mentioned below 1. Continue with IV hydration with D5 water; check BMP; continue monitoring la bs 2. Monitor renal function closely 3. May need to discuss with family regarding prognosis. They are contemplating hospice care and this may be done at the residential. 4. GI and DVT prophylaxis
[2021-06-03] MEDS: IPRATROPIUM BROM 0.5MG/2.5ML NEB SCH ×3 (02:00→14:12)
[2021-06-03 06:08] LABS: Magnesium 2.7 mg/dL (1.8-2.4); Phosphorus 5.9 mg/dL (2.5-4.9); Potassium 3.2 mmol/L (3.5-5.1)
[2021-06-03] MEDS: INSULIN -REGULAR HUMAN 50 UNIT/0.5 ML ML SQ SCH ×3 (07:30→16:15)
[2021-06-03] MEDS: ENSURE ENLIVE 237 ML CAN PO SCH (09:00)
[2021-06-03] MEDS: JUVEN PACKET PO SCH (09:00)
[2021-06-03 12:13] VITALS: O2SAT 94
--- NOTE | 2021-06-03 13:29 | P.PN ---
Subjective Date of Service: 06/03/21 Chief Complaint: Severe hyponatremia with altered mental status and acute kidney injury Subjective: Demented Physical Examination - Vital Signs Temperature: 95.6 F Blood Pressure: 186/79 Pulse: 75 Respirations: 18 Pulse Ox (%): 94 Assessment & Plan Discharge Plan: Halfway (with hospice) Physician Review Additional Text: COVID: Negative CXR: COMPARISON: Chest Single View dated 03/03/2021; Chest Single View dated 08/31/2019; Chest Single View dated 08/09/2019; Chest Single View dated 08/06/2019 FINDINGS: Lines: None. Lungs: No evidence of edema or pneumonia. Pleural: No significant pleural effusions or pneumothorax. Cardiac: The heart size is within normal limits. Bones: No acute fractures. IMPRESSION: No acute cardiopulmonary disease. Renal US: COMPARISON: No comparisons FINDINGS: The kidneys are both echogenic containing multiple varying size cysts. The right kidney measures 9.2 x 4.7 x 4.5 cm. No hydronephrosis, focal mass or perinephric fluid. The left kidney measures 8.9 x 5.0 x 4.5 cm. No hydronephrosis, focal mass or perinephric fluid. Bladder debris is present with several bladder diverticulum. IMPRESSION: Bilateral echogenic kidneys are present with multiple varying size cysts. Bladder debris and multiple diverticula are present. KUB: COMPARISON: No comparisons FINDINGS: The bowel gas pattern is non-obstructive. No evidence of free air or pneumatosis. No suspicious calcifications. No significant bony findings. IMPRESSION: Negative examination. Physical Exam: GENERAL: Patient with severe dementia VITAL SIGNS: Reviewed HEENT: Neck supple. Patient appears dry. LUNGS: Clear to auscultation. No crackles or wheezes are heard. HEART: Regular rate and rhythm, no appreciable gallops, rubs, murmurs or extra heart sounds ABDOMEN: Soft, nontender, and nondistended. Positive bowel sounds. No hepatosplenomegaly was noted. EXTREMITIES: Without any cyanosis, clubbing, rash, lesions or peripheral edema. NEUROLOGIC: Patient with severe dementia SKIN: Normal color, turgor and temperature. No ulcerations or rashes noted. Impression: Acute renal failure with hypernatremia, metabolic acidosis, and dehydration Advanced dementia BPH Hypothyroidism Anemia of chronic disease Plan: Patient remains on D5W. Still no significant change. Renal function still compromised. Spoke with family at length. Family does not want patient to have a PEG tube or dialysis. As there has been no change in status or improvement family has decided on hospice at the skilled nursing. Comfort measures to be continued there. Advance care directives addressed. Patient is DO NOT RESUSCITATE. Will speak with psychiatric social worker supervisor to help arrange. We will also discuss with nephrology. Code Status: This was discussed in detail with family. Patient is a DO NOT RESUSCITATE. DVT prophylaxis: Heparin Advanced Care Planning-30 minutes: Spoke with daughter at length. Daughter recommends patient going to the skilled nursing with hospice in place. Time Spent Managing Pts Care (In Minutes): 55
[2021-06-03] MEDS: CEFTRIAXONE 1,000 MG in NA CHLORIDE 0.9% 50 ML IVPB SCH (13:41)
--- NOTE | 2021-06-03 16:53 | P.DS ---
Admission Date: 05/29/21 Discharge Date: 06/03/21 Primary Care Provider: correction Disposition: TRANSFER TO [facility] Discharge Condition: FAIR Reason for Admission: Severe hyponatremia with altered mental status and acute kidney injury Consultations: Nephrology-Dr. Rhodes Procedures: COVID: Negative CXR: COMPARISON: Chest Single View dated 03/03/2021; Chest Single View dated 08/31/2019; Chest Single View dated 08/09/2019; Chest Single View dated 08/06/2019 FINDINGS: Lines: None. Lungs: No evidence of edema or pneumonia. Pleural: No significant pleural effusions or pneumothorax. Cardiac: The heart size is within normal limits. Bones: No acute fractures. IMPRESSION: No acute cardiopulmonary disease. Renal US: COMPARISON: No comparisons FINDINGS: The kidneys are both echogenic containing multiple varying size cysts. The right kidney measures 9.2 x 4.7 x 4.5 cm. No hydronephrosis, focal mass or perinephric fluid. The left kidney measures 8.9 x 5.0 x 4.5 cm. No hydronephrosis, focal mass or perinephric fluid. Bladder debris is present with several bladder diverticulum. IMPRESSION: Bilateral echogenic kidneys are present with multiple varying size cysts. Bladder debris and multiple diverticula are present. KUB: COMPARISON: No comparisons FINDINGS: The bowel gas pattern is non-obstructive. No evidence of free air or pneumatosis. No suspicious calcifications. No significant bony findings. IMPRESSION: Negative examination. Medical problem list: Acute renal failure with hypernatremia, metabolic acidosis, and dehydration Advanced dementia BPH Hypothyroidism Anemia of chronic disease Brief History of Present Illness: 89-year-old gentleman who lives at [facility] and and a history of Alzheimer's dementia who is not really able to give us much history who comes into the hospital severely dehydrated. He had patient's sodium was 179. Patient is also in acute renal failure. Patient was admitted for treatment Hospital Course: Patient presented with acute renal failure with hypernatremia, metabolic acidosis and severe dehydration. Patient with underlying advanced dementia, BPH, hypothyroidism and anemia of chronic disease. Patient was seen and evaluated by nephrology. Patient received IV fluids with improvement of his hypernatremia. His renal function did not improve. After discussing with family, end-of-life issues were addressed in detail. Family did not want the patient to have to go through dialysis or PEG tube placement. As his condition did not significantly improve family decided on hospice. Patient will return to the senior living with hospice in place. Continue with hospice and comfort measures. Vital Signs/Physical Exam: Temp Pulse Resp BP Pulse Ox 95.6 F L 75 18 186/79 H 94 06/03/21 13:32 06/03/21 13:32 06/03/21 13:32 06/03/21 13:32 06/03/21 13:32 General: Demented, Other (Advanced dementia) HEENT: Atraumatic Neck: Supple Respiratory: Clear to auscultation bilaterally Cardiovascular: Normal pulses, Regular rate/rhythm Gastrointestinal: Normal bowel sounds, No masses, No rebound, No guarding Musculoskeletal: No tenderness, No warmth Neurological: Dementia Laboratory Data at Discharge: WBC 6.60 K/uL (4.3-10.9) D 06/01/21 14:11 Hgb 9.0 g/dL (13.6-17.9) L 06/01/21 14:11 Hct 29.7 % (39.6-49.0) L 06/01/21 14:11 Plt Count 85 K/uL (152-406) L 06/01/21 14:11 PT 14.7 SECONDS (9.5-12.5) H 05/30/21 05:42 INR 1.28 05/30/21 05:42 APTT 29.3 SECONDS (24.3-36.9) 05/30/21 05:42 Sodium 155 mmol/L (136-145) H 06/03/21 05:09 Potassium 3.2 mmol/L (3.5-5.1) L 06/03/21 05:09 BUN 143 mg/dL (7-18) H 06/03/21 05:09 Creatinine 7.01 mg/dL (0.55-1.3) H* 06/03/21 05:09 Glucose 107 mg/dL (74-106) H 06/03/21 05:09 Uric Acid 11.9 mg/dL (3.5-7.2) H 05/29/21 14:52 Phosphorus 5.9 mg/dL (2.5-4.9) H 06/03/21 05:09 Magnesium 2.7 mg/dL (1.8-2.4) H 06/03/21 05:09 Total Bilirubin 0.3 mg/dL (0.2-1.0) 05/30/21 05:42 AST 54 U/L (15-37) H 05/30/21 05:42 ALT 59 U/L (12-78) 05/30/21 05:42 Alkaline Phosphatase 178 U/L (45-117) H 05/30/21 05:42 Home Medications: Amlodipine [Norvasc*] 1 tab PO DAILY 06/02/21 Ascorbic Acid 1 tab PO DAILY 06/02/21 Aspirin [Aspirin EC] 1 tab PO DAILY 06/02/21 Cholecalciferol (Vitamin D3) [Vitamin D 1000 Iu Tab*] 2 tab PO DAILY 06/02/21 Cyanocobalamin (Vitamin B-12) [B-12] 1 tab PO DAILY 06/02/21 Isosorbide Mononitrate [Isosorbide Mononitrate ER] 1 tab PO DAILY 06/02/21 Levothyroxine [Synthroid*] 1 tab PO DAILY 06/02/21 Lovastatin 1 tab PO DAILY 06/02/21 Memantine HCl [Namenda] 1 tab PO BID 06/02/21 Tamsulosin HCl [Flomax] 1 tab PO BEDTIME 06/02/21 Tramadol HCl [Ultram] 1 tab PO Q12H PRN 06/02/21 Physician Discharge Instructions: Patient to return to senior living with hospice in place. Continue comfort measures there. Diet: Comfort Activity: Comfort Followup: NONE,NONE [Primary Care Provider] - Time spent managing pt's care (in minutes): 55
[2021-06-03 17:11] VITALS: BP 120/58
[2021-06-03 18:21] VITALS: TEMP 96.2
--- NOTE | 2021-06-03 22:21 | PN ---
Date of Progress Note: 06/03/2021 Chief Complaint: Severe hypernatremia with altered mental status and acute kidney injury. History Of Present Illness: Patient has nonoliguric urine output, although azotemia has been consist ently on high side. Patient, according to the family, declined dialysis and dialysis was not started since the patient and family decided against dialysis. Review of Systems: Patient is confused. Cannot provide review of systems. Physical Examination: Chest: Clear to auscultation bilaterally. Heart: S1, S2. Abdomen: Soft, benign. Extremities: No edema. Impression: 1.Acute kidney injury on chronic kidney disease, associated with volume depletion, dehydration. Hyp ernatremia has improved in response to D5W infusion. Sodium level today is 155. On arrival to the [facility] on May 29, was 176, glucose is 107 today, and on arrival to the hospital was 208. 2.Patient has multiple medical problems. He declined dialysis. Plan is to continue IV fluids. 3.Mild metabolic acidosis, bicarbonate is 19, chloride is 125, which corresponds to sodium 155 today , potassium is 3.2, phosphorus 5.9. EB/MODL Voice ID: [id number] Report ID: [id number]
[2021-06-04] MEDS ORDERED: LEVOTHYROXINE SODIUM 100 MCG VIAL IV SCH (06:00)
[2021-06-04] MEDS ORDERED: THIAMINE 200 MG/2 ML INJ IVP SCH (09:00)
[2021-06-04] MEDS ORDERED: FOLIC ACID 5 MG/ML VIAL IVP SCH (09:00)
[2021-06-04] MEDS ORDERED: FOLIC ACID 1 MG in NA CHLORIDE 0.9% 50 ML IV SCH (09:00)
[2021-06-05 21:03] LABS: Albumin, (SPE) 2.4 g/dL (3.8-4.8); Alpha-1-Globulins 0.5 g/dL (0.2-0.3); Alpha-2-Globulins 0.6 g/dL (0.5-0.9); Gamma Globulins 1.4 g/dL (0.8-1.7); INTERPRETATION REPORT
[2021-06-05 23:24] LABS: Vitamin D 1,25-Dihydroxy Total 11 pg/mL (18-72); Vitamin D,1,25-OH2, D2 <8 pg/mL
== END 2021-06-03 20:04 | disposition hospice, inpatient (51) | DRG 682 ==
LOC: ER 13:37 → ERHOLD 18:17 → 2ND 20:19
PROVIDERS: ADMIT Hospitalist; ATTEND Hospitalist
DX: N17.0 Acute kidney failure with tubular necrosis (principal); G93.41 Metabolic encephalopathy; E87.0 Hyperosmolality and hypernatremia; E87.2 Acidosis; N39.0 Urinary tract infection, site not specified; E86.0 Dehydration; N40.0 Benign prostatic hyperplasia without lower urinary tract symptoms; E03.9 Hypothyroidism, unspecified; D63.8 Anemia in other chronic diseases classified elsewhere; G30.9 Alzheimer's disease, unspecified; F02.80 Dementia in other diseases classified elsewhere, unspecified severity, without behavioral disturbance, psychotic disturbance, mood disturbance, and anxiety; I10 Essential (primary) hypertension; E78.5 Hyperlipidemia, unspecified; Z86.718 Personal history of other venous thrombosis and embolism; Z66 Do not resuscitate; Z20.822 Contact with and (suspected) exposure to COVID-19
CPT/HCPCS: 36415; 51702; 71045; 74018; 76770; 80048; 80053; 80069; 81003; 81015; 82550; 82570; 82607; 82652; 82728; 82746; 82947; 83540; 83735; 83880; 83970; 84132; 84165; 84300; 84466; 84550; 85025; 85044; 85610; 85730; 86038; 87077; 87086; 87088; 87186; 93005; 94640; 96361; 96365; 96366; 96375; 99285; J2270; J2405; J7030; J7799; U0003